=== PATIENT | male | born 1975 | race African-American/Black ===

== ENCOUNTER 2017-03-27 19:05 | Emergency (ER) | payer MEDICAID, OTHER ==
[~2017-03-27] VITALS: Ht 170.2 cm; Wt 88.0 kg
[~2017-03-27 19:05] MED LIST: ASPI1TAB57 PO; ATOR20TA15 PO; CARV6.252 PO; CEFU1TAB20 PO; FURO1TAB60 PO; GABA100C4 PO; LEVEMIR SQ; LISI-519 PO; PLAV75TA29 PO; POTA-163 PO; SPIR25TA PO; TRAZ50TA12 PO
[2017-03-27 19:08] VITALS: BP 123/90; PULSE 86; RESP 20; TEMP 98.1; O2SAT 91
--- NOTE | 2017-03-27 19:37 | PD ---
HPI Chief Complaint: Cold / Flu Symptoms Time Seen by Provider: 19:26 Travel History International Travel<30 days: No Contact w/Intl Traveler<30days: No Traveled to known affect area: No History of Present Illness HPI 42-year-old black male presents from her apartment with complaints of cough, congestion, shortness of breath and wheezing. He has had symptoms posttussive emesis. Patient denies any fever or chills. No ear pain or sore throat. Patient states that he has had no ill nausea. He states that he vomited with coughing. No abdominal pain. No dysuria or frequency. Symptoms are mild to moderate. Worse with coughing. No alleviating factors. PFSH Past Medical History Atrial Fibrillation: Yes Cancer: No Cardiovascular Problems: Yes (PACEMAKER, STENT PLACEMENT) High Cholesterol: Yes Chest Pain: Yes Congestive Heart Failure: Yes Diabetes: Yes Patient Takes Glucophage: Yes Diminished Hearing: No Endocrine: Yes Gastrointestinal Disorders: No Genitourinary: No Hypertension: Yes Implanted Vascular Access Dvce: Yes Musculoskeletal: No Neurologic: No Psychiatric: No Reproductive: No Respiratory: No Immunizations Current: Yes Myocardial Infarction: Yes (X 1 IN 2009) Past Surgical History AICD: Yes ([id number]) Body Medical Devices: PACEMAKER Cardiac Surgery: Yes (AICD/PACER) Coronary Stent: Yes (X 1 ) Other Surgery: Yes (PACEMAKER, stent) Social History Alcohol Use: Yes (SOCIALLY) Tobacco Use: No Substance Use: No Allergies-Medications (Allergen,Severity, Reaction): Coded Allergies: hydromorphone (Verified Allergy, Severe, Hives, 03/27/17) phenobarbital (Unverified Allergy, Unknown, 03/27/17) Reported Meds & Prescriptions Reported Meds & Active Scripts Active Proventil Hfa 6.7 GM Inh (Albuterol Sulfate) 90 Mcg/Act Aer 2 Puff INH Q4-6H PRN Deltasone (Prednisone) 20 Mg Tab 20 Mg PO BID 5 Days Aspirin 81 (Aspirin) 81 Mg Tabdr 81 Mg PO DAILY Levemir Inj (Insulin Detemir) 1,000 unit/ 10 ML Vial 30 Units SQ HS Do not mix with any other Insulin. Lisinopril 5 Mg Tab 5 Mg PO DAILY Spironolactone 25 Mg Tab 25 Mg PO DAILY Plavix (Clopidogrel Bisulfate) 75 Mg Tab 75 Mg PO DAILY Carvedilol 6.25 Mg Tab 6.25 Mg PO BID Potassium Chloride ER (Potassium Chloride) 20 Meq Tab 20 Meq PO DAILY Lasix (Furosemide) 40 Mg Tab 40 Mg PO DAILY Atorvastatin (Atorvastatin Calcium) 20 Mg Tab 20 Mg PO HS Trazodone (Trazodone HCl) 50 Mg Tab 50 Mg PO HS Gabapentin 100 Mg Cap 100 Mg PO TID Review of Systems Except as stated in HPI: all other systems reviewed are Neg Physical Exam Narrative GENERAL: Well-developed, well-nourished in no apparent distress. Nontoxic appearing. HEAD: Normocephalic, atraumatic. EYES: Pupils equal round and reactive. Extraocular motions intact. No scleral icterus. No injection or drainage. ENT: Nose clear. Throat without erythema, tonsillar hypertrophy or exudate. Uvula midline. Airway patent. NECK: Trachea midline. Supple, nontender, moves head freely. No central bony tenderness or spasm. CARDIOVASCULAR: Regular rate and rhythm without murmurs, gallops, or rubs. RESPIRATORY: Scattered rhonchi with fine expiratory wheeze. No Rales. Speaks in full complete sentences. GASTROINTESTINAL: Abdomen soft, non-tender, nondistended. No hepato-splenomegaly , or palpable masses. No guarding. EXTREMITIES: No clubbing, cyanosis, or edema. No joint tenderness. BACK: Nontender without deformity. No flank tenderness. NEUROLOGICAL: Awake, alert and oriented x 3 .Cranial nerves grossly intact. Motor and sensory grossly within normal limits. Normal speech. Data Data Last Documented VS Vital Signs Date Time Temp Pulse Resp B/P (MAP) Pulse Ox O2 Delivery O2 Flow Rate FiO2 03/27/17 19:08 98.1 86 20 123/90 (101) 91 Orders Orders Ondansetron Odt (Zofran Odt) (03/27/17 19:45) Prednisone (Deltasone) (03/27/17 19:45) Albuterol-Ipratropium Neb (Duoneb Neb) (03/27/17 19:45) Electrocardiogram (03/27/17 20:42) Complete Blood Count With Diff (03/27/17 20:42) Basic Metabolic Panel (Bmp) (03/27/17 20:42) Troponin I (03/27/17 20:42) B-Type Natriuretic Peptide (03/27/17 20:42) Chest, Single Ap (03/27/17 20:42) Iv Access Insert/Monitor (03/27/17 20:42) Albuterol-Ipratropium Neb (Duoneb Neb) (03/27/17 20:45) Ed Discharge Order (03/27/17 22:22) Labs Laboratory Tests Test 03/27/17 21:00 White Blood Count 6.9 TH/MM3 Red Blood Count 6.80 MIL/MM3 Hemoglobin 14.1 GM/DL Hematocrit 43.4 % Mean Corpuscular Volume 63.9 FL Mean Corpuscular Hemoglobin 20.7 PG Mean Corpuscular Hemoglobin Concent 32.5 % Red Cell Distribution Width 20.2 % Platelet Count 176 TH/MM3 Mean Platelet Volume 8.7 FL Neutrophils (%) (Auto) 77.6 % Lymphocytes (%) (Auto) 13.0 % Monocytes (%) (Auto) 8.2 % Eosinophils (%) (Auto) 0.5 % Basophils (%) (Auto) 0.7 % Neutrophils # (Auto) 5.4 TH/MM3 Lymphocytes # (Auto) 0.9 TH/MM3 Monocytes # (Auto) 0.6 TH/MM3 Eosinophils # (Auto) 0.0 TH/MM3 Basophils # (Auto) 0.0 TH/MM3 CBC Comment DIFF FINAL Differential Comment Blood Urea Nitrogen 16 MG/DL Creatinine 1.26 MG/DL Random Glucose 166 MG/DL Calcium Level 8.0 MG/DL Sodium Level 131 MEQ/L Potassium Level 3.2 MEQ/L Chloride Level 94 MEQ/L Carbon Dioxide Level 27.4 MEQ/L Anion Gap 10 MEQ/L Estimat Glomerular Filtration Rate 76 ML/MIN Troponin I 0.03 NG/ML B-Type Natriuretic Peptide 555 PG/ML MDM Medical Decision Making Medical Screen Exam Complete: Yes Emergency Medical Condition: Yes Medical Record Reviewed: Yes Interpretation(s) Laboratory Tests Test 03/27/17 21:00 White Blood Count 6.9 TH/MM3 Red Blood Count 6.80 MIL/MM3 Hemoglobin 14.1 GM/DL Hematocrit 43.4 % Mean Corpuscular Volume 63.9 FL Mean Corpuscular Hemoglobin 20.7 PG Mean Corpuscular Hemoglobin Concent 32.5 % Red Cell Distribution Width 20.2 % Platelet Count 176 TH/MM3 Mean Platelet Volume 8.7 FL Neutrophils (%) (Auto) 77.6 % Lymphocytes (%) (Auto) 13.0 % Monocytes (%) (Auto) 8.2 % Eosinophils (%) (Auto) 0.5 % Basophils (%) (Auto) 0.7 % Neutrophils # (Auto) 5.4 TH/MM3 Lymphocytes # (Auto) 0.9 TH/MM3 Monocytes # (Auto) 0.6 TH/MM3 Eosinophils # (Auto) 0.0 TH/MM3 Basophils # (Auto) 0.0 TH/MM3 CBC Comment DIFF FINAL Differential Comment Blood Urea Nitrogen 16 MG/DL Creatinine 1.26 MG/DL Random Glucose 166 MG/DL Calcium Level 8.0 MG/DL Sodium Level 131 MEQ/L Potassium Level 3.2 MEQ/L Chloride Level 94 MEQ/L Carbon Dioxide Level 27.4 MEQ/L Anion Gap 10 MEQ/L Estimat Glomerular Filtration Rate 76 ML/MIN Troponin I 0.03 NG/ML B-Type Natriuretic Peptide 555 PG/ML Last 24 hours Impressions Chest X-Ray 03/27/172041 Signed Impressions: Service Date/Time: Monday, March 27, 2017 21:02 - CONCLUSION: Slight cardiomegaly. Tae Kumar MD Differential Diagnosis MDM: High Differential diagnoses: Pneumonia, bronchitis, URI, asthma, RAD, legionnaire's disease, SARS, ARDS, influenza, bronchiolitis, RSV,PE,CHF Narrative Course Patient is given Zofran 4 mg by mouth, prednisone 40 mg by mouth, and 2 DUO nebs Review the patient's medical record indicates that he has not refilled his medications and nearly a month. He was treated back in January for acute renal failure and congestive heart failure. Due to these new findings we will perform basic laboratory tests including cardiac markers, EKG and chest x-ray. Patient has had a total of 4 respiratory treatments. He's had prednisone. Patient is feeling significantly improved. His had much improved airway movement. Patient's initial wheezing had worsen but now has improved after treatments. I agreed to refill his medications which are numerous. Patient reports having appointment with a physician this week. Patient has not followed up with anyone since his discharge in January. Patient has been strongly advised to fill his prescriptions and continue with his appointment on the third. Patient verbally states understanding. This is dyspnea, reactive airway disease, chronic renal failure, chronic congestive heart failure Diagnosis Primary Impression: Dyspnea Qualified Codes: R06.02 - Shortness of breath Additional Impressions: Reactive airway disease Qualified Codes: J45.40 - Moderate persistent asthma, uncomplicated Chronic renal failure Qualified Codes: N18.9 - Chronic kidney disease, unspecified Chronic congestive heart failure Qualified Codes: I50.32 - Chronic diastolic (congestive) heart failure Patient Instructions: General Instructions Additional Instructions: Rest. Stop smoking. Fill your medications and take as directed. Follow-up with your doctor on the third as scheduled. Return to the ER if any problems. Med/Other Pt SpecificInfo: Prescription(s) given Scripts Albuterol 6.7 GM Inh (Proventil Hfa 6.7 GM Inh) 90 Mcg/Act Aer 2 PUFF INH Q4-6H Y for SHORTNESS OF BREATH, #1 INHALER 0 Refills Prov: Nicci Garland DO 03/27/17 Prednisone (Deltasone) 20 Mg Tab 20 MG PO BID for 5 Days, #10 TAB 0 Refills Prov: Nicci Garland DO 03/27/[address] (Aspirin 81) 81 Mg Tabdr 81 MG PO DAILY for Blood Clot Prevention, #30 TAB 0 Refills Prov: Nicci Garland DO 03/27/17 Insulin Detemir Inj (Levemir Inj) 1,000 unit/ 10 ML Vial 30 UNITS SQ HS for Blood Sugar Management, #30 VIAL 0 Refills Do not mix with any other Insulin. Prov: Nicci Garland DO 03/27/17 Lisinopril (Lisinopril) 5 Mg Tab 5 MG PO DAILY for Blood Pressure Management, #30 TAB 0 Refills Prov: Nicci Garland DO 03/27/17 Spironolactone (Spironolactone) 25 Mg Tab 25 MG PO DAILY for Blood Pressure Management, #30 TAB 0 Refills Prov: Nicci Garland DO 03/27/17 Clopidogrel (Plavix) 75 Mg Tab 75 MG PO DAILY for Blood Clot Prevention, #30 TAB 0 Refills Prov: Nicci Garland DO 03/27/17 Carvedilol (Carvedilol) 6.25 Mg Tab 6.25 MG PO BID, #60 TAB 0 Refills Prov: Nicci Garland DO 03/27/17 Potassium Chloride ER (Potassium Chloride ER) 20 Meq Tab 20 MEQ PO DAILY for Electrolyte Replacement, #30 TAB 0 Refills Prov: Nicci Garland DO 03/27/17 Furosemide (Lasix) 40 Mg Tab 40 MG PO DAILY for HEART FAILURE, #30 TAB 0 Refills Prov: Nicci Garland DO 03/27/17 Atorvastatin (Atorvastatin) 20 Mg Tab 20 MG PO HS for Cholesterol Management, #30 TAB 0 Refills Prov: Nicci Garland DO 03/27/17 Disposition: 01 DISCHARGE HOME Condition: Stable Tony Flowers Mar 27, 2017 19:37
[2017-03-27] MEDS ORDERED: ONDANSETRON ODT 4 MG TAB PO ONE (19:45)
[2017-03-27] MEDS ORDERED: predniSONE 20 MG TAB PO ONE (19:45)
[2017-03-27] MEDS: RESP: ALBUTEROL 2.5 MG/IPRATROPIUM 0.5 MG NEB (SCH) INH ×2 (20:12→21:06)
[2017-03-27 21:17] LABS: AUTOMATED NEUTROPHIL # 5.4 TH/MM3 (1.8-7.7); BASOPHIL % 0.7 % (0.0-2.0); EOSINOPHIL % 0.5 % (0.0-4.0); HEMATOCRIT 43.4 % (39.0-51.0); HEMOGLOBIN 14.1 GM/DL (13.0-17.0); LYMPHOCYTE # 0.9 TH/MM3 (1.0-4.8); MEAN CELL VOLUME 63.9 FL (80.0-100.0); MEAN CORPUSCULAR HEMOGLOBIN 20.7 PG (27.0-34.0); MEAN CORPUSCULAR HGB CONC 32.5 % (32.0-36.0); MEAN PLATELET VOLUME 8.7 FL (7.0-11.0); MONO % 8.2 % (0.0-8.0); MONOCYTE # 0.6 TH/MM3 (0-0.9); NEUT % 77.6 % (16.0-70.0); PLATELET COUNT 176 TH/MM3 (150-450); RED CELL DISTRIBUTION WIDTH 20.2 % (11.6-17.2); WHITE BLOOD COUNT 6.9 TH/MM3 (4.0-11.0)
--- NOTE | 2017-03-27 21:31 | RADRPT ---
EXAM DATE/TIME: 03/27/2017 21:02 [facility] COMPARISON: CHEST PA & LAT, February 06, 2017, 2:47. INDICATIONS : Cough and congestion for four days. MEDICAL HISTORY : Diabetes mellitus type II. Smoker. SURGICAL HISTORY : Pacemaker. Pacemaker. Cardiac stent. ENCOUNTER: Initial ACUITY: 4 - 6 days PAIN SCORE: 0/10 LOCATION: Bilateral chest FINDINGS: The lungs are clear without infiltrate, nodule, or mass. There is no appreciable pleural effusion fo r technique. Slight cardiomegaly seen. Left subclavian transvenous pacer wires are present with tips in the right atrium and right ventricle. CONCLUSION: Slight cardiomegaly. Tae Kumar MD on March 27, 2017 at 21:28 Board Certified Radiologist. This report was verified electronically.
[2017-03-27 22:08] LABS: BICARBONATE 27.4 MEQ/L (21.0-32.0); CREATININE 1.26 MG/DL (0.60-1.30)
[2017-03-27 22:11] LABS: TROPONIN I 0.03 NG/ML (0.02-0.05)
[2017-03-27] MEDS ORDERED: PLAV75TA29 PO (22:18)
[2017-03-27] MEDS ORDERED: ASPI1TAB57 PO (22:18)
[2017-03-27] MEDS ORDERED: POTA-163 PO (22:18)
[2017-03-27] MEDS ORDERED: FURO1TAB60 PO (22:18)
[2017-03-27] MEDS ORDERED: CARV6.252 PO (22:18)
[2017-03-27] MEDS ORDERED: LEVEMIR SQ (22:18)
[2017-03-27] MEDS ORDERED: LISI-519 PO (22:18)
[2017-03-27] MEDS ORDERED: ATOR20TA15 PO (22:18)
[2017-03-27] MEDS ORDERED: SPIR25TA PO (22:18)
[2017-03-27] MEDS ORDERED: PRED-503 PO (22:19)
[2017-03-27] MEDS ORDERED: ALBU6.7H INH (22:19)
--- NOTE | 2017-03-28 17:56 | EKG ---
Date Performed: 03/27/2017 Time Performed: 20:49:08 PTAGE: 42 years EKG: ELECTRONIC VENTRICULAR PACEMAKER ABNORMAL RHYTHM ECG PREVIOUS TRACING : 02/06/2017 02.03 Compared to prior tracing no significant change DOCTOR: Tapan Browning Interpretating Date/Time 03/28/2017 17:56:12
== END 2017-03-27 23:06 | disposition home or self-care (01) ==
LOC: NEPD 19:05
DX: J45.40 Moderate persistent asthma, uncomplicated (principal); I13.0 Hypertensive heart and chronic kidney disease with heart failure and stage 1 through stage 4 chronic kidney disease, or unspecified chronic kidney disease; N18.9 Chronic kidney disease, unspecified; I50.32 Chronic diastolic (congestive) heart failure; E11.22 Type 2 diabetes mellitus with diabetic chronic kidney disease; I48.91 Unspecified atrial fibrillation; E78.00 Pure hypercholesterolemia, unspecified; I25.2 Old myocardial infarction
CPT/HCPCS: 71045; 80048; 83880; 84484; 85025; 93005; 94640; 94664; 99285; J7512

== ENCOUNTER 2017-04-21 02:04 | Emergency (ER) | payer OTHER ==
[~2017-04-21] VITALS: Ht 180.3 cm; Wt 98.0 kg
[~2017-04-21 02:04] MED LIST changes: +ALBU6.7H INH; -CEFU1TAB20 PO; +PRED-503 PO
[2017-04-21 02:11] VITALS: BP 125/84; PULSE 90; RESP 24; O2SAT 100
[2017-04-21] MEDS ORDERED: methylPREDNISolone SOD SUCC 125 MG/2 ML VIAL IV PUSH ONE (02:45)
[2017-04-21] MEDS ORDERED: NITROGLYCERIN 2% OINT 1 GM PACKET TOP ONE (02:45)
[2017-04-21] MEDS ORDERED: ASPIRIN 325 MG TAB PO ONE (02:45)
[2017-04-21] MEDS ORDERED: SODIUM CHLORIDE 0.9% FLUSH 10 ML FLUSH IVF PRN (02:45)
[2017-04-21 03:03] LABS: AUTOMATED NEUTROPHIL # 4.9 TH/MM3 (1.8-7.7); BASOPHIL # 0.1 TH/MM3 (0-0.2); BASOPHIL % 1.1 % (0.0-2.0); EOSINOPHIL % 0.7 % (0.0-4.0); HEMATOCRIT 43.2 % (39.0-51.0); HEMOGLOBIN 14.2 GM/DL (13.0-17.0); LYMPH % 23.6 % (9.0-44.0); LYMPHOCYTE # 1.7 TH/MM3 (1.0-4.8); MEAN CELL VOLUME 64.6 FL (80.0-100.0); MEAN CORPUSCULAR HEMOGLOBIN 21.2 PG (27.0-34.0); MEAN CORPUSCULAR HGB CONC 32.9 % (32.0-36.0); MEAN PLATELET VOLUME 8.9 FL (7.0-11.0); MONO % 5.6 % (0.0-8.0); MONOCYTE # 0.4 TH/MM3 (0-0.9); PLATELET COUNT 216 TH/MM3 (150-450); RED BLOOD COUNT 6.69 MIL/MM3 (4.50-5.90); RED CELL DISTRIBUTION WIDTH 20.6 % (11.6-17.2); WHITE BLOOD COUNT 7.1 TH/MM3 (4.0-11.0)
--- NOTE | 2017-04-21 03:14 | RADRPT ---
EXAM DATE/TIME: 04/21/2017 02:45 [facility] COMPARISON: CHEST SINGLE AP, March 27, 2017, 21:02. INDICATIONS : Left side Chest pain and shortness of breath MEDICAL HISTORY : Hypercholesterolemia. Hypertension Diabetes mellitus type II. A-Fib, RI SURGICAL HISTORY : Pacemaker. Coronary Stent ENCOUNTER: Initial ACUITY: 1 day PAIN SCORE: 7/10 LOCATION: Bilateral chest FINDINGS: A single view of the chest demonstrates the lungs to be symmetrically aerated without evidence of mas s, infiltrate or effusion. The cardiomediastinal contours are unremarkable. Bilate pacemaker in [place] ce. Osseous structures are intact. CONCLUSION: No acute disease. Home Nelson MD on April 21, 2017 at 3:11 Board Certified Radiologist. This report was verified electronically.
[2017-04-21 03:21] VITALS: BP 128/95; PULSE 128; RESP 18; O2SAT 100
[2017-04-21 03:26] LABS: INTERNATIONAL NORMALIZED RATIO 1.2 RATIO
[2017-04-21 03:30] LABS: ALBUMIN 2.9 GM/DL (3.4-5.0); ALT (GPT) 26 U/L (12-78); AST (GOT) 24 U/L (15-37); BICARBONATE 25.2 MEQ/L (21.0-32.0); BLOOD UREA NITROGEN 14 MG/DL (7-18); CALCIUM 8.2 MG/DL (8.5-10.1); CHLORIDE 103 MEQ/L (98-107); CREATININE 1.33 MG/DL (0.60-1.30); GLOMERULAR FILTRATION RATE 71 ML/MIN (>89); GLUCOSE,RANDOM 227 MG/DL (74-106); LIPASE 121 U/L (73-393); MAGNESIUM 1.7 MG/DL (1.5-2.5); SODIUM (NA) 137 MEQ/L (136-145)
[2017-04-21 03:34] LABS: ALKALINE PHOSPHATASE 178 U/L (45-117); TOTAL BILIRUBIN ADULT 1.7 MG/DL (0.2-1.0); TOTAL PROTEIN 6.5 GM/DL (6.4-8.2); TROPONIN I 0.02 NG/ML (0.02-0.05)
[2017-04-21 04:22] LABS: D-DIMER 0.28 MG/L FEU (0.00-0.50)
[2017-04-21] MEDS ORDERED: FUROSEMIDE 20 MG/2 ML VIAL IV PUSH ONE (04:45)
[2017-04-21] MEDS ORDERED: traMADol HCL 50 MG TAB PO ONE (05:00)
--- NOTE | 2017-04-21 05:08 | PD ---
HPI . Chest pain Chief Complaint: Chest Pain Time Seen by Provider: 02:20 Travel History International Travel<30 days: No Contact w/Intl Traveler<30days: No Traveled to known affect area: No History of Present Illness HPI 42-year-old male extremity poor historian with vague complaints of chest pain that he cannot characterize regarding quality, severity, radiation, association symptoms, or temporal onset or duration. Patient notes being upset regarding social situations at home. No suicidal or homicidal ideations. Nurse Wanda YANEZ discussed the patient's situation with sister over the phone, who is reportedly similarly vague [facility] Past Medical History Narrative Medical Past medical history reviewed. Atrial Fibrillation: Yes Cancer: No Cardiovascular Problems: Yes (PACEMAKER, STENT PLACEMENT) High Cholesterol: Yes Chest Pain: Yes Congestive Heart Failure: Yes Diabetes: Yes Patient Takes Glucophage: No Diminished Hearing: No Endocrine: Yes Gastrointestinal Disorders: No Genitourinary: No Hypertension: Yes Implanted Vascular Access Dvce: Yes Musculoskeletal: No Neurologic: No Psychiatric: No Reproductive: No Respiratory: No Immunizations Current: Yes Myocardial Infarction: Yes (X 1 IN 2009) Past Surgical History AICD: Yes ([id number]) Body Medical Devices: PACEMAKER Cardiac Surgery: Yes (AICD/PACER) Coronary Stent: Yes (X 1 ) Other Surgery: Yes (PACEMAKER, stent) Social History Alcohol Use: Yes (SOCIALLY) Tobacco Use: No Substance Use: No Allergies-Medications (Allergen,Severity, Reaction): Coded Allergies: hydromorphone (Verified Allergy, Severe, Hives, 03/27/17) phenobarbital (Unverified Allergy, Unknown, 03/27/17) Reported Meds & Prescriptions Reported Meds & Active Scripts Active Deltasone (Prednisone) 20 Mg Tab 20 Mg PO BID 5 Days Aspirin 81 (Aspirin) 81 Mg Tabdr 81 Mg PO DAILY Levemir Inj (Insulin Detemir) 1,000 unit/ 10 ML Vial 30 Units SQ HS Do not mix with any other Insulin. Lisinopril 5 Mg Tab 5 Mg PO DAILY Spironolactone 25 Mg Tab 25 Mg PO DAILY Plavix (Clopidogrel Bisulfate) 75 Mg Tab 75 Mg PO DAILY Carvedilol 6.25 Mg Tab 6.25 Mg PO BID Potassium Chloride ER (Potassium Chloride) 20 Meq Tab 20 Meq PO DAILY Lasix (Furosemide) 40 Mg Tab 40 Mg PO DAILY Atorvastatin (Atorvastatin Calcium) 20 Mg Tab 20 Mg PO HS Trazodone (Trazodone HCl) 50 Mg Tab 50 Mg PO HS Gabapentin 100 Mg Cap 100 Mg PO TID Narrative Medication Allergies and medications reviewed Review of Systems ROS Limitations: Poor Historian Except as stated in HPI: all other systems reviewed are Neg Eyes: No: Visual changes Cardiovascular: Positive: Chest Pain or Discomfort Musculoskeletal: Positive: Pain Physical Exam Narrative GENERAL: Awake and alert, seemingly no acute distress. Vital signs afebrile normal and stable SKIN: Warm and dry. Color is normal no diaphoresis cyanosis or pallor HEAD: Atraumatic. Normocephalic. EYES: Pupils equal and round. No scleral icterus. No injection or drainage. ENT: No nasal bleeding or discharge. Mucous membranes pink and moist. NECK: Trachea midline. No JVD. Supple nontender full range of motion CARDIOVASCULAR: Regular rate and rhythm. S1 and S2 no murmurs or gallops RESPIRATORY: No accessory muscle use. Clear to auscultation. Breath sounds equal bilaterally. GASTROINTESTINAL: Abdomen soft, non-tender, nondistended. Hepatic and splenic margins not palpable. MUSCULOSKELETAL: Extremities without clubbing, cyanosis, or edema. No obvious deformities. NEUROLOGICAL: Awake and alert. No obvious deficits PSYCHIATRIC: Poor historian difficult exam Data Data Last Documented VS Vital Signs Date Time Temp Pulse Resp B/P (MAP) Pulse Ox O2 Delivery O2 Flow Rate FiO2 04/21/17 03:21 128 18 128/95 (106) 100 Nasal Cannula 2.00 Orders Orders Electrocardiogram (04/21/17 02:32) B-Type Natriuretic Peptide (04/21/17 02:32) Ckmb (Isoenzyme) Profile (04/21/17 02:32) Complete Blood Count With Diff (04/21/17 02:32) Comprehensive Metabolic Panel (04/21/17 02:32) D-Dimer (04/21/17 02:32) Magnesium (Mg) (04/21/17 02:32) Prothrombin Time / Inr (Pt) (04/21/17 02:32) Act Partial Throm Time (Ptt) (04/21/17 02:32) Troponin I (04/21/17 02:32) Lipase (04/21/17 02:32) Chest, Single Ap (04/21/17 02:32) Ecg Monitoring (04/21/17 02:32) Bilateral Bp Monitoring (04/21/17 02:32) Iv Access Insert/Monitor (04/21/17 02:32) Oximetry (04/21/17 02:32) Oxygen Administration (04/21/17 02:32) Aspirin (Aspirin) (04/21/17 02:45) Nitroglycerin 2% Oint (Nitroglycerin 2% (04/21/17 02:45) Sodium Chloride 0.9% Flush (Ns Flush) (04/21/17 02:45) Methylprednisolone So Succ Inj (Solumedr (04/21/17 02:45) Westergren Sedimentation Rate (04/21/17 02:32) Furosemide Inj (Lasix Inj) (04/21/17 04:45) Troponin I (04/21/17 04:45) Tramadol (Ultram) (04/21/17 05:00) Labs Laboratory Tests Test 04/21/17 02:35 04/21/17 05:19 White Blood Count 7.1 TH/MM3 Red Blood Count 6.69 MIL/MM3 Hemoglobin 14.2 GM/DL Hematocrit 43.2 % Mean Corpuscular Volume 64.6 FL Mean Corpuscular Hemoglobin 21.2 PG Mean Corpuscular Hemoglobin Concent 32.9 % Red Cell Distribution Width 20.6 % Platelet Count 216 TH/MM3 Mean Platelet Volume 8.9 FL Neutrophils (%) (Auto) 69.0 % Lymphocytes (%) (Auto) 23.6 % Monocytes (%) (Auto) 5.6 % Eosinophils (%) (Auto) 0.7 % Basophils (%) (Auto) 1.1 % Neutrophils # (Auto) 4.9 TH/MM3 Lymphocytes # (Auto) 1.7 TH/MM3 Monocytes # (Auto) 0.4 TH/MM3 Eosinophils # (Auto) 0.0 TH/MM3 Basophils # (Auto) 0.1 TH/MM3 CBC Comment DIFF FINAL Differential Comment Erythrocyte Sedimentation Rate 1 mm/hr Prothrombin Time 12.0 SEC Prothromb Time International Ratio 1.2 RATIO Activated Partial Thromboplast Time 21.3 SEC D-Dimer Quantitative (PE/DVT) 0.28 MG/L FEU Blood Urea Nitrogen 14 MG/DL Creatinine 1.33 MG/DL Random Glucose 227 MG/DL Total Protein 6.5 GM/DL Albumin 2.9 GM/DL Calcium Level 8.2 MG/DL Magnesium Level 1.7 MG/DL Alkaline Phosphatase 178 U/L Aspartate Amino Transf (AST/SGOT) 24 U/L Alanine Aminotransferase (ALT/SGPT) 26 U/L Total Bilirubin 1.7 MG/DL Sodium Level 137 MEQ/L Potassium Level 3.9 MEQ/L Chloride Level 103 MEQ/L Carbon Dioxide Level 25.2 MEQ/L Anion Gap 9 MEQ/L Estimat Glomerular Filtration Rate 71 ML/MIN Total Creatine Kinase 45 U/L Troponin I 0.02 NG/ML 0.02 NG/ML B-Type Natriuretic Peptide 493 PG/ML Lipase 121 U/L MDM Medical Decision Making Medical Screen Exam Complete: Yes Emergency Medical Condition: Yes Medical Record Reviewed: Yes Differential Diagnosis Chest pain, fictitious disorder, Narrative Course 42-year-old male who initially had chest pain upon presentation, expressed being quite upset about some social situation at home that he would not elaborate upon however patient did deny suicidal or homicidal ideations. Patient has extensive past medical history drinks distal heart failure, pacemaker as well as a lung condition. Patient notes pain all over, but cannot or will not elaborate. As discussed with the patient's sister via phone, noted the patient started having these complaints 1 the landlord turn the heat off. No timeframe given for that occurrence. Patient cannot or will not reliably answer questions. Objective pruritic criteria obtained, EKG paced rhythm at 90 bpm, chest x-ray mild cardiomegaly, no infiltrates noted. Laboratory examinations reviewed, patient is mildly elevated BNP consistent with history of CHF and cardiomegaly noted on chest x-ray. Troponin normal. Repeat troponin pending. Diagnosis Primary Impression: Chest pain Qualified Codes: R07.9 - Chest pain, unspecified Patient Instructions: Chest Pain (ED), General Instructions Additional Instructions: Follow-up with your doctor. Return for worsening Disposition: 01 DISCHARGE HOME Condition: Stable Julius Yeager MD Apr 21, 2017 05:08
--- NOTE | 2017-04-21 08:33 | EKG ---
Date Performed: 04/21/2017 Time Performed: 02:11:51 PTAGE: 42 years EKG: ELECTRONIC VENTRICULAR PACEMAKER ABNORMAL RHYTHM ECG NO PREVIOUS TRACING DOCTOR: Mariusz Polanco Interpretating Date/Time 04/21/2017 08:32:52
== END 2017-04-21 06:56 | disposition home or self-care (01) ==
LOC: NEPE 02:04
DX: R07.9 Chest pain, unspecified (principal); I51.7 Cardiomegaly; I48.91 Unspecified atrial fibrillation; E78.00 Pure hypercholesterolemia, unspecified; I11.0 Hypertensive heart disease with heart failure; I50.9 Heart failure, unspecified; E11.9 Type 2 diabetes mellitus without complications; I25.2 Old myocardial infarction; R94.31 Abnormal electrocardiogram [ECG] [EKG]
CPT/HCPCS: 71045; 80053; 82550; 83690; 83735; 83880; 84484; 85025; 85379; 85610; 85652; 85730; 93005; 96374; 96375; 99285; J1940; J2930

== ENCOUNTER 2017-04-24 15:25 | Inpatient (IN) | payer OTHER, MEDICARE ==
[~2017-04-24] VITALS: Ht 180.3 cm; Wt 875.0 kg
[2017-04-24] VITALS (7 sets, daily range): BP systolic 135–147; BP diastolic 93–100; PULSE 88–104; RESP 18; TEMP 97.7; O2SAT 94–98
[~2017-04-24 15:25] MED LIST changes: -ALBU6.7H INH
[2017-04-24] MEDS ORDERED: SODIUM CHLOR 0.9% 1000 ML INJ 1,000 ML IV ONE (15:34)
--- NOTE | 2017-04-24 15:41 | PD ---
HPI Chief Complaint: stroke alert Time Seen by Provider: 15:33 Travel History International Travel<30 days: No Contact w/Intl Traveler<30days: No History of Present Illness HPI Patient 42-year-old male who is history is extremely limited by the fact that he is altered mental status presents emergency Department with left-sided weakness apparently onset approximately 30 minutes prior to arrival crying the EMS. EMS stated the family noticed that he had left-sided facial droop and was unable to move his left upper trauma left lower extremity and that he was nearly obtunded, no evidence of substance use on scene, patient apparently has a history of diabetes and his prehospital sugar was in excess of 300, patient is able to open his eyes to command, is very difficult to get him to follow commands secondary to his level of alertness. He is nearly incomprehensible words. This significantly limits history. Patient's sister arrive sometimes after and states he does have a history of congestive heart failure indeed has been here many times for chest pain and headache in the recent past. He takes Plavix but is not on any blood thinners according to her. PFSH Past Medical History Atrial Fibrillation: Yes Cancer: No Cardiovascular Problems: Yes (PACEMAKER, STENT PLACEMENT) High Cholesterol: Yes Chest Pain: Yes Congestive Heart Failure: Yes Diabetes: Yes Diminished Hearing: No Endocrine: Yes Gastrointestinal Disorders: No Genitourinary: No Hypertension: Yes Implanted Vascular Access Dvce: Yes Musculoskeletal: No Neurologic: No Psychiatric: No Reproductive: No Respiratory: No Immunizations Current: Yes Myocardial Infarction: Yes (X 1 IN 2009) Past Surgical History AICD: Yes ([id number]) Body Medical Devices: PACEMAKER Cardiac Surgery: Yes (AICD/PACER) Coronary Stent: Yes (X 1 ) Other Surgery: Yes (PACEMAKER, stent) Social History Alcohol Use: Yes (SOCIALLY) Tobacco Use: No Substance Use: No Allergies-Medications (Allergen,Severity, Reaction): Coded Allergies: hydromorphone (Verified Allergy, Severe, Hives, 03/27/17) phenobarbital (Unverified Allergy, Unknown, 03/27/17) MRI PRECAUTION (Verified Adverse Reaction, Severe, 04/24/17) [facility] PACEMAKER/DEFIB 04/24/17 COLLIN Reported Meds & Prescriptions Reported Meds & Active Scripts Active Deltasone (Prednisone) 20 Mg Tab 20 Mg PO BID 5 Days Aspirin 81 (Aspirin) 81 Mg Tabdr 81 Mg PO DAILY Levemir Inj (Insulin Detemir) 1,000 unit/ 10 ML Vial 30 Units SQ HS Do not mix with any other Insulin. Lisinopril 5 Mg Tab 5 Mg PO DAILY Spironolactone 25 Mg Tab 25 Mg PO DAILY Plavix (Clopidogrel Bisulfate) 75 Mg Tab 75 Mg PO DAILY Carvedilol 6.25 Mg Tab 6.25 Mg PO BID Potassium Chloride ER (Potassium Chloride) 20 Meq Tab 20 Meq PO DAILY Lasix (Furosemide) 40 Mg Tab 40 Mg PO DAILY Atorvastatin (Atorvastatin Calcium) 20 Mg Tab 20 Mg PO HS Trazodone (Trazodone HCl) 50 Mg Tab 50 Mg PO HS Gabapentin 100 Mg Cap 100 Mg PO TID Review of Systems ROS Limitations: Altered Mental Status Physical Exam Exam Limitations: Altered Mental Status Narrative GENERAL: Well-developed obese male, obvious left-sided facial droop. SKIN: Focused skin assessment warm/dry. HEAD: Atraumatic. Normocephalic. EYES: Pupils equal and round. No scleral icterus. No injection or drainage. Preference for left-sided gaze ENT: No nasal bleeding or discharge. Mucous membranes pink and moist. NECK: Trachea midline. No JVD. CARDIOVASCULAR: Regular rate and rhythm. No murmur appreciated. RESPIRATORY: No accessory muscle use. Clear to auscultation. Breath sounds equal bilaterally. GASTROINTESTINAL: Abdomen soft, non-tender, nondistended. Hepatic and splenic margins not palpable. MUSCULOSKELETAL: No obvious deformities. No clubbing. No cyanosis. No edema. NEUROLOGICAL: Awake and somnolent bordering on lethargic, GCS:[id number]=04. Patient is an obvious left-sided facial droop with some drooling, he is coughing indicating protection of his airway. Patient has some twitching of his left hand and left foot which is singular, downgoing Babinski on the right, no response on the left, pupils are sluggish but 4 mm and equal. He has a preference for left-sided gaze. Data Data Last Documented VS Vital Signs Date Time Temp Pulse Resp B/P (MAP) Pulse Ox O2 Delivery O2 Flow Rate FiO2 04/24/17 16:44 100 18 141/95 (110) 98 Nasal Cannula 2.00 Orders Orders Diet Npo (04/24/17 Dinner) Activity Bed Rest (04/24/17 ) Electrocardiogram (04/24/17 ) I-Stat Profile (04/24/17 15:34) Prothrombin Time / Inr (Pt) (04/24/17 15:34) Act Partial Throm Time (Ptt) (04/24/17 15:34) Complete Blood Count With Diff (04/24/17 15:34) Fibrinogen (04/24/17 15:34) Creatine Kinase (Cpk) (04/24/17 15:34) Troponin I (04/24/17 15:34) Ua Includes Microscopic (04/24/17 15:34) Drug Screen, Random Urine (04/24/17 15:34) Type And Screen (04/24/17 15:34) Ct Brain W/O Iv Contrast(Rout) (04/24/17 ) Cta Brain W Iv Contrast W 3d (04/24/17 15:34) Cta Neck W Iv Contrast W 3d (04/24/17 15:34) Consult Neurology (04/24/17 ) Ecg Monitoring (04/24/17 15:34) Neuro Checks Q2HX12,Q4H (04/24/17 15:34) Nursing Bedside Swallow Assess .ONCE (04/24/17 15:34) Iv Access Insert/Monitor (04/24/17 15:34) NPO (04/24/17 15:34) Oximetry (04/24/17 15:34) Resp Oxygen Nc Stroke (04/24/17 ) Sodium Chlor 0.9% 1000 Ml Inj (Ns 1000 M (04/24/17 15:34) Cath For Specimen (04/24/17 15:34) Blood Gas Venous (Vbg) (04/24/17 15:40) (Hub Use Only)Inp Phy Cons/Ref (04/24/17 ) Resp Blood Gas Venous (04/24/17 ) Westergren Sedimentation Rate (04/24/17 15:54) Giselle Screen (04/24/17 15:54) Thyroid Stimulating Hormone (04/24/17 15:54) Free Thyroxine (T4) (04/24/17 15:54) Vitamin B12 (04/24/17 15:54) ^ Seizure Precautions (04/24/17 15:54) Sodium Chlor 0.9% 1000 Ml Inj (Ns 1000 M (04/24/17 15:54) Lipid Profile (04/24/17 15:54) Scd&Teds Bilateral/Knee High ELIER.QSHIFT (04/24/17 15:54) ^ Call Pharmacy (04/24/17 15:57) Nih Stroke Scale - Nihss .ONCE (04/24/17 15:57) Urinary Catheter Insert/Apply (04/24/17 15:57) Anticoagulant Alert (04/24/17 15:57) ^ Post Infusion Restrictions (04/24/17 15:57) ^ Medication Alert (04/24/17 15:57) Vital Signs (Adult) .As directed (04/24/17 15:57) Notify Dr: Blood Pressure (04/24/17 15:57) ^ Medication Alert (04/24/17 15:57) Alteplase Bolus (Activase Bolus) (04/24/17 16:00) Alteplase Drip (Activase Drip) (04/24/17 16:00) Sodium Chloride 0.9% Inj (Ns Inj) (04/24/17 16:00) Misc Nursing Information (04/24/17 16:00) Resp Oxygen Nc Stroke (04/24/17 ) Ct Brain W/O Iv Contrast(Rout) (04/25/17 ) Comprehensive Metabolic Panel (04/24/17 16:07) Arterial Blood Gas (Abg) (04/24/17 ) Ct Cerebral Perf W Iv Cont W3d (04/24/17 16:35) Admit Order (Ed Use Only) (04/24/17 ) Labs Laboratory Tests Test 04/24/17 15:30 04/24/17 16:12 04/24/17 16:33 White Blood Count 9.1 TH/MM3 Red Blood Count 7.07 MIL/MM3 Hemoglobin 15.2 GM/DL Bedside Hemoglobin 16.3 G/DL Hematocrit 46.0 % Bedside Hematocrit 48.0 % Mean Corpuscular Volume 65.0 FL Mean Corpuscular Hemoglobin 21.5 PG Mean Corpuscular Hemoglobin Concent 33.1 % Red Cell Distribution Width 20.4 % Platelet Count 206 TH/MM3 Mean Platelet Volume 8.9 FL Neutrophils (%) (Auto) 83.3 % Lymphocytes (%) (Auto) 10.7 % Monocytes (%) (Auto) 5.0 % Eosinophils (%) (Auto) 0.5 % Basophils (%) (Auto) 0.5 % Neutrophils # (Auto) 7.6 TH/MM3 Lymphocytes # (Auto) 1.0 TH/MM3 Monocytes # (Auto) 0.5 TH/MM3 Eosinophils # (Auto) 0.0 TH/MM3 Basophils # (Auto) 0.0 TH/MM3 CBC Comment DIFF FINAL Differential Comment Erythrocyte Sedimentation Rate 1 mm/hr Prothrombin Time 11.5 SEC Prothromb Time International Ratio 1.1 RATIO Activated Partial Thromboplast Time 23.9 SEC Fibrinogen 286 mg/dL Bedside Sodium 135 MMOL/L Bedside Potassium 5.6 MMOL/L Bedside Chloride 98 MMOL/L Bedside Blood Urea Nitrogen 15 MG/DL Bedside Creatinine 1.2 MG/DL Bedside Glucose 320 MG/DL Total Creatine Kinase 146 U/L Troponin I 0.02 NG/ML Triglycerides Level 77 MG/DL Cholesterol Level 142 MG/DL LDL Cholesterol 94 MG/DL HDL Cholesterol 33.0 MG/DL Cholesterol/HDL Ratio 4.30 RATIO Vitamin B12 Level 738 PG/ML Free Thyroxine 1.10 NG/DL Thyroid Stimulating Hormone 3rd Gen 0.781 uIU/ML Blood Gas Puncture Site RT RADIAL Blood Gas Patient Temperature 98.6 Blood Gas HCO3 26 mmol/L Blood Gas Base Excess 2.1 mmol/L Blood Gas Oxygen Saturation 91 % Arterial Blood pH 7.47 Arterial Blood Partial Pressure CO2 36 mmHg Arterial Blood Partial Pressure O2 64 mmHG Arterial Blood Oxygen Content 18.5 Vol % Arterial Blood Carboxyhemoglobin 1.8 % Arterial Blood Methemoglobin 0.5 % Blood Gas Hemoglobin 14.5 G/DL Blood Gas Inspired Oxygen 21 % Urine Color YELLOW Urine Turbidity CLEAR Urine pH 6.5 Urine Specific [place] GREATER THAN 1.050 Urine Protein 300 mg/dL Urine Glucose (UA) 1000 mg/dL Urine Ketones 10 mg/dL Urine Occult Blood NEG Urine Nitrite NEG Urine Bilirubin NEG Urine Urobilinogen 4.0 MG/DL Urine Leukocyte Esterase NEG Urine RBC 7 /hpf Urine WBC 1 /hpf Urine Squamous Epithelial Cells <1 /hpf Urine Mucus FEW /lpf Urine Opiates Screen NEG Urine Barbiturates Screen NEG Urine Amphetamines Screen NEG Urine Benzodiazepines Screen NEG Urine Cocaine Screen NEG Urine Cannabinoids Screen POS MDM Medical Screen Exam Complete: Yes Emergency Medical Condition: Yes Differential Diagnosis Acute stroke, acute hemorrhagic stroke, acute ischemic stroke, drug induced delirium, metabolic disturbance. DKA. Narrative Course Patient 42-year-old male presents to the emergency department with left-sided weakness. The patient had dense left-sided deficits including a facial droop left-sided upper extremity and lower extremity weakness but certainly was very difficult to get to follow commands. Foaming respirations but is coughing to suggest protection of his airway.. Dr. Weathers is at bedside prior to patient going to CAT scan and is assessed the patient and agrees that he is a good candidate for TPA. he was given TPA after negative noncontrast CT, when returning to the emergency department, Avalos catheter was placed. Patient had screaming while having his Avalos catheter inserted. CTA still pending at this time, VBG shows no evidence of metabolic acidosis. Discussed with Dr. Lu who will admit. Critical Care Narrative Aggregate critical care time was 35 minutes. Time to perform other separately billable procedures was not included in the critical care time. My time did not include minutes spent treating any other patients simultaneously or on activities that did not directly contribute to the patient's treatment. The services I provided to this patient were to treat and/or prevent clinically significant deterioration that could result in: , disability, organ failure I provided critical care services requiring my management, as noted below: Chart data review, documentation time, medication orders and management, vital sign assessments/reviewing monitor data, ordering and reviewing lab tests, ordering and interpreting/reviewing x-rays and diagnostic studies, care of the patient and discussion of the patient with the admitting physicians. Stroke Alert NIHSS NIH Stroke Scale Result: 22 NIHSS Time Completed: 15:40 Diagnosis Diagnosis: Primary Impression: CVA (cerebral vascular accident) Admitting Physician Requests: Admit Condition: Serious Cal Hess MD Apr 24, 2017 15:41
[2017-04-24 15:54] LABS: AUTOMATED NEUTROPHIL # 7.6 TH/MM3 (1.8-7.7); BASOPHIL % 0.5 % (0.0-2.0); EOSINOPHIL % 0.5 % (0.0-4.0); HEMOGLOBIN 15.2 GM/DL (13.0-17.0); LYMPH % 10.7 % (9.0-44.0); MEAN CORPUSCULAR HEMOGLOBIN 21.5 PG (27.0-34.0); MEAN CORPUSCULAR HGB CONC 33.1 % (32.0-36.0); MEAN PLATELET VOLUME 8.9 FL (7.0-11.0); MONOCYTE # 0.5 TH/MM3 (0-0.9); NEUT % 83.3 % (16.0-70.0); PLATELET COUNT 206 TH/MM3 (150-450); RED BLOOD COUNT 7.07 MIL/MM3 (4.50-5.90); RED CELL DISTRIBUTION WIDTH 20.4 % (11.6-17.2); WHITE BLOOD COUNT 9.1 TH/MM3 (4.0-11.0)
[2017-04-24] MEDS: SODIUM CHLOR 0.9% 1000 ML INJ 1,000 ML IV SCH (15:54)
--- NOTE | 2017-04-24 15:57 | RADRPT ---
EXAM DATE/TIME: 04/24/2017 15:42 CORRECTION Corrected on: April 24, 2017; [facility] COMPARISON: No previous studies available for comparison. INDICATIONS : Stroke Alert, Left facial droop, left sided weakness RADIATION DOSE: 56.35 CTDIvol (mGy) This report was called by Dr. Lane to Dr. Hess at 1640 hrs. MEDICAL HISTORY : Non-responsive. SURGICAL HISTORY : Non-responsive. ENCOUNTER: Initial ACUITY: 1 day PAIN SCALE: Non-responsive LOCATION: cranial TECHNIQUE: Multiple contiguous axial images were obtained of the head. Using automated exposure control and adj ustment of the mA and/or kV according to patient size, radiation dose was kept as low as reasonably a chievable to obtain optimal diagnostic quality images. DICOM format image data is available electro nically for review and comparison. FINDINGS: CEREBRUM: The ventricles are normal for age. No evidence of midline shift, mass lesion, hemorrhage or acute in farction. No extra-axial fluid collections are seen. POSTERIOR FOSSA: The cerebellum and brainstem are intact. The 4th ventricle is midline. The cerebellopontine angle i s unremarkable. EXTRACRANIAL: The visualized portion of the orbits is intact. SKULL: The calvaria is intact. No evidence of skull fracture. CONCLUSION: Negative noncontrast CT. Ricki Lane MD on April 24, 2017 at 15:52 Board Certified Radiologist. This report was verified electronically. Ricki Lane MD on April 24, 2017 at 16:48 Board Certified Radiologist. This report was verified electronically.
[2017-04-24] MEDS ORDERED: SODIUM CHLORIDE 0.9% 50 ML BAG IVF ONE (16:00)
[2017-04-24] MEDS ORDERED: ALTEPLASE BOLUS 9 MG/9 ML SYR IV ONE (16:00)
[2017-04-24] MEDS ORDERED: ALTEPLASE DRIP IV ONE (16:00)
[2017-04-24] MEDS ORDERED: MISCELLANEOUS NURSING INFORMATION XX PRN (16:00)
[2017-04-24 16:23] LABS: INTERNATIONAL NORMALIZED RATIO 1.1 RATIO; PROTHROMBIN TIME - PATIENT 11.5 SEC (9.8-11.6)
[2017-04-24 16:28] LABS: TROPONIN I 0.02 NG/ML (0.02-0.05)
--- NOTE | 2017-04-24 16:43 | RADRPT ---
EXAM DATE/TIME: 04/24/2017 15:42 [facility] COMPARISON: No previous studies available for comparison. INDICATIONS : Unresponsive IV CONTRAST: 60 cc Omnipaque 350 (iohexol) IV RADIATION DOSE: 10.23 CTDIvol (mGy) MEDICAL HISTORY : Non-responsive. SURGICAL HISTORY : Non-responsive. ENCOUNTER: Initial ACUITY: 1 day PAIN SCALE: Non-responsive LOCATION: CTA head TECHNIQUE: Volumetric scanning was performed using a multi-row detector CT scanner. The data was post processed with a variety of visualization algorithms including full volume maximum intensity projection, multi -planar sliding thin slab reformation, curved planar reformation, and surface rendering techniques. Using automated exposure control and adjustment of the mA and/or kV according to patient size, radiat ion dose was kept as low as reasonably achievable to obtain optimal diagnostic quality images. DICO M format image data is available electronically for review and comparison. FINDINGS: There is excellent visualization of the major intracranial arteries out to the second-order branch ve ssels. There is no evidence for aneurysm, vessel truncation or stenosis, and no evidence for vascula r malformation. Multiple scattered intraluminal irregularity likely atherosclerotic changes. Hypoplastic P1 segment o n the left. Left-sided posterior communicating artery. No large vessel stenosis range are seen. CONCLUSION: Scattered atherosclerotic changes. No large vessel stenosis or aneurysm. Toro Khoury MD on April 24, 2017 at 16:36 Board Certified Radiologist. This report was verified electronically.
--- NOTE | 2017-04-24 16:54 | RADRPT ---
EXAM DATE/TIME: 04/24/2017 15:42 1 [facility] COMPARISON: No previous studies available for comparison. INDICATIONS : Unresponsive stroke alert patient with left-sided facial droop and left-sided weakness. IV CONTRAST: 40 cc Omnipaque 350 (iohexol) IV RADIATION DOSE: 141.17 CTDIvol (mGy) MEDICAL HISTORY : Non-responsive. SURGICAL HISTORY : Non-responsive. ENCOUNTER: Initial ACUITY: 1 day PAIN SCALE: Non-responsive LOCATION: Perfusion TECHNIQUE: CT perfusion of the brain was performed with calculation of input and output functions and generation of color coded blood flow, blood volume and mean transit time maps. Using automated exposure control and adjustment of the mA and/or kV according to patient size, radiation dose was kept as low as reas onably achievable to obtain optimal diagnostic quality images. DICOM format image data is available electronically for review and comparison. FINDINGS: There is symmetric perfusion to both cerebral hemispheres, cerebellar hemispheres and normal flow is identified to the brainstem. There are no findings of infarction or ischemic penumbra. CONCLUSION: Symmetric perfusion. Ricki Lane MD on April 24, 2017 at 16:48 Board Certified Radiologist. This report was verified electronically.
[2017-04-24 17:09] LABS: BILIRUBIN, URINE NEG (NEG); BLOOD, URINE NEG (NEG); GLUCOSE,URINE 1000 mg/dL (NEG); KETONE, URINE 10 mg/dL (NEG); MUCUS URINE FEW /lpf (OCC); NITRITE,URINE NEG (NEG); PH, URINE 6.5 (5.0-8.5); SQUAMOUS EPITHELIAL CELL URINE <1 /hpf (0-5); URINE COLOR YELLOW (YELLW/STRAW); URINE LEUKOCYTE ESTERASE NEG (NEG)
--- NOTE | 2017-04-24 17:59 | RADRPT ---
EXAM DATE/TIME: 04/24/2017 15:42 [facility] COMPARISON: No previous studies available for comparison. INDICATIONS : Stroke alert, unresponsive and left sided weakness. IV CONTRAST: 60 cc Omnipaque 350 (iohexol) IV ; Cumulative dose for multiple exams. RADIATION DOSE: 10.23 CTDIvol (mGy) ; Combined studies MEDICAL HISTORY : Non-responsive. SURGICAL HISTORY : Non-responsive. ENCOUNTER: Initial ACUITY: 1 day PAIN SCALE: Non-responsive LOCATION: cranial Elevated flow velocities and ICA/CCA ratios have been found to correlate with increased degrees of vessel stenosis, calculated as percentage of diameter relative to a normal segment of distal ICA/CCA. TECHNIQUE: Volumetric scanning was performed using a multirow detector CT scanner. The data was post processed with a variety of visualization algorithms including full-volume maximum intensity projection, multip lanar sliding thin-slab reformation, curved-planar reformation, and surface-rendering techniques. Us ing automated exposure control and adjustment of the mA and/or kV according to patient size, radiatio n dose was kept as low as reasonably achievable to obtain optimal diagnostic quality images. DICOM f ormat image data is available electronically for review and comparison. FINDINGS: AORTIC ARCH: There is a three-vessel origin of the great vessels from the aorta. No evidence of ostial narrowing. RIGHT CAROTID: The common carotid artery is intact. The carotid bulb has a normal configuration without ulceration o r narrowing. The internal carotid artery lumen is smooth without stenosis. The external carotid saida ry is intact. LEFT CAROTID: The common carotid artery is intact. The carotid bulb has a normal configuration without ulceration or narrowing. There is minimal calcific plaque. The internal carotid artery lumen is smooth without stenosis. The external carotid artery is intact. VERTEBRALS: The vertebral arteries have a symmetric diameter. No stenotic lesions are seen. CONCLUSION: Minimal calcific plaque in the left carotid bulb and internal carotid artery with no evidence of sten osis. Ricki Lane MD on April 24, 2017 at 17:54 Board Certified Radiologist. This report was verified electronically.
[2017-04-24] MEDS ORDERED: ACETAMINOPHEN 325 MG TAB PO PRN (18:15)
[2017-04-24] MEDS ORDERED: CHLORHEXIDINE GLUCONATE 2 % 1 PACK (2 CLOTHS) TOP PRN (18:15)
[2017-04-24] MEDS ORDERED: MISCELLANEOUS NURSING INFORMATION XX SCH (18:15)
[2017-04-24] MEDS ORDERED: DEXTROSE 50% IN WATER 50 ML VIAL(D50) IV PUSH PRN (18:15)
[2017-04-24] MEDS ORDERED: ONDANSETRON HCL 4 MG/2 ML VIAL IV PUSH PRN (18:15)
[2017-04-24] MEDS ORDERED: RESP: ALBUTEROL 2.5 MG/IPRATROPIUM 0.5 MG NEB (PRN) INH (18:15)
[2017-04-24] MEDS ORDERED: GLUCAGON 1 MG/ML VIAL OTHER PRN (18:15)
--- NOTE | 2017-04-24 18:30 | HHI.HP ---
HPI Service Critical Care Medicine Primary Care Physician No Primary Care Physician Admission Diagnosis STROKE. Diagnosis: (1) CVA (cerebral vascular accident) Diagnosis: Principal (2) Chronic congestive heart failure Diagnosis: Secondary (3) Chronic renal failure Diagnosis: Secondary (4) Adjustment disorder with depressed mood Diagnosis: Secondary (5) DM type 2 (diabetes mellitus, type 2) Diagnosis: Secondary (6) CAD S/P percutaneous coronary angioplasty Diagnosis: Secondary Chief Complaint: Slurred speech. Travel History International Travel<30 Days: No Contact w/Intl Traveler <30 Da: No Traveled to Known Affected Are: No History of Present Illness 42 y/o man developed aphasia and right arm and leg flaccidity. Head CT, CTA head and neck, brain flow study without obstruction (after tPA). Speech improved to almost normal after tPA. Some strength starting to return to right arm and leg (2/5). History complicated by DM, 2, with prior NH X 2, stents, chronic systolic heart failure, and AICD placement. He is now in DDR mode with a -sensing and v-pacing. Review of Systems ROS Mild SOB, chronic. No chest pain. Past Family Social History Allergies: Coded Allergies: hydromorphone (Verified Allergy, Severe, Hives, 03/27/17) phenobarbital (Unverified Allergy, Unknown, 03/27/17) MRI PRECAUTION (Verified Adverse Reaction, Severe, 04/24/17) [facility] PACEMAKER/DEFIB 04/24/17 COLL[place] Past Medical History Past Medical History Narrative Medical Past medical history reviewed. Atrial Fibrillation: Yes Cancer: No Cardiovascular Problems: Yes (PACEMAKER, STENT PLACEMENT) High Cholesterol: Yes Chest Pain: Yes Congestive Heart Failure: Yes Diabetes: Yes Patient Takes Glucophage: No Diminished Hearing: No Endocrine: Yes Gastrointestinal Disorders: No Genitourinary: No Hypertension: Yes Implanted Vascular Access Dvce: Yes Musculoskeletal: No Neurologic: No Psychiatric: No Reproductive: No Respiratory: No Immunizations Current: Yes Myocardial Infarction: Yes (X 1 IN 2009) Past Surgical History AICD: Yes ([id number]) Body Medical Devices: PACEMAKER Cardiac Surgery: Yes (AICD/PACER) Coronary Stent: Yes (X 1 ) Other Surgery: Yes (PACEMAKER, stent) Social History Alcohol Use: Yes (SOCIALLY) Tobacco Use: No Substance Use: No Allergies-Medications Allergies-Medications (Allergen,Severity, Reaction): Coded Allergies: hydromorphone (Verified Allergy, Severe, Hives, 03/27/17) phenobarbital (Unverified Allergy, Unknown, 03/27/17) Reported Meds & Prescriptions Reported Meds & Active Scripts Active Deltasone (Prednisone) 20 Mg Tab 20 Mg PO BID 5 Days Aspirin 81 (Aspirin) 81 Mg Tabdr 81 Mg PO DAILY Levemir Inj (Insulin Detemir) 1,000 unit/ 10 ML Vial 30 Units SQ HS Do not mix with any other Insulin. Lisinopril 5 Mg Tab 5 Mg PO DAILY Spironolactone 25 Mg Tab 25 Mg PO DAILY Plavix (Clopidogrel Bisulfate) 75 Mg Tab 75 Mg PO DAILY Carvedilol 6.25 Mg Tab 6.25 Mg PO BID Potassium Chloride ER (Potassium Chloride) 20 Meq Tab 20 Meq PO DAILY Lasix (Furosemide) 40 Mg Tab 40 Mg PO DAILY Atorvastatin (Atorvastatin Calcium) 20 Mg Tab 20 Mg PO HS Trazodone (Trazodone HCl) 50 Mg Tab 50 Mg PO HS Gabapentin 100 Mg Cap 100 Mg PO TID Physical Exam Vital Signs Vital Signs Date Time Temp Pulse Resp B/P (MAP) Pulse Ox O2 Delivery O2 Flow Rate FiO2 04/24/17 16:56 18 94 Nasal Cannula 2.00 04/24/17 16:44 100 18 141/95 (110) 98 Nasal Cannula 2.00 04/24/17 16:21 103 18 143/100 (114) 98 Room Air 04/24/17 15:55 104 18 147/97 (114) 98 Room Air 04/24/17 15:30 93 18 137/93 (108) 97 Room Air Physical Exam Gen: Alert. Head: Atraumatic. Neck: Supple, airway patent. Lungs: Clear, no wheezes or crackles. Mild tachypnea. Heart: RRR, 2/6 sys mur LSB -> apex. Abdomen: Benign, soft. No guarding. Extremities:Warm, well perfused. Generalized lower edema both legs/ankles. Neuro: 5/5 left leg and arm. 2/5 right arm, 3/5 right leg. Speech almost clear now. O X 3, conversant. Affect child-like. Laboratory Laboratory Tests Test 04/24/17 15:30 04/24/17 16:12 04/24/17 16:33 White Blood Count 9.1 Red Blood Count 7.07 Hemoglobin 15.2 Bedside Hemoglobin 16.3 Hematocrit 46.0 Bedside Hematocrit 48.0 Mean Corpuscular Volume 65.0 Mean Corpuscular Hemoglobin 21.5 Mean Corpuscular Hemoglobin Concent 33.1 Red Cell Distribution Width 20.4 Platelet Count 206 Mean Platelet Volume 8.9 Neutrophils (%) (Auto) 83.3 Lymphocytes (%) (Auto) 10.7 Monocytes (%) (Auto) 5.0 Eosinophils (%) (Auto) 0.5 Basophils (%) (Auto) 0.5 Neutrophils # (Auto) 7.6 Lymphocytes # (Auto) 1.0 Monocytes # (Auto) 0.5 Eosinophils # (Auto) 0.0 Basophils # (Auto) 0.0 CBC Comment DIFF FINAL Differential Comment Erythrocyte Sedimentation Rate 1 Prothrombin Time 11.5 Prothromb Time International Ratio 1.1 Activated Partial Thromboplast Time 23.9 Fibrinogen 286 Bedside Sodium 135 Bedside Potassium 5.6 Bedside Chloride 98 Bedside Blood Urea Nitrogen 15 Bedside Creatinine 1.2 Bedside Glucose 320 Total Creatine Kinase 146 Troponin I 0.02 Blood Gas Puncture Site RT RADIAL Blood Gas Patient Temperature 98.6 Blood Gas HCO3 26 Blood Gas Base Excess 2.1 Blood Gas Oxygen Saturation 91 Arterial Blood pH 7.47 Arterial Blood Partial Pressure CO2 36 Arterial Blood Partial Pressure O2 64 Arterial Blood Oxygen Content 18.5 Arterial Blood Carboxyhemoglobin 1.8 Arterial Blood Methemoglobin 0.5 Blood Gas Hemoglobin 14.5 Blood Gas Inspired Oxygen 21 Urine Color YELLOW Urine Turbidity CLEAR Urine pH 6.5 Urine Specific [place] GREATER THAN 1.050 Urine Protein 300 Urine Glucose (UA) 1000 Urine Ketones 10 Urine Occult Blood NEG Urine Nitrite NEG Urine Bilirubin NEG Urine Urobilinogen 4.0 Urine Leukocyte Esterase NEG Urine RBC 7 Urine WBC 1 Urine Squamous Epithelial Cells <1 Urine Mucus FEW Urine Opiates Screen NEG Urine Barbiturates Screen NEG Urine Amphetamines Screen NEG Urine Benzodiazepines Screen NEG Urine Cocaine Screen NEG Urine Cannabinoids Screen POS Result Diagram: 04/24/17 1530 Caprini VTE Risk Assessment Caprini VTE Risk Assessment: Mod/High Risk (score >= 2) Caprini Risk Assessment Model Point Value = 1 Point Value = 2 Point Value = 3 Point Value = 5 Age 41-60 Minor surgery BMI > 25 kg/m2 Swollen legs Varicose veins or History of unexplained or recurrent spontaneous Oral contraceptives or hormone replacement Sepsis (< 1 month) Serious lung disease, including pneumonia (< 1 month) Abnormal pulmonary function Acute myocardial infarction Congestive heart failure (< 1 month) History of inflammatory bowel disease Medical patient at bed rest Age 61-74 Arthroscopic surgery Major open surgery (> 45 min) Laparoscopic surgery (> 45 min) Malignancy Confined to bed (> 72 hours) Immobilizing plaster cast Central venous access Age >= 75 History of VTE Family history of VTE Factor V Leiden Prothrombin [id number] Lupus anticoagulant Anticardiolipin antibodies Elevated serum homocysteine Heparin-induced thrombocytopenia Other congenital or acquired thrombophilia Stroke (< 1 month) Elective arthroplasty Hip, pelvis, or leg fracture Acute spinal cord injury (< 1 month) Prophylaxis Regimen Total Risk Factor Score Risk Level Prophylaxis Regimen 0-1 Low Early ambulation 2 Moderate Order ONE of the following: *Sequential Compression Device (SCD) *Heparin 5000 units SQ BID 3-4 Higher Order ONE of the following medications: *Heparin 5000 units SQ TID *Enoxaparin/Lovenox 40 mg SQ daily (WT < 150 kg, CrCl > 30 mL/min) *Enoxaparin/Lovenox 30 mg SQ daily (WT < 150 kg, CrCl > 10-29 mL/min) *Enoxaparin/Lovenox 30 mg SQ BID (WT < 150 kg, CrCl > 30 mL/min) AND/OR *Sequential Compression Device (SCD) 5 or more Highest Order ONE of the following medications: *Heparin 5000 units SQ TID (Preferred with Epidurals) *Enoxaparin/Lovenox 40 mg SQ daily (WT < 150 kg, CrCl > 30 mL/min) *Enoxaparin/Lovenox 30 mg SQ daily (WT < 150 kg, CrCl > 10-29 mL/min) *Enoxaparin/Lovenox 30 mg SQ BID (WT < 150 kg, CrCl > 30 mL/min) AND *Sequential Compression Device (SCD) Assessment and Plan Problem List: (1) CVA (cerebral vascular accident) ICD Code: I63.9 - Cerebral infarction, unspecified (2) DM type 2 (diabetes mellitus, type 2) ICD Code: E11.9 - Type 2 diabetes mellitus without complications (3) Chronic congestive heart failure ICD Code: I50.9 - Heart failure, unspecified Status: Acute (4) Adjustment disorder with depressed mood ICD Code: F43.21 - Adjustment disorder with depressed mood (5) Chronic renal failure ICD Code: N18.9 - Chronic kidney disease, unspecified Status: Acute Assessment and Plan Plan: 1. tPA protocol initiated. 2. BP control per protocol, < 180/100 3. Continue levemir, add SSI novolog. 4. Liquid diet. ADA. 5. Hydralazine prn HTN. 6. May not tolerate beta angeline. 7. ECHO, cardiac. 8. Repeat head CT after 24 hours, earlier for deterioration. Overall impression: Stable respiratory and hemodynamic status after tPA for acute stroke. Guille Jovel MD Apr 24, 2017 18:30
--- NOTE | 2017-04-24 18:30 | MB ---
cc: KEVIN MARIE M.D. DATE OF CONSULTATION 04/24/2017 REASON FOR CONSULTATION Stroke alert. HISTORY OF THE PRESENT ILLNESS This is a 42-year-old right-handed man with the history of hypertension., insulin dependent diabetes, NV, pacemaker, defibrillator with a known ejection fraction of less than 20% who at approximately 01:00 p.m. today his sister came in, he was talked on the phone seemed to be doing fine. Then his speech got a little slurred. She thought that he was weak on the left arm. He subsequently came in for a stroke alert although that was about 2-1/2 hours after that started. SOCIAL HISTORY He is not a smoker. He used to smoke, occasionally he has a cigarette but not regularly. Not a drinker. No drugs. Lives with his sister. FAMILY HISTORY Negative for cancer, seizure, stroke. According to his sister, review of symptoms she denies any hypercholesterolemia. She is not sure if he has ever had atrial fibrillation or not. No renal, hepatic or pulmonary disease, thyroid disease lupus, ulcer, cancer, seizure or prior stroke. MEDICATIONS By an ER chart 3 days ago he was on: 1. Aspirin. 2. Plavix. 3. Prednisone 20 mg twice. 4. 81 of aspirin. 5. Insulin. 6. Lisinopril. 7. Spironolactone. 8. Carvedilol. 9. Potassium. 10. Lasix. 11. Atorvastatin. 12. Trazodone. 13. Gabapentin. PHYSICAL EXAMINATION GENERAL: On exam appears to be sinus rhythm with some possible bundle branch block. VITAL SIGNS: 130/80 currently to 140/103. 96. NECK: There were no carotid bruits. HEART: Regular rhythm. I do not detect a murmur. NEUROLOGIC: The pupils are equal. He is nonverbal. Eyes are closed. He does not react to threat well. Appears to be moving the right arm a bit better than the left at this time. Neither of his legs move well. The toes are downgoing bilaterally. DTRs absent. He will not follow any verbal commands. LABORATORY DATA CBC is normal. Sed rate 1.0 in the recent past. His coags were normal two to three days ago. Basic metabolic profile was normal as were LFTs and troponin. BNP was 493. Albumin 2.9. IMAGING Chest x-ray done several days ago was noted as normal. CT scan of the brain here without contrast negative. His i-STAT today, his potassium 5.6 otherwise normal. Glucose was 320. Hematocrit, hemoglobin all normal. Creatinine 1.2. IMPRESSION Sounds like by history a stroke. We will go ahead and give him t-PA. We are doing a CTA and a CT perfusion also. We will be following him with you in the hospital. I would say at this time although it was reported it had left arm weakness, it appears his right arm is a little bit weaker at this time. I did talk to his sister. She said there was no seizure at onset. MD KELY Palomares/DARRELL /3:47 PM /6:08 PM
[2017-04-24 18:49] LABS: CHOLESTEROL/ HDL RATIO 4.3 RATIO; FREE T4 1.1 NG/DL (0.76-1.46)
[2017-04-24] MEDS ORDERED: IOHEXOL 350 MG/ML 10 ML VIAL (for RAD DIAG) IVCONTRAST ONE (19:56)
[2017-04-24] MEDS: CHLORHEXIDINE GLUCONATE 2 % 1 PACK (2 CLOTHS) TOP SCH (20:36)
[2017-04-24] MEDS: INSULIN DETEMIR 100 UNITS/ML VIAL SQ SCH (21:00)
[2017-04-24] MEDS: CARVEDILOL 6.25 MG TAB PO SCH ×2 (21:00→22:12)
[2017-04-24] MEDS: ATORVASTATIN 20 MG TAB PO SCH ×2 (21:00→22:12)
[2017-04-24] MEDS: INSULIN ASPART SUPPLEMENTAL SCALE SQ SCH (21:00)
[2017-04-24] MEDS: FAMOTIDINE 20 MG/2 ML VIAL IV PUSH SCH (22:12)
[2017-04-24 22:25] LABS: ALKALINE PHOSPHATASE 199 U/L (45-117); ALT (GPT) 37 U/L (12-78); AST (GOT) 74 U/L (15-37); BICARBONATE 21.7 MEQ/L (21.0-32.0); BLOOD UREA NITROGEN 12 MG/DL (7-18); CALCIUM 8.5 MG/DL (8.5-10.1); CHLORIDE 101 MEQ/L (98-107); CREATININE 1.41 MG/DL (0.60-1.30); GLOMERULAR FILTRATION RATE 67 ML/MIN (>89); GLUCOSE,RANDOM 313 MG/DL (74-106); SODIUM (NA) 135 MEQ/L (136-145); TOTAL BILIRUBIN ADULT 1.4 MG/DL (0.2-1.0); TOTAL PROTEIN 6.8 GM/DL (6.4-8.2)
[2017-04-25] VITALS (12 sets, daily range): BP systolic 101–133; BP diastolic 65–97; PULSE 81–100; RESP 16–26; TEMP 97.7–98.9; O2SAT 97–100
[2017-04-25] MEDS: SODIUM CHLOR 0.9% 1000 ML INJ 1,000 ML IV SCH ×2 (05:14→18:27)
--- NOTE | 2017-04-25 07:35 | HHI.PR ---
Subjective Remarks paced bp ok Objective Vital Signs Date Time Temp Pulse Resp B/P (MAP) Pulse Ox O2 Delivery O2 Flow Rate FiO2 04/25/17 06:00 84 04/25/17 04:00 98 04/25/17 04:00 98.9 98 20 101/65 (77) 97 04/25/17 02:00 94 04/25/17 00:00 97.9 100 26 129/97 (108) 99 04/25/17 00:00 100 04/24/17 22:00 88 04/24/17 20:50 04/24/17 20:00 88 04/24/17 20:00 98 Nasal Cannula 2.00 04/24/17 20:00 97.7 88 18 135/96 (109) 98 04/24/17 16:56 18 94 Nasal Cannula 2.00 04/24/17 16:44 100 18 141/95 (110) 98 Nasal Cannula 2.00 04/24/17 16:21 103 18 143/100 (114) 98 Room Air 04/24/17 15:55 104 18 147/97 (114) 98 Room Air 04/24/17 15:30 93 18 137/93 (108) 97 Room Air I/O 04/24/17 04/24/17 04/24/17 04/25/17 04/25/17 04/25/17 07:00 15:00 23:00 07:00 15:00 23:00 Intake Total 936 ml Output Total 425 ml Balance 511 ml Intake Oral 5 ml IV Total 931 ml Output Urine Total 425 ml # Bowel Movements 1 Result Diagram: 04/24/17 1530 04/24/17 1530 Objective Remarks awake alert oriented vff face sum 5/5 t/o Assessment and Plan Assessment and Plan imp cannot have mri due to pacer all better from what appeared to be tia ctax2 and ct perfusion nl ct neg sp tpa hx low ef less than 20% ldl nl trop neg considering above i would recommend anticoagulation and asa for cad can we dc plavix? maybe cards needs to get involved? will defer to med team with recent tpa i would prefer sq heparin full dose and coumadin over eliquis and could change to eliquis in one month if cards thinks that would be ok check eeg Иван Weathers MD Apr 25, 2017 07:34
[2017-04-25] MEDS: INSULIN ASPART SUPPLEMENTAL SCALE SQ SCH ×4 (08:00→21:00)
[2017-04-25] MEDS: LISINOPRIL 5 MG TAB PO SCH (09:00)
[2017-04-25] MEDS: CARVEDILOL 6.25 MG TAB PO SCH ×2 (09:00→21:00)
[2017-04-25] MEDS: SPIRONOLACTONE 25 MG TAB PO SCH (09:00)
[2017-04-25] MEDS: POTASSIUM CHLORIDE 20 MEQ CONTROLLED RELEASE TAB PO SCH (09:00)
[2017-04-25] MEDS: FAMOTIDINE 20 MG/2 ML VIAL IV PUSH SCH ×2 (10:39→22:13)
[2017-04-25] MEDS: GABAPENTIN 100 MG CAP PO SCH ×3 (10:39→18:26)
[2017-04-25] MEDS: FUROSEMIDE 40 MG TAB PO SCH (10:39)
--- NOTE | 2017-04-25 10:42 | HHI.CCPN ---
Subjective Remarks/Hospital Course 42 y/o man developed aphasia and right arm and leg flaccidity. Head CT, CTA head and neck, brain flow study without obstruction (after tPA). Speech improved to almost normal after tPA. Some strength starting to return to right arm and leg (2/5). History complicated by DM, 2, with prior [place] X 2, stents, chronic systolic heart failure, and AICD placement. He is now in DDR mode with a -sensing and v-pacing. 04/25 patient remains on bed. Normal speech. Bilateral upper extremity about 4 out of 5 power Objective Vital Signs Date Time Temp Pulse Resp B/P (MAP) Pulse Ox O2 Delivery O2 Flow Rate FiO2 04/25/17 07:52 99 Nasal Cannula 2.00 04/25/17 06:00 84 04/25/17 04:00 98.9 20 101/65 (77) Intake and Output 04/25/17 04/25/17 04/26/17 08:00 16:00 00:00 Intake Total 936 ml Output Total 425 ml Balance 511 ml Result Diagram: 04/24/17 1530 04/24/17 1530 Other Results Laboratory Tests Test 04/24/17 16:12 Blood Gas Puncture Site RT RADIAL Blood Gas Patient Temperature 98.6 Blood Gas HCO3 26 mmol/L (22-26) Blood Gas Base Excess 2.1 mmol/L (-2-2) Blood Gas Oxygen Saturation 91 % (90-100) Arterial Blood pH 7.47 (7.380-7.420) Arterial Blood Partial Pressure CO2 36 mmHg (38-42) Arterial Blood Partial Pressure O2 64 mmHG (61-120) Arterial Blood Oxygen Content 18.5 Vol % (12.0-20.0) Arterial Blood Carboxyhemoglobin 1.8 % (0-4) Arterial Blood Methemoglobin 0.5 % (0-2) Blood Gas Hemoglobin 14.5 G/DL (12.0-16.0) Blood Gas Inspired Oxygen 21 % Objective Remarks Gen: Alert. Head: Atraumatic. Neck: Supple, airway patent. Lungs: Clear, no wheezes or crackles. Mild tachypnea. Heart: RRR, 2/6 sys mur LSB -> apex. Abdomen: Benign, soft. No guarding. Extremities:Warm, well perfused. Generalized lower edema both legs/ankles. Neuro:4/5 power bilateral LE, 3/5 right leg. Speech normal. O X 3, conversant. A/P Problem List: (1) CVA (cerebral vascular accident) ICD Code: I63.9 - Cerebral infarction, unspecified (2) DM type 2 (diabetes mellitus, type 2) ICD Code: E11.9 - Type 2 diabetes mellitus without complications (3) Chronic congestive heart failure ICD Code: I50.9 - Heart failure, unspecified Status: Acute (4) Adjustment disorder with depressed mood ICD Code: F43.21 - Adjustment disorder with depressed mood (5) Chronic renal failure ICD Code: N18.9 - Chronic kidney disease, unspecified Status: Acute Assessment and Plan Plan: 1. s/p tPA per protocol 2. BP control per protocol, < 180/100 3. Continue levemir, add SSI novolog. 4. Liquid diet. ADA after bedside swallow 5. Hydralazine prn HTN. 6. May not tolerate beta angeline at this time 7. ECHO, cardiac. 8. Repeat head CT after 24 hours, earlier for deterioration. 9. Aspirin and Plavix on hold status post TPA 10. Dr. Weathers recommending anticoagulation with Coumadin, and then NOAC and possibly discontinuing Plavix 11. Will get cardiology input regarding anticoagulation Overall impression: Stable respiratory and hemodynamic status after tPA for acute stroke. Transfer to [facility] after repeat Ct head. Consult [facility] to assume care in am Artur Bhat MD Apr 25, 2017 10:42
--- NOTE | 2017-04-25 15:08 | MG ---
cc: FITZ MILLIGAN MD Sex: M DATE OF STUDY: 04/25/2017 [id number] DATE OF : 1975 INTRODUCTION: 42-year-old with history of mental status changes, weakness. DESCRIPTION: 79 Hz posterior rhythm 20-40 microvolts low amplitude beta theta in the frontal channels, good anterior-posterior gradient. Attenuation slowing with bursts of 2-3 Hz delta activity with transition into drowsy state followed by stage I sleep and stage II sleep characterized by K complex and spindles. Reduced driving with photic stimulation. Single lead EKG showing sinus rhythm. INTERPRETATION Normal awake sleep EEG. Clinical correlation. Fitz Milligan MD MG/RADHA /2:36 PM /2:54 PM
--- NOTE | 2017-04-25 17:45 | RADRPT ---
EXAM DATE/TIME: 04/25/2017 17:00 [place] COMPARISON: CT BRAIN W/O CONTRAST, April 24, 2017, 15:42. CT BRAIN CEREBRAL PERF ANALYSIS W/3D, April 24 18, 15:42. INDICATIONS : Stroke, 24hour post TPA, left sided weakness. RADIATION DOSE: 36.73 CTDIvol (mGy) MEDICAL HISTORY : None SURGICAL HISTORY : None. ENCOUNTER: Subsequent ACUITY: 2 days PAIN SCALE: 0/10 LOCATION: cranial TECHNIQUE: Multiple contiguous axial images were obtained of the head. Using automated exposure control and adj ustment of the mA and/or kV according to patient size, radiation dose was kept as low as reasonably a chievable to obtain optimal diagnostic quality images. DICOM format image data is available electro nically for review and comparison. FINDINGS: CEREBRUM: The ventricles are normal for age. No evidence of midline shift, mass lesion, hemorrhage or acute in farction. No extra-axial fluid collections are seen. POSTERIOR FOSSA: The cerebellum and brainstem are intact. The 4th ventricle is midline. The cerebellopontine angle i s unremarkable. EXTRACRANIAL: The visualized portion of the orbits is intact. SKULL: The calvaria is intact. No evidence of skull fracture. CONCLUSION: Normal examination. No significant change has occurred. Dank Humphreys MD on April 25, 2017 at 17:41 Board Certified Radiologist. This report was verified electronically.
[2017-04-25] MEDS: CHLORHEXIDINE GLUCONATE 2 % 1 PACK (2 CLOTHS) TOP SCH (20:13)
[2017-04-25] MEDS: INSULIN DETEMIR 100 UNITS/ML VIAL SQ SCH (21:00)
[2017-04-25] MEDS: ATORVASTATIN 20 MG TAB PO SCH (22:13)
[2017-04-26] VITALS (8 sets, daily range): BP systolic 112–134; BP diastolic 75–97; PULSE 77–100; RESP 14–24; TEMP 97–98.5; O2SAT 95–98
--- NOTE | 2017-04-26 00:26 | EKG ---
Date Performed: 04/25/2017 Time Performed: 07:56:24 PTAGE: 42 years EKG: --- Warning: Data quality may affect interpretation --- Sinus rhythm . Possible left atrial abnormality Left axis deviation RBBB with left anterior fascicular block Infer ior infarct - age undetermined Possible septal infarct - age undetermined Abnormal ECG PREVIOUS TRACING : 04/25/2017 01.05 Since the prior tracing, there has been no significant davey DOCTOR: Ezra Lane Interpretating Date/Time 04/26/2017 00:25:15
--- NOTE | 2017-04-26 00:38 | EKG ---
Date Performed: 04/25/2017 Time Performed: 01:05:56 PTAGE: 42 years EKG: Sinus rhythm . Possible left atrial abnormality Left axis deviation RBBB with left anterior fascicular block Infer ior infarct - age undetermined Possible septal infarct - age undetermined Abnormal ECG PREVIOUS TRACING : 04/24/2017 15.36 Since the prior tracing, there has been no significant davey DOCTOR: Ezra Lane Interpretating Date/Time 04/26/2017 00:37:07
--- NOTE | 2017-04-26 01:02 | EKG ---
Date Performed: 04/24/2017 Time Performed: 15:36:56 PTAGE: 42 years EKG: ELECTRONIC VENTRICULAR PACEMAKER ABNORMAL RHYTHM ECG PREVIOUS TRACING : 04/22/2017 01.20 Since the prior tracing, there has been no significant davey DOCTOR: Ezra Lane Interpretating Date/Time 04/26/2017 01:00:52
[2017-04-26] MEDS ORDERED: SODIUM CHLOR 0.45% 500 ML INJ 500 ML IV ONE (07:00)
--- NOTE | 2017-04-26 07:45 | HHI.PR ---
Subjective Remarks sr/paced bp ok Objective Vital Signs Date Time Temp Pulse Resp B/P (MAP) Pulse Ox O2 Delivery O2 Flow Rate FiO2 04/26/17 04:00 98.2 86 24 128/93 (105) 95 04/26/17 04:00 86 04/26/17 00:00 86 04/26/17 00:00 98.2 86 14 134/96 (109) 96 04/25/17 20:00 97.7 84 22 133/95 (108) 100 04/25/17 20:00 84 04/25/17 19:55 21 04/25/17 18:00 81 04/25/17 16:00 97.8 84 20 123/92 (102) 100 04/25/17 16:00 86 04/25/17 14:00 90 04/25/17 12:00 98.1 83 16 121/90 (100) 99 04/25/17 12:00 83 04/25/17 10:00 82 04/25/17 08:00 98.4 92 17 121/85 (97) 98 04/25/17 08:00 92 04/25/17 07:52 99 Nasal Cannula 2.00 I/O 04/25/17 04/25/17 04/25/17 04/26/17 04/26/17 04/26/17 07:00 15:00 23:00 07:00 15:00 23:00 Intake Total 936 ml 1720 ml 600 ml Output Total 425 ml 1100 ml 650 ml Balance 511 ml 620 ml -50 ml Intake Oral 5 ml 720 ml 600 ml IV Total 931 ml 1000 ml Output Urine Total 425 ml 1100 ml 650 ml # Bowel Movements 1 0 0 Result Diagram: 04/24/17 1530 04/24/17 1530 Objective Remarks awake alert oriented vff face sum 5/5 t/o x lle 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 maybe cards needs to get involved? will defer to med team with recent tpa i would prefer sq heparin full dose and coumadin over eliquis and could change to eliquis in one month if cards thinks that would be ok check eeg 04/26/17 lle weak? vs psych? eeg neg will have PT ambulate and dw them he should be anticoagulated now and i ask med team to do this please see above Иван Weathers MD Apr 26, 2017 07:45
[2017-04-26] MEDS: INSULIN ASPART SUPPLEMENTAL SCALE SQ SCH ×4 (08:00→20:54)
[2017-04-26] MEDS: SODIUM CHLOR 0.9% 1000 ML INJ 1,000 ML IV SCH (08:18)
[2017-04-26] MEDS: POTASSIUM CHLORIDE 20 MEQ CONTROLLED RELEASE TAB PO SCH (09:00)
[2017-04-26] MEDS: SPIRONOLACTONE 25 MG TAB PO SCH (09:16)
[2017-04-26] MEDS: FUROSEMIDE 40 MG TAB PO SCH (09:17)
[2017-04-26] MEDS: GABAPENTIN 100 MG CAP PO SCH ×3 (09:17→18:24)
[2017-04-26] MEDS: FAMOTIDINE 20 MG/2 ML VIAL IV PUSH SCH ×2 (09:18→20:54)
[2017-04-26] MEDS: LISINOPRIL 5 MG TAB PO SCH (09:18)
--- NOTE | 2017-04-26 09:37 | MB ---
cc: SCOTT GLASS M.D. DATE OF CONSULTATION 04/26/2017 REASON FOR CONSULTATION Recommendations regarding anticoagulation therapy and potentially stopping Plavix that patient has been taking chronically. HISTORY OF PRESENT ILLNESS The patient is a fairly difficult historian. He is a 42-year-old -Turkmen male with a history of diabetes, severe dilated cardiomyopathy with ejection fraction of less than 20%, history of AICD implant, hypertension, hyperlipidemia, coronary artery disease, poorly documented history of paroxysmal atrial fibrillation, who presented to the hospital with acute left-sided weakness. He was given thrombolytic therapy but apparently overall there has been no definitive evidence for acute CVA. The patient is nonetheless being considered for anticoagulation therapy with Coumadin. The patient states he was on Coumadin several years ago and it caused hair loss. Since coming into the hospital he has had intermittent episodes of substernal chest pressure "like an elephant sitting on my chest." He is vague as to the duration of the chest discomforts, possibly all day long. In the last 2-3 months he has had somewhat increased dyspnea from baseline. He states he cannot walk leisurely one block without moderate shortness of breath. He denies paroxysmal nocturnal dyspnea, orthopnea, syncope, near-syncope. Occasionally he experiences orthostatic lightheadedness. Since [place] he has had mild constant pedal edema. He reports compliance with medications. His last episode of chest discomfort was this morning, again described as "pressure." PAST MEDICAL HISTORY 1. Diabetes. 2. [employer] AICD implant 2009 on the left side. Apparently this system became infected and a new system placed on the right. From what I can gather the right-sided system malfunctioned causing multiple AICD shocks and the patient declined placement of a new AICD for seven years. He states he had his most recent AICD placed in [place] last year and has not had any shocks from this device. 3. Severe dilated cardiomyopathy with ejection fraction less than 20% by echo 02/07/2017. 4. Hypertension. 5. Hyperlipidemia. 6. Poorly documented history of paroxysmal atrial fibrillation. 7. Coronary artery disease status post percutaneous coronary intervention 2009, possibly in [place], [place]. MEDICATIONS His current cardiac medications: 1. Furosemide 40 mg p.o. q. day. 2. Lisinopril 5 mg p.o. q. day. 3. Potassium chloride 20 mEq p.o. q. day. 4. Spironolactone 25 mg p.o. q. day. 5. Atorvastatin 20 mg p.o. q.h.s. 6. Carvedilol 6.25 mg p.o. b.i.d. ALLERGIES 1. HYDROMORPHONE. 2. PHENOBARBITAL. FAMILY HISTORY There is an extensive family history of coronary artery disease, most recently his bother passing away from myocardial infarction at age 48. SOCIAL HISTORY The patient quit smoking in 2009. He denies alcohol abuse. REVIEW OF SYSTEMS As in the history of present illness, otherwise negative or noncontributory. He currently denies headache, abdominal pain, melena, dyspepsia, bright red blood per rectum, fevers. He has had an improving nonproductive cough recently. PHYSICAL EXAMINATION VITAL SIGNS: Blood pressure 128/93 with a pulse of 86, respirations 24. GENERAL: In general he is a well-developed, well-nourished -Turkmen male in no acute distress. HEENT/NECK: Jugular venous pressure is normal. Carotid pulses are 2+ bilaterally and without bruits. CHEST: Examination of the chest reveals clear lung urban. CARDIAC: On cardiac examination he has a regular rhythm and rate without S3, S4, or murmur. ABDOMEN: On abdominal examination he has a soft, nontender abdomen. Bowel sounds are present. There is no definite hepatosplenomegaly. EXTREMITIES: Examination of extremities reveals no clubbing or cyanosis. There is 1+ pretibial edema bilaterally. EKG EKG from 04/25/2017 at 1:05 a.m. shows sinus rhythm, ventricular pacing, right bundle branch block, left anterior fascicular block. IMAGING Chest x-ray from 04/21/2017 shows no acute disease. LABORATORY Laboratory data includes WBC 9.1, hemoglobin 15.2, platelets 206, potassium 5.6, BUN 12, creatinine 1.41, total cholesterol 142, LDL 94, HDL 33, triglycerides 77. IMPRESSION A 42-year-old -Turkmen male with a history of multiple medical problems including severe dilated cardiomyopathy, ejection fraction less than 20%, history of AICD implant, diabetes, coronary artery disease, poorly documented history of paroxysmal atrial fibrillation, admitted with questionable acute CVA treated with thrombolytic therapy. I have been asked to see the patient regarding potential anticoagulation therapy and stopping the Plavix he has been taking for the last several years. At this point there is no cardiac indication to continue Plavix. If indeed he has a history of paroxysmal atrial fibrillation, I would agree with the need for anticoagulation therapy given his high thromboembolic risk. The patient states he would decline Coumadin as he apparently had problems with hair loss with this drug several years ago. In light of his history of coronary artery disease would also recommend daily baby aspirin. With respect to his history of coronary artery disease, he has had ongoing overall atypical chest discomforts here in the hospital, including today. EKG shows no definite acute ST-segment changes. Cardiac enzymes have been negative for myocardial infarction. His pedal edema may be more due to chronic deep venous insufficiency. There is no other definite evidence for acute congestive heart failure. He would potentially be a candidate for heart transplantation if he were to demonstrate better compliance with follow-up. RECOMMENDATIONS 1. As the patient refuses to take Coumadin, recommend using Eliquis 5 mg p.o. b.i.d. 2. In light of his history of coronary artery disease, recommend daily baby aspirin as well. 3. Optimize his heart failure regimen; increase his carvedilol dosing. 4. As his lipid profile is suboptimal recommend increasing his statin dose. 5. Will have the [employer] sales donor recruitment representative interrogate his AICD. Will check to see if this device is MRI compatible. Will also check to see if he has had any atrial fibrillation. 6. Check a Lexiscan nuclear stress test today to assess his ongoing chest discomforts. MD SHIN Colón/JANUSZ /8:55 AM /9:18 AM ELIAS
--- NOTE | 2017-04-26 12:20 | HHI.PR ---
Subjective Remarks Follow-up CVA 04/26/17-patient seen and examined, complains of left sided weakness as well as chest pain Objective Vitals Vital Signs Date Time Temp Pulse Resp B/P (MAP) Pulse Ox O2 Delivery O2 Flow Rate FiO2 04/26/17 08:58 97 21 04/26/17 04:00 98.2 86 24 128/93 (105) 95 04/26/17 04:00 86 04/26/17 00:00 86 04/26/17 00:00 98.2 86 14 134/96 (109) 96 04/25/17 20:00 97.7 84 22 133/95 (108) 100 04/25/17 20:00 84 04/25/17 19:55 21 04/25/17 18:00 81 04/25/17 16:00 97.8 84 20 123/92 (102) 100 04/25/17 16:00 86 04/25/17 14:00 90 I/O 04/25/17 04/25/17 04/25/17 04/26/17 04/26/17 04/26/17 07:00 15:00 23:00 07:00 15:00 23:00 Intake Total 936 ml 1720 ml 600 ml 200 ml Output Total 425 ml 1100 ml 650 ml Balance 511 ml 620 ml -50 ml 200 ml Intake Oral 5 ml 720 ml 600 ml 200 ml IV Total 931 ml 1000 ml Output Urine Total 425 ml 1100 ml 650 ml # Bowel Movements 1 0 0 Result Diagram: 04/24/17 1530 04/24/17 1530 Imaging Last Impressions Head CT 04/25/17 0000 Signed Impressions: Service Date/Time: Tuesday, April 25, 2017 17:00 - CONCLUSION: Normal examination. No significant change has occurred. Dank Humphreys MD Head/Neck CTA with Brain Perfusion 04/24/17 1635 Signed Impressions: Service Date/Time: Monday, April 24, 2017 15:42 - CONCLUSION: Symmetric perfusion. Ricki Lane MD Neck CTA 04/24/17 1534 Signed Impressions: Service Date/Time: Monday, April 24, 2017 15:42 - CONCLUSION: Minimal calcific plaque in the left carotid bulb and internal carotid artery with no evidence of stenosis. Ricki Lane MD Head CTA 04/24/17 1534 Signed Impressions: Service Date/Time: Monday, April 24, 2017 15:42 - CONCLUSION: Scattered atherosclerotic changes. No large vessel stenosis or aneurysm. Toro Khoury MD Objective Remarks GENERAL: NAD SKIN: Warm and dry. HEAD: Normocephalic. EYES: No scleral icterus. No injection or drainage. NECK: Supple, trachea midline. No JVD or lymphadenopathy. CARDIOVASCULAR: Regular rate and rhythm without murmurs, gallops, or rubs. RESPIRATORY: Breath sounds equal bilaterally. No accessory muscle use. GASTROINTESTINAL: Abdomen soft, non-tender, nondistended. MUSCULOSKELETAL: No cyanosis, or edema. Left sided weakness BACK: Nontender without obvious deformity. No CVA tenderness. A/P Problem List: (1) CVA (cerebral vascular accident) ICD Code: I63.9 - Cerebral infarction, unspecified (2) Chronic congestive heart failure ICD Code: I50.9 - Heart failure, unspecified Status: Acute (3) Chronic renal failure ICD Code: N18.9 - Chronic kidney disease, unspecified Status: Acute (4) Adjustment disorder with depressed mood ICD Code: F43.21 - Adjustment disorder with depressed mood (5) DM type 2 (diabetes mellitus, type 2) ICD Code: E11.9 - Type 2 diabetes mellitus without complications (6) CAD S/P percutaneous coronary angioplasty ICD Code: I25.10 - Atherosclerotic heart disease of [place] coronary artery without angina pectoris; Z98.61 - Coronary angioplasty status Assessment and Plan 42 yrs old man with Acute CVA s/p TPA therapy Plavix discontinued and patient now on Eliquis 5mg BID and ASA 81mg daily Continue with Statin Awaiting for [employer] member services representative to interrogate his AICD to see if this device is MRI compatible PT to treat and eval Appreciate input from Neurology Atypical chest pain Nuclear stress test pending Appreciate input from cardiology Severe dilated Cardiomyopathy Continue lisinopril 5 mg daily, Coreg 12.5 mg twice a day, aspirin, statin History of chronic systolic CHF Currently on Lasix,BRIANNA-I, Aldactone, BB Coronary artery disease Continue with aspirin, beta angeline, statin Diabetes type 2 Currently on Levemir and insulin sliding scale Hyperkalemia Recheck K and treat accordingly DVT prophylaxis Toro Long MD Apr 26, 2017 12:20
[2017-04-26] MEDS: ATORVASTATIN 80 MG TAB PO SCH (20:54)
[2017-04-26] MEDS: INSULIN DETEMIR 100 UNITS/ML VIAL SQ SCH (20:54)
[2017-04-26] MEDS: CARVEDILOL 12.5 MG TAB PO SCH (20:54)
[2017-04-26] MEDS: CHLORHEXIDINE GLUCONATE 2 % 1 PACK (2 CLOTHS) TOP SCH (20:55)
[2017-04-26] MEDS: APIXABAN 5 MG TABLET PO SCH (21:16)
[2017-04-26 21:45] LABS: BICARBONATE 24.1 MEQ/L (21.0-32.0); CALCIUM 8.5 MG/DL (8.5-10.1); CREATININE 1.15 MG/DL (0.60-1.30)
[2017-04-27] VITALS (8 sets, daily range): BP systolic 91–111; BP diastolic 64–83; PULSE 61–84; RESP 16–20; TEMP 97.3–98.5; O2SAT 97–100
--- NOTE | 2017-04-27 07:23 | PD.CARD.PN ---
Subjective Subjective Remarks Denies dyspnea, dizziness, PND, orthopnea. Continued fairly constant substernal chest pressure. Objective Medications Item Value Date Time Aspirin 81 mg 04/27/17 0900 (Ecotrin Ec) DAILY/PO Atorvastatin 80 mg 04/26/172099 Calcium HS/PO 04/26/172053 (Lipitor) Carvedilol 12.5 mg 04/26/17 2100 (Coreg) BID/PO 04/26/172053 Apixaban 5 mg 04/26/172099 (Eliquis) BID/PO 04/26/172115 Furosemide 40 mg 04/25/17 0900 (Lasix) DAILY/PO 04/26/1717 Lisinopril 5 mg 04/25/1700 (Prinivil) DAILY/PO 04/26/17917 Potassium Chloride 20 meq 04/25/17 0900 (KCl) DAILY/PO Spironolactone 25 mg 04/25/17 09 (Aldactone) DAILY/PO 04/26/17 0916 Current Medications Medications (Trade) Dose Ordered Sig/Stacy Route Start Time Stop Time Status Last Admin (Lasix) 40 mg DAILY PO 04/25/17 09:00 04/26/17 09:17 (Neurontin) 100 mg TID PO 04/25/17 09:00 04/26/17 18:24 (Levemir Inj) 30 units HS SQ 04/24/17 21:00 04/26/17 20:54 (Prinivil) 5 mg DAILY PO 04/25/17 09:00 04/26/17 09:18 (KCl) 20 meq DAILY PO 04/25/17 09:00 (Aldactone) 25 mg DAILY PO 04/25/17 09:00 04/26/17 09:16 (D50w (Vial) Inj) 50 ml UNSCH PRN IV PUSH 04/24/17 18:15 (Glucagon Inj) 1 mg UNSCH PRN OTHER 04/24/17 18:15 (NovoLOG SUPPLEMENTAL SCALE) 1 ACHS SLIDING SCALE SQ 04/24/17 21:00 04/26/17 18:24 (Tylenol) 650 mg Q6H PRN PO 04/24/17 18:15 04/26/17 21:17 (Pepcid Inj) 20 mg Q12HR IV PUSH 04/24/17 21:00 04/26/17 20:54 (Zofran Inj) 4 mg Q6H PRN IV PUSH 04/24/17 18:15 04/25/17 00:03 (Duoneb Neb) 1 ampule Q4HR NEB PRN INH 04/24/17 18:15 Miscellaneous Information 1 Q361D XX 04/24/17 18:15 (Chlorhexidine 2% Cloth) 3 pack Taper DAILY@04 TOP 04/25/17 04:00 04/21/18 03:59 (Chlorhexidine 2% Cloth) 3 pack UNSCH PRN TOP 04/24/17 18:15 (Lipitor) 80 mg HS PO 04/26/17 21:00 04/26/17 20:54 (Coreg) 12.5 mg BID PO 04/26/17 21:00 04/26/17 20:54 (Ecotrin Ec) 81 mg DAILY PO 04/27/17 09:00 (Eliquis) 5 mg BID PO 04/26/17 21:00 04/26/17 21:16 Vital Signs / I&O Vital Signs Date Time Temp Pulse Resp B/P (MAP) Pulse Ox O2 Delivery O2 Flow Rate FiO2 04/27/17 04:00 64 16 91/64 (73) 98 04/27/17 04:00 64 04/27/17 00:00 84 04/27/17 00:00 98.2 84 20 98/67 (77) 98 04/26/17 20:00 98.3 82 22 123/90 (101) 97 04/26/17 20:00 82 04/26/17 16:00 98.5 77 17 112/75 (87) 98 04/26/17 12:00 96 04/26/17 12:00 97.7 96 17 127/91 (103) 96 04/26/17 10:00 81 04/26/17 08:58 97 21 04/26/17 08:00 97.0 100 21 132/97 (109) 97 04/26/17 08:00 100 I/O 04/26/17 04/26/17 04/26/17 04/27/17 04/27/17 04/27/17 07:00 15:00 23:00 07:00 15:00 23:00 Intake Total 600 ml 374 ml 120 ml 360 ml Output Total 650 ml 400 ml 1100 ml 150 ml Balance -50 ml -26 ml -980 ml 210 ml Intake Oral 600 ml 200 ml 120 ml 360 ml IV Total 174 ml Output Urine Total 650 ml 400 ml 1100 ml 150 ml # Voids 1 # Bowel Movements 0 1 0 Physical Exam GENERAL: Well developed, well nourished. No acute distress. HEENT: Jugular venous pressure is normal. CHEST: Lungs clear to anteriorly. CARDIAC: Regular rate and rhythm without S3, S4, or murmur. ABDOMEN: Soft, nontender, no hepatosplenomegaly. Bowel sounds present. EXTREMITIES: No clubbing, cyanosis. Trace pretibial edema. Laboratory Laboratory Tests Test 04/26/17 20:53 Blood Urea Nitrogen 12 MG/DL Creatinine 1.15 MG/DL Random Glucose 138 MG/DL Calcium Level 8.5 MG/DL Sodium Level 138 MEQ/L Potassium Level 3.5 MEQ/L Chloride Level 105 MEQ/L Carbon Dioxide Level 24.1 MEQ/L Anion Gap 9 MEQ/L Estimat Glomerular Filtration Rate 85 ML/MIN Assessment and Plan Problem List: (1) Cardiomyopathy ICD Codes: I42.9 - Cardiomyopathy, unspecified Status: Chronic Plan: Stable. Compensated. Suspect his cardiomyopathy is primarily non- ischemic in etiology. Recommend continue his comprehensive medical regimen. Consider heart transplantation referral in the future if can lose weight and demonstrate compliance with medical f/u. If nuclear stress test negative today , OK for discharge from my standpoint. (2) CAD (coronary artery disease) ICD Codes: I25.10 - Atherosclerotic heart disease of [place] coronary artery without angina pectoris Status: Chronic Plan: Continued overall atypical CP's past few days. Await nuclear stress test results. If negative for ischemia, OK for discharge from my standpoint. (3) Paroxysmal atrial fibrillation ICD Codes: I48.0 - Paroxysmal atrial fibrillation Status: Chronic Plan: Not well documented history of atrial fib. No atrial fib demonstrated in past year based on AICD interrogation. Nonetheless recommend continue anticoagulation therapy. He declines Coumadin. Continue apixaban. (4) History of implantable cardioverter-defibrillator (ICD) placement ICD Codes: Z95.810 - Presence of automatic (implantable) cardiac defibrillator Status: Chronic Plan: Interrogation of his ICD shows normal ICD function, no events. It is a biventricular ICD. (5) Hypertension ICD Codes: I10 - Essential (primary) hypertension Status: Chronic Plan: Stable. Normotensive. Code Status full code Discussed Condition With patient Problem Qualifiers (1) Cardiomyopathy: Qualified Codes: I42.9 - Cardiomyopathy, unspecified (2) CAD (coronary artery disease): Qualified Codes: I25.10 - Atherosclerotic heart disease of [place] coronary artery without angina pectoris (3) Hypertension: Qualified Codes: I10 - Essential (primary) hypertension Mariusz Polanco MD Apr 27, 2017 07:23
[2017-04-27] MEDS: INSULIN ASPART SUPPLEMENTAL SCALE SQ SCH ×4 (08:00→21:00)
--- NOTE | 2017-04-27 08:01 | HHI.PR ---
Review/Management Diagnosis/Plan: (1) Acute embolic stroke ICD Codes: I63.9 - Cerebral infarction, unspecified Status: Acute Plan: s/p iv tpa all neuroimaging negative suspect functional weakness recs pt declines coumadin due to previous hx of hair loss started on eliquis left hip xray cardiology planning stress test d/c planning from neuro outpatient f/u with Dr. Robles d/w rn p.t. (2) Cardiomyopathy ICD Codes: I42.9 - Cardiomyopathy, unspecified Status: Chronic (3) Hypertension ICD Codes: I10 - Essential (primary) hypertension Status: Chronic (4) Chronic congestive heart failure ICD Codes: I50.9 - Heart failure, unspecified Status: Chronic Subjective Subjective Comments xcover No acute events reported c/o left hip pain, states it is affecting his weakness No headache No chest pain No dyspnea Active Medications Current Medications Medications (Trade) Dose Ordered Sig/Stacy Route Start Time Stop Time Status Last Admin (Lasix) 40 mg DAILY PO 04/25/17 09:00 04/26/17 09:17 (Neurontin) 100 mg TID PO 04/25/17 09:00 04/26/17 18:24 (Levemir Inj) 30 units HS SQ 04/24/17 21:00 04/26/17 20:54 (Prinivil) 5 mg DAILY PO 04/25/17 09:00 04/26/17 09:18 (KCl) 20 meq DAILY PO 04/25/17 09:00 (Aldactone) 25 mg DAILY PO 04/25/17 09:00 04/26/17 09:16 (D50w (Vial) Inj) 50 ml UNSCH PRN IV PUSH 04/24/17 18:15 (Glucagon Inj) 1 mg UNSCH PRN OTHER 04/24/17 18:15 (NovoLOG SUPPLEMENTAL SCALE) 1 ACHS SLIDING SCALE SQ 04/24/17 21:00 04/26/17 18:24 (Tylenol) 650 mg Q6H PRN PO 04/24/17 18:15 04/26/17 21:17 (Pepcid Inj) 20 mg Q12HR IV PUSH 04/24/17 21:00 04/26/17 20:54 (Zofran Inj) 4 mg Q6H PRN IV PUSH 04/24/17 18:15 04/25/17 00:03 (Duoneb Neb) 1 ampule Q4HR NEB PRN INH 04/24/17 18:15 Miscellaneous Information 1 Q361D XX 04/24/17 18:15 (Chlorhexidine 2% Cloth) 3 pack Taper DAILY@04 TOP 04/25/17 04:00 04/21/18 03:59 (Chlorhexidine 2% Cloth) 3 pack UNSCH PRN TOP 04/24/17 18:15 (Lipitor) 80 mg HS PO 04/26/17 21:00 04/26/17 20:54 (Coreg) 12.5 mg BID PO 04/26/17 21:00 04/26/17 20:54 (Ecotrin Ec) 81 mg DAILY PO 04/27/17 09:00 (Eliquis) 5 mg BID PO 04/26/17 21:00 04/26/17 21:16 Allergies Allergies Coded Allergies hydromorphone (Verified Allergy, Severe, Hives, 03/27/17) phenobarbital (Unverified Allergy, Unknown, 03/27/17) MRI PRECAUTION (Verified Adverse Reaction, Severe, 04/24/17) Review of Systems All other ROS: ROS reviewed as documented in chart Exam I&O / VS Vital Signs Date Time Temp Pulse Resp B/P (MAP) Pulse Ox O2 Delivery O2 Flow Rate FiO2 04/27/17 04:00 64 16 91/64 (73) 98 04/27/17 04:00 64 04/27/17 00:00 84 04/27/17 00:00 98.2 84 20 98/67 (77) 98 04/26/17 20:00 98.3 82 22 123/90 (101) 97 04/26/17 20:00 82 04/26/17 16:00 98.5 77 17 112/75 (87) 98 04/26/17 12:00 96 04/26/17 12:00 97.7 96 17 127/91 (103) 96 04/26/17 10:00 81 04/26/17 08:58 97 21 04/26/17 08:00 97.0 100 21 132/97 (109) 97 04/26/17 08:00 100 General: Alert and Oriented, No acute distress Eye: EOMI Respiratory: Non-labored respirations Neurologic: Alert, Oriented Psychiatric: Cooperative Exam Comments ox 3, slow speech initially then more fluent, articulate, eomi, vff, face sym, left leg weakness proportional to pt effot. initially couldn't raise it but with encouragement was able to keep it lifted for >3 secs, c/o left hip pain with passive rom, planterflexor with good withdrawal yanick le, no clonus Objective Micro and Labs Laboratory Tests Test 04/26/17 20:53 Blood Urea Nitrogen 12 Creatinine 1.15 Random Glucose 138 Calcium Level 8.5 Sodium Level 138 Potassium Level 3.5 Chloride Level 105 Carbon Dioxide Level 24.1 Anion Gap 9 Estimat Glomerular Filtration Rate 85 Problem Qualifiers (1) Cardiomyopathy: Qualified Codes: I42.9 - Cardiomyopathy, unspecified (2) Hypertension: Qualified Codes: I10 - Essential (primary) hypertension Ta Samuel MD Apr 27, 2017 08:01
[2017-04-27] MEDS: APIXABAN 5 MG TABLET PO SCH ×2 (09:00→21:07)
[2017-04-27] MEDS: SPIRONOLACTONE 25 MG TAB PO SCH (09:00)
[2017-04-27] MEDS: LISINOPRIL 5 MG TAB PO SCH ×2 (09:00→10:37)
[2017-04-27] MEDS ORDERED: REGADENOSON INJ 0.4 MG/5 ML SYR ONE (09:18)
[2017-04-27] MEDS: GABAPENTIN 100 MG CAP PO SCH ×3 (10:36→18:03)
[2017-04-27] MEDS: FAMOTIDINE 20 MG/2 ML VIAL IV PUSH SCH ×2 (10:36→21:00)
[2017-04-27] MEDS: POTASSIUM CHLORIDE 20 MEQ CONTROLLED RELEASE TAB PO SCH (10:37)
[2017-04-27] MEDS: CARVEDILOL 12.5 MG TAB PO SCH ×2 (10:37→21:07)
[2017-04-27] MEDS: ASPIRIN EC 81 MG TABEC PO SCH (10:37)
[2017-04-27] MEDS: FUROSEMIDE 40 MG TAB PO SCH (10:38)
--- NOTE | 2017-04-27 10:44 | RADRPT ---
EXAM DATE/TIME: 04/27/2017 10:23 [facility] COMPARISON: No previous studies available for comparison. INDICATIONS : Left hip pain no known injury. MEDICAL HISTORY : Cardiovascular disease.Hypercholesterolemia. Hypertension Diabetes mellitus type II. A-Fib, [place] SURGICAL HISTORY : Pacemaker. Coronary Stent ENCOUNTER: Subsequent ACUITY: 4 - 6 days PAIN SCORE: 7/10 LOCATION: Pelvis and left hip. FINDINGS: Examination of the left hip was performed with AP Pelvis. The primary and secondary trabecular patte rn of the femoral neck is intact. The hip joint is of normal width without significant sclerosis or bony hypertrophy. The acetabulum is grossly intact. CONCLUSION: 1. Unremarkable radiographs of the left hip. Miguel Martinez MD on April 27, 2017 at 10:38 Board Certified Radiologist. This report was verified electronically.
--- NOTE | 2017-04-27 12:24 | HHI.PR ---
Subjective Remarks Follow-up CVA 04/26/17-patient seen and examined, complains of left sided weakness as well as chest pain 04/27/17-patient seen and examined, complains of left lower extremity weakness otherwise denies any chest pain or shortness of breath. Going for second part nuclear stress test Objective Vitals Vital Signs Date Time Temp Pulse Resp B/P (MAP) Pulse Ox O2 Delivery O2 Flow Rate FiO2 04/27/17 12:07 97.3 67 19 105/76 (86) 97 04/27/17 08:16 97.5 61 16 111/83 (92) 100 04/27/17 04:00 64 16 91/64 (73) 98 04/27/17 04:00 64 04/27/17 00:00 84 04/27/17 00:00 98.2 84 20 98/67 (77) 98 04/26/17 20:00 98.3 82 22 123/90 (101) 97 04/26/17 20:00 82 04/26/17 16:00 98.5 77 17 112/75 (87) 98 I/O 04/26/17 04/26/17 04/26/17 04/27/17 04/27/17 04/27/17 07:00 15:00 23:00 07:00 15:00 23:00 Intake Total 600 ml 374 ml 120 ml 360 ml Output Total 650 ml 400 ml 1100 ml 150 ml Balance -50 ml -26 ml -980 ml 210 ml Intake Oral 600 ml 200 ml 120 ml 360 ml IV Total 174 ml Output Urine Total 650 ml 400 ml 1100 ml 150 ml # Voids 1 # Bowel Movements 0 1 0 Result Diagram: 04/24/17 1530 04/26/172052 Imaging Last Impressions Hip and Pelvis X-Ray 04/27/17 0000 Signed Impressions: Service Date/Time: April 10:23 - CONCLUSION: 1. Unremarkable radiographs of the left hip. Miguel Martinez MD Head CT 04/25/17 0000 Signed Impressions: Service Date/Time: Tuesday, April 25, 2017 17:00 - CONCLUSION: Normal examination. No significant change has occurred. Dank Humphreys MD Head/Neck CTA with Brain Perfusion 04/24/17 1635 Signed Impressions: Service Date/Time: Monday, April 24, 2017 15:42 - CONCLUSION: Symmetric perfusion. Ricki Lane MD Neck CTA 04/24/17 1534 Signed Impressions: Service Date/Time: Monday, April 24, 2017 15:42 - CONCLUSION: Minimal calcific plaque in the left carotid bulb and internal carotid artery with no evidence of stenosis. Ricki Lane MD Head CTA 04/24/17 1534 Signed Impressions: Service Date/Time: Monday, April 24, 2017 15:42 - CONCLUSION: Scattered atherosclerotic changes. No large vessel stenosis or aneurysm. Toro Khoury MD Objective Remarks GENERAL: NAD SKIN: Warm and dry. HEAD: Normocephalic. EYES: No scleral icterus. No injection or drainage. NECK: Supple, trachea midline. No JVD or lymphadenopathy. CARDIOVASCULAR: Regular rate and rhythm without murmurs, gallops, or rubs. RESPIRATORY: Breath sounds equal bilaterally. No accessory muscle use. GASTROINTESTINAL: Abdomen soft, non-tender, nondistended. MUSCULOSKELETAL: No cyanosis, or edema. Left leg weakness BACK: Nontender without obvious deformity. No CVA tenderness. Procedures None A/P Problem List: (1) CVA (cerebral vascular accident) ICD Code: I63.9 - Cerebral infarction, unspecified (2) Chronic congestive heart failure ICD Code: I50.9 - Heart failure, unspecified Status: Chronic (3) Chronic renal failure ICD Code: N18.9 - Chronic kidney disease, unspecified Status: Acute (4) Adjustment disorder with depressed mood ICD Code: F43.21 - Adjustment disorder with depressed mood (5) DM type 2 (diabetes mellitus, type 2) ICD Code: E11.9 - Type 2 diabetes mellitus without complications (6) CAD S/P percutaneous coronary angioplasty ICD Code: I25.10 - Atherosclerotic heart disease of [place] coronary artery without angina pectoris; Z98.61 - Coronary angioplasty status Assessment and Plan 42 yrs old man with Acute CVA s/p TPA therapy Plavix discontinued and patient now on Eliquis 5mg BID and ASA 81mg daily. He refused Coumadin Continue with Statin PT to treat and eval Appreciate input from Neurology Patient with functional weakness mostly in LLE Atypical chest pain Nuclear stress test pending and if negative patient can be discharged Appreciate input from cardiology Severe dilated Cardiomyopathy Continue lisinopril 5 mg daily, Coreg 12.5 mg twice a day, aspirin, statin History of chronic systolic CHF Currently on Lasix,BRIANNA-I, Aldactone, BB Coronary artery disease Continue with aspirin, beta angeline, statin Diabetes type 2 Currently on Levemir and insulin sliding scale Hyperkalemia Resolved DVT prophylaxis Toro Long MD Apr 27, 2017 12:24
[2017-04-27] MEDS ORDERED: CARV12.5 PO (12:28)
[2017-04-27] MEDS ORDERED: APIX5TAB PO (12:28)
[2017-04-27] MEDS ORDERED: ATOR80TA45 PO (12:28)
--- NOTE | 2017-04-27 14:10 | RADRPT ---
EXAM DATE/TIME: 04/26/2017 13:33 [facility] COMPARISON: No previous studies available for comparison. INDICATIONS : Chest pain and stroke alert. Angina. DOSE: 31.5 mCi Tc99m Myoview at stress. 31.2 mCi Tc99m Myoview at rest. 0.4 mg Lexiscan STRESS SYMPTOMS: Chest pain. EJECTION FRACTION: 22% MEDICAL HISTORY : Diabetes mellitus type 2. Hypertension. Cardiovascular disease SURGICAL HISTORY : Pacemaker. Angioplasty. ENCOUNTER: Initial ACUITY: 1 day PAIN SCALE: 0/10 LOCATION: Substernal chest TECHNIQUE: The patient underwent pharmacologic stress with infusion of prescribed dose. Continuous ECG tracing was monitored during stress. Gated SPECT imaging was performed after stress and conventional SPECT i maging was performed at rest. The examination was performed on a SPECT/CT scanner, both attenuation and non-corrected datasets were reviewed. FINDINGS: DISTRIBUTION: The maximum perfused segment at stress is in the anterior wall. PERFUSION STUDY: There is a large fixed septal wall defect but no definite reversibility. There is a summed stress sco re of 26. GATED STUDY: The septal wall is akinetic. The dominguez appear to contract with hypokinesis. CONCLUSION: 1. Abnormal ejection fraction 22% with akinesis in the septum and apparent global hypokinesis. 2. Large fixed perfusion defect involving the septal wall characteristic of infarction. There is no d efinite evidence of ischemia. RISK CATEGORY: High (>3% Annual Mortality Rate) Ricki Lane MD on April 27, 2017 at 14:03 Board Certified Radiologist. This report was verified electronically.
[2017-04-27] MEDS: ATORVASTATIN 80 MG TAB PO SCH (21:07)
[2017-04-27] MEDS: INSULIN DETEMIR 100 UNITS/ML VIAL SQ SCH (21:08)
[2017-04-28] VITALS (8 sets, daily range): BP systolic 87–119; BP diastolic 61–80; PULSE 64–78; RESP 17–18; TEMP 97.6–97.8; O2SAT 99–100
[2017-04-28] MEDS: CHLORHEXIDINE GLUCONATE 2 % 1 PACK (2 CLOTHS) TOP SCH (04:00)
[2017-04-28] MEDS: INSULIN ASPART SUPPLEMENTAL SCALE SQ SCH ×2 (08:00→12:00)
[2017-04-28] MEDS: FUROSEMIDE 40 MG TAB PO SCH (09:00)
[2017-04-28] MEDS: SPIRONOLACTONE 25 MG TAB PO SCH (09:00)
[2017-04-28] MEDS: LISINOPRIL 5 MG TAB PO SCH (09:00)
[2017-04-28] MEDS: GABAPENTIN 100 MG CAP PO SCH ×2 (09:26→12:43)
[2017-04-28] MEDS: ASPIRIN EC 81 MG TABEC PO SCH (09:27)
[2017-04-28] MEDS: FAMOTIDINE 20 MG/2 ML VIAL IV PUSH SCH (09:27)
[2017-04-28] MEDS: APIXABAN 5 MG TABLET PO SCH (09:27)
[2017-04-28] MEDS: POTASSIUM CHLORIDE 20 MEQ CONTROLLED RELEASE TAB PO SCH (09:27)
[2017-04-28] MEDS: CARVEDILOL 12.5 MG TAB PO SCH (09:28)
--- NOTE | 2017-04-28 10:32 | HHI.PR ---
Subjective Remarks Follow-up CVA 04/26/17-patient seen and examined, complains of left sided weakness as well as chest pain 04/27/17-patient seen and examined, complains of left lower extremity weakness otherwise denies any chest pain or shortness of breath. Going for second part nuclear stress test 04/28/17-patient seen and examined, still with left lower extremity weakness, Stress test on 04/27/17 negative. Denies any chest pain Objective Vitals Vital Signs Date Time Temp Pulse Resp B/P (MAP) Pulse Ox O2 Delivery O2 Flow Rate FiO2 04/28/17 10:02 115/80 (92) 04/28/17 08:00 66 04/28/17 05:37 66 04/28/17 04:00 97.6 64 18 87/61 (70) 100 04/28/17 00:56 68 04/28/17 00:00 97.8 67 18 119/70 (86) 99 04/27/17 21:00 75 04/27/17 20:00 98.5 78 20 110/74 (86) 100 04/27/17 19:56 73 04/27/17 16:00 97.3 70 16 108/76 (87) 98 04/27/17 12:07 97.3 67 19 105/76 (86) 97 I/O 04/27/17 04/27/17 04/27/17 04/28/17 04/28/17 04/28/17 06:59 14:59 22:59 06:59 14:59 22:59 Intake Total 360 ml Output Total 150 ml 875 ml Balance 210 ml -875 ml Intake Oral 360 ml Output Urine Total 150 ml 875 ml # Voids 1 4 # Bowel Movements 0 3 Result Diagram: 04/24/17 1530 04/26/172052 Imaging Last Impressions Hip and Pelvis X-Ray 04/27/17 0000 Signed Impressions: Service Date/Time: April 10:23 - CONCLUSION: 1. Unremarkable radiographs of the left hip. Miguel Martinez MD Myocardial Perfusion Scan Nuc Med 04/26/17 0000 Signed Impressions: Service Date/Time: Wednesday, April 26, 2017 13:33 - CONCLUSION: 1. Abnormal ejection fraction 22%% with akinesis in the septum and apparent global hypokinesis. 2. Large fixed perfusion defect involving the septal wall characteristic of infarction. There is no definite evidence of ischemia. RISK CATEGORY: High (>3%% Annual Mortality Rate) Ricki Lane MD Head CT 04/25/17 0000 Signed Impressions: Service Date/Time: Tuesday, April 25, 2017 17:00 - CONCLUSION: Normal examination. No significant change has occurred. Dank Humphreys MD Head/Neck CTA with Brain Perfusion 04/24/17 1635 Signed Impressions: Service Date/Time: Monday, April 24, 2017 15:42 - CONCLUSION: Symmetric perfusion. Ricki Lane MD Neck CTA 04/24/17 1534 Signed Impressions: Service Date/Time: Monday, April 24, 2017 15:42 - CONCLUSION: Minimal calcific plaque in the left carotid bulb and internal carotid artery with no evidence of stenosis. Ricki Lane MD Head CTA 04/24/17 1534 Signed Impressions: Service Date/Time: Monday, April 24, 2017 15:42 - CONCLUSION: Scattered atherosclerotic changes. No large vessel stenosis or aneurysm. Toro Khoury MD Objective Remarks GENERAL: NAD SKIN: Warm and dry. HEAD: Normocephalic. EYES: No scleral icterus. No injection or drainage. NECK: Supple, trachea midline. No JVD or lymphadenopathy. CARDIOVASCULAR: Regular rate and rhythm without murmurs, gallops, or rubs. RESPIRATORY: Breath sounds equal bilaterally. No accessory muscle use. GASTROINTESTINAL: Abdomen soft, non-tender, nondistended. MUSCULOSKELETAL: No cyanosis, or edema. Left leg weakness BACK: Nontender without obvious deformity. No CVA tenderness. Procedures None A/P Problem List: (1) CVA (cerebral vascular accident) ICD Code: I63.9 - Cerebral infarction, unspecified (2) Chronic congestive heart failure ICD Code: I50.9 - Heart failure, unspecified Status: Chronic (3) Chronic renal failure ICD Code: N18.9 - Chronic kidney disease, unspecified Status: Acute (4) Adjustment disorder with depressed mood ICD Code: F43.21 - Adjustment disorder with depressed mood (5) DM type 2 (diabetes mellitus, type 2) ICD Code: E11.9 - Type 2 diabetes mellitus without complications (6) CAD S/P percutaneous coronary angioplasty ICD Code: I25.10 - Atherosclerotic heart disease of [place] coronary artery without angina pectoris; Z98.61 - Coronary angioplasty status Assessment and Plan 42 yrs old man with Acute CVA s/p TPA therapy Plavix discontinued and patient now on Eliquis 5mg BID and ASA 81mg daily. He refused Coumadin Continue with Statin PT to treat and eval Appreciate input from Neurology Patient with functional weakness mostly in LLE Atypical chest pain Nuclear stress test 04/27/17 negative and patient has been cleared for discharge by Cardiology Appreciate input from cardiology Severe dilated Cardiomyopathy Continue lisinopril 5 mg daily, Coreg 12.5 mg twice a day, aspirin, statin History of chronic systolic CHF Currently on Lasix,BRIANNA-I, Aldactone, BB Coronary artery disease Continue with aspirin, beta angeline, statin Diabetes type 2 Currently on Levemir and insulin sliding scale Hyperkalemia Resolved DVT prophylaxis Toro Long MD Apr 28, 2017 10:32
--- NOTE | 2017-04-28 10:36 | HHI.DS ---
Discharge Summary Admission Date Apr 24, 2017 at 16:52 Discharge Date: Apr 28, 2017 Admitting Diagnosis STROKE. (1) CVA (cerebral vascular accident) ICD Code: I63.9 - Cerebral infarction, unspecified Diagnosis: Principal (2) Chronic congestive heart failure ICD Code: I50.9 - Heart failure, unspecified Diagnosis: Secondary Status: Chronic (3) Chronic renal failure ICD Code: N18.9 - Chronic kidney disease, unspecified Diagnosis: Secondary Status: Acute (4) Adjustment disorder with depressed mood ICD Code: F43.21 - Adjustment disorder with depressed mood Diagnosis: Secondary (5) DM type 2 (diabetes mellitus, type 2) ICD Code: E11.9 - Type 2 diabetes mellitus without complications Diagnosis: Secondary (6) CAD S/P percutaneous coronary angioplasty ICD Code: I25.10 - Atherosclerotic heart disease of [place] coronary artery without angina pectoris; Z98.61 - Coronary angioplasty status Diagnosis: Secondary Procedures None Brief History - From Admission 42 y/o man developed aphasia and right arm and leg flaccidity. Head CT, CTA head and neck, brain flow study without obstruction (after tPA). Speech improved to almost normal after tPA. Some strength starting to return to right arm and leg (2/5). History complicated by DM, 2, with prior ID X 2, stents, chronic systolic heart failure, and AICD placement. He is now in DDR mode with a -sensing and v-pacing. CBC/BMP: 04/24/17 1530 04/26/172052 Significant Findings Laboratory Tests Test 04/25/17 23:24 04/26/17 20:53 Random Glucose 138 MG/DL (74-106) Estimat Glomerular Filtration Rate 85 ML/MIN (>89) Imaging Last Impressions Hip and Pelvis X-Ray 04/27/17 0000 Signed Impressions: Service Date/Time: April 10:23 - CONCLUSION: 1. Unremarkable radiographs of the left hip. Miguel Martinez MD Myocardial Perfusion Scan Nuc Med 04/26/17 0000 Signed Impressions: Service Date/Time: Wednesday, April 26, 2017 13:33 - CONCLUSION: 1. Abnormal ejection fraction 22%% with akinesis in the septum and apparent global hypokinesis. 2. Large fixed perfusion defect involving the septal wall characteristic of infarction. There is no definite evidence of ischemia. RISK CATEGORY: High (>3%% Annual Mortality Rate) Ricki Lane MD Head CT 04/25/17 0000 Signed Impressions: Service Date/Time: Tuesday, April 25, 2017 17:00 - CONCLUSION: Normal examination. No significant change has occurred. Dank Humphreys MD Head/Neck CTA with Brain Perfusion 04/24/17 1635 Signed Impressions: Service Date/Time: Monday, April 24, 2017 15:42 - CONCLUSION: Symmetric perfusion. Ricki Lane MD Neck CTA 04/24/17 1534 Signed Impressions: Service Date/Time: Monday, April 24, 2017 15:42 - CONCLUSION: Minimal calcific plaque in the left carotid bulb and internal carotid artery with no evidence of stenosis. Ricki Lane MD Head CTA 04/24/17 1534 Signed Impressions: Service Date/Time: Monday, April 24, 2017 15:42 - CONCLUSION: Scattered atherosclerotic changes. No large vessel stenosis or aneurysm. Toro Khoury MD PE at Discharge GENERAL: NAD SKIN: Warm and dry. HEAD: Normocephalic. EYES: No scleral icterus. No injection or drainage. NECK: Supple, trachea midline. No JVD or lymphadenopathy. CARDIOVASCULAR: Regular rate and rhythm without murmurs, gallops, or rubs. RESPIRATORY: Breath sounds equal bilaterally. No accessory muscle use. GASTROINTESTINAL: Abdomen soft, non-tender, nondistended. MUSCULOSKELETAL: No cyanosis, or edema. Left leg weakness BACK: Nontender without obvious deformity. No CVA tenderness. Hospital Course While in hospital, patient was treated for: Acute CVA s/p TPA therapy Plavix discontinued and patient was started on Eliquis 5mg BID and ASA 81mg daily. He refused Coumadin Treated with Statin PT to treat and eval Appreciate input from Neurology Patient with functional weakness mostly in LLE Atypical chest pain Nuclear stress test 04/27/17 negative and patient has been cleared for discharge by Cardiology Appreciate input from cardiology Severe dilated Cardiomyopathy Treated with lisinopril 5 mg daily, Coreg 12.5 mg twice a day, aspirin, statin History of chronic systolic CHF Treated with Lasix,BRIANNA-I, Aldactone, BB Coronary artery disease Continue with aspirin, beta angeline, statin Diabetes type 2 Treated with Levemir and insulin sliding scale Hyperkalemia Resolved DVT prophylaxis Eliquis Pt Condition on Discharge: Stable Discharge Disposition: Discharge Home Discharge Time: > 30 minutes Discharge Instructions DIET: Follow Instructions for: Diabetic Diet Activities you can perform: Regular-No Restrictions Follow up Referrals: Cardiology Neurology PCP Follow-up - 1 Week New Medications: Apixaban (Eliquis) 5 Mg Tab 5 MG PO BID for Prevent Blood Clot, #60 TAB 3 Refills Atorvastatin (Atorvastatin) 80 Mg Tab 80 MG PO HS for Cholesterol Management, #30 TAB 3 Refills Carvedilol (Coreg) 12.5 Mg Tab 12.5 MG PO BID for Blood Pressure Management, #60 TAB 3 Refills Continued Medications: Aspirin DR (Aspirin 81) 81 Mg Tabdr 81 MG PO DAILY for Blood Clot Prevention, #30 TAB 0 Refills Furosemide (Lasix) 40 Mg Tab 40 MG PO DAILY for HEART FAILURE, #30 TAB 0 Refills Gabapentin (Gabapentin) 100 Mg Cap 100 MG PO TID for diabetic neuropathy , #90 CAP Insulin Detemir Inj (Levemir Inj) 1,000 unit/ 10 ML Vial 30 UNITS SQ HS for Blood Sugar Management, #30 VIAL 0 Refills Do not mix with any other Insulin. Lisinopril (Lisinopril) 5 Mg Tab 5 MG PO DAILY for Blood Pressure Management, #30 TAB 0 Refills Spironolactone (Spironolactone) 25 Mg Tab 25 MG PO DAILY for Blood Pressure Management, #30 TAB 0 Refills Trazodone (Trazodone) 50 Mg Tab 50 MG PO HS for Control Depression, #30 TAB 0 Refills Discontinued Medications: Atorvastatin (Atorvastatin) 20 Mg Tab 20 MG PO HS for Cholesterol Management, #30 TAB 0 Refills Carvedilol (Carvedilol) 6.25 Mg Tab 6.25 MG PO BID, #60 TAB 0 Refills Clopidogrel (Plavix) 75 Mg Tab 75 MG PO DAILY for Blood Clot Prevention, #30 TAB 0 Refills Potassium Chloride ER (Potassium Chloride ER) 20 Meq Tab 20 MEQ PO DAILY for Electrolyte Replacement, #30 TAB 0 Refills Prednisone (Deltasone) 20 Mg Tab 20 MG PO BID for 5 Days, #10 TAB 0 Refills Toro Burnett MD Apr 28, 2017 10:36
--- NOTE | 2017-04-28 10:36 | HHI.FF ---
Face to Face Verification Diagnosis: (1) Paroxysmal atrial fibrillation (2) Cardiomyopathy (3) CVA (cerebral vascular accident) (4) Acute embolic stroke Physical Therapy Order: Evaluate and Treat Home Health Nursing Order: Signs/symptoms of disease process I have seen patient Ady Abad on 04/28/17. My clinical findings support the need for the requested home health care services because: Deconditioned w/ increased weakness I certify that my clinical findings support that this patient is homebound because: Poor cardiac reserve Toro Burnett MD Apr 28, 2017 10:35
[2017-04-28] MEDS ORDERED: GETGO ROLLING W1 MI1 (11:45)
[2017-04-28] MEDS ORDERED: WALKER WHEELS/F1 MIS (13:04)
== END 2017-04-28 14:24 | disposition home or self-care (01) | DRG 62 ==
LOC: NEPE 15:25 → NEDA 16:52 → N03B 19:59 → N05A 04-27 15:22
PROVIDERS: ADMIT Hospitalist; ATTEND Hospitalist
PROC: 3E03317 Introduction of Other Thrombolytic into Peripheral Vein, Percutaneous Approach (ICD-10-PCS; principal; 2017-04-24)
PROC: 0T9B80Z Drainage of Bladder with Drainage Device, Via Natural or Artificial Opening Endoscopic (ICD-10-PCS; 2017-04-24)
DX: I63.9 Cerebral infarction, unspecified (principal); I13.0 Hypertensive heart and chronic kidney disease with heart failure and stage 1 through stage 4 chronic kidney disease, or unspecified chronic kidney disease; E11.22 Type 2 diabetes mellitus with diabetic chronic kidney disease; I50.22 Chronic systolic (congestive) heart failure; I42.0 Dilated cardiomyopathy; R47.01 Aphasia; I48.0 Paroxysmal atrial fibrillation; G81.04 Flaccid hemiplegia affecting left nondominant side; I45.2 Bifascicular block; E87.5 Hyperkalemia; I25.10 Atherosclerotic heart disease of native coronary artery without angina pectoris; R29.810 Facial weakness; N18.9 Chronic kidney disease, unspecified; I25.2 Old myocardial infarction; E78.00 Pure hypercholesterolemia, unspecified; E78.5 Hyperlipidemia, unspecified; I87.2 Venous insufficiency (chronic) (peripheral); F43.21 Adjustment disorder with depressed mood; Z79.4 Long term (current) use of insulin; Z82.49 Family history of ischemic heart disease and other diseases of the circulatory system; Z88.5 Allergy status to narcotic agent; Z95.5 Presence of coronary angioplasty implant and graft; Z95.810 Presence of automatic (implantable) cardiac defibrillator
CPT/HCPCS: 0042T; 36600; 51702; 70450; 70496; 70498; 73502; 78452; 80048; 80053; 80061; 80307; 81001; 82550; 82607; 82805; 82948; 84439; 84443; 84484; 85025; 85384; 85610; 85652; 85730; 86038; 86850; 86900; 86901; 87641; 93005; 93017; 95819; 96361; 96374; 96375; A9502; J1815; J2405; J2785; J2997; J7030; Q9967

== ENCOUNTER 2017-05-03 03:09 | Emergency (ER) | payer MEDICARE, OTHER ==
[~2017-05-03 03:09] MED LIST changes: +APIX5TAB PO; -ATOR20TA15 PO; +ATOR80TA45 PO; +CARV12.5 PO; -CARV6.252 PO; -PLAV75TA29 PO; -POTA-163 PO; -PRED-503 PO; +WALKER WHEELS/F1 MIS
[2017-05-03 03:13] VITALS: BP 135/95; PULSE 82; RESP 18; TEMP 97.5; O2SAT 100
[2017-05-03] MEDS ORDERED: SODIUM CHLORIDE 0.9% FLUSH 10 ML FLUSH IVF PRN (03:45)
--- NOTE | 2017-05-03 03:56 | PD ---
HPI Chief Complaint: Chest Pain Time Seen by Provider: 03:19 Travel History International Travel<30 days: No Contact w/Intl Traveler<30days: No Traveled to known affect area: No History of Present Illness HPI The patient is a 42 year old male who presents to the [facility] emergency department with a history of increasing lower extremity edema that has been worsening since discharge from the hospital on 04/28/2017. He reports that he is on Lasix but he is unsure of the dose or how often he takes the medication. He reports that he has not been taking his medication since discharge from the hospital with a stroke. He is not sure why he has not taken the medication. He noticed the increased swelling and his sister gave him a Lasix prior to arrival. The patient is very vague regarding his history. He repeatedly states that he does not know or does not remember. He cannot recall when he last saw his primary care physician at [facility]. He reports that he is living with his sister, however she will not be coming to the emergency department to assist with his history. On review of systems otherwise, the patient denies having any recent fevers, cough, congestion, neck pain, abdominal pain, vomiting, diarrhea, urinary symptoms, or new neurologic symptoms. From reviewing the electronic medical record the patient was admitted to the hospital from April 24 through April 28, 2017 after being diagnosed with an ischemic stroke status post TPA administration. FOR[facility]LY [facility], LATER [facility] Past Medical History Narrative Medical The patient's past medical history is significant for a cerebrovascular accident , hyperlipidemia, diabetes, congestive heart failure, hyperlipidemia, prior history of myocardial infarction in 2009, history of cardiomyopathy with an ejection fraction in the 20s, history of according to the electronic medical record atrial fibrillation, history of pacemaker placement. Atrial Fibrillation: Yes Cancer: No Cardiovascular Problems: Yes (PACEMAKER, STENT PLACEMENT) High Cholesterol: Yes Chest Pain: Yes Congestive Heart Failure: Yes Diabetes: Yes Patient Takes Glucophage: No Diminished Hearing: No Endocrine: Yes Gastrointestinal Disorders: No Genitourinary: No Hypertension: Yes Implanted Vascular Access Dvce: Yes Musculoskeletal: No Neurologic: No Psychiatric: No Reproductive: No Respiratory: No Immunizations Current: Yes Myocardial Infarction: Yes (X 1 IN 2009) Tetanus Vaccination: > 5 Years Influenza Vaccination: No Past Surgical History Narrative Surgical The patient's past surgical history is significant for an AICD and pacemaker placement, cardiac catheterization with stent placement. AICD: Yes ([id number]) Body Medical Devices: PACEMAKER Cardiac Surgery: Yes (AICD/PACER) Coronary Stent: Yes (X 1 ) Other Surgery: Yes (PACEMAKER, stent) Social History Alcohol Use: Yes (SOCIALLY) Tobacco Use: No Substance Use: No Allergies-Medications (Allergen,Severity, Reaction): Coded Allergies: hydromorphone (Verified Allergy, Severe, Hives, 05/03/17) phenobarbital (Unverified Allergy, Unknown, 05/03/17) MRI PRECAUTION (Verified Adverse Reaction, Severe, 05/03/17) [facility] PACEMAKER/DEFIB 04/24/17 [facility] Reported Meds & Prescriptions Reported Meds & Active Scripts Active Coreg (Carvedilol) 12.5 Mg Tab 12.5 Mg PO BID Atorvastatin (Atorvastatin Calcium) 80 Mg Tab 80 Mg PO HS Eliquis (Apixaban) 5 Mg Tab 5 Mg PO BID Walker with Front Wheels (Device) 1 Mis Mis Ea .XX DIRECTED Aspirin 81 (Aspirin) 81 Mg Tabdr 81 Mg PO DAILY Levemir Inj (Insulin Detemir) 1,000 unit/ 10 ML Vial 30 Units SQ HS Do not mix with any other Insulin. Lisinopril 5 Mg Tab 5 Mg PO DAILY Spironolactone 25 Mg Tab 25 Mg PO DAILY Lasix (Furosemide) 40 Mg Tab 40 Mg PO DAILY Trazodone (Trazodone HCl) 50 Mg Tab 50 Mg PO HS Gabapentin 100 Mg Cap 100 Mg PO TID Review of Systems Except as stated in HPI: all other systems reviewed are Neg General / Constitutional: No: Fever Eyes: No: Visual changes HENT: No: Headaches Cardiovascular: Positive: Edema, No: Chest Pain or Discomfort Respiratory: No: Shortness of Breath Gastrointestinal: No: Abdominal Pain Genitourinary: No: Dysuria Musculoskeletal: No: Pain Skin: No Rash Neurologic: Positive: Focal Abnormalities, No: Weakness, Change in Mentation, Slurred Speech, Sensory Disturbance Psychiatric: No: Depression Endocrine: No: Polydipsia Hematologic/Lymphatic: No: Easy Bruising Physical Exam Narrative General: The patient is a well-developed well-nourished male in no acute distress. Head and Neck exam: Head is normocephalic atraumatic. Eyes: EOMI, pupils are equal round and reactive to light. Nose: Midline septum with pink mucous membranes Mouth: Dentition unremarkable. Moist mucus membranes. Posterior oropharynx is not erythematous. No tonsillar hypertrophy. Uvula midline. Airway patent. Neck: No palpable lymphadenopathy. No nuchal rigidity. No thyromegaly. Cardiovascular: Regular rate and rhythm with a 2/6 systolic murmur. No gallops or rubs. No pulse deficit to the extremities on simultaneous auscultation and palpation of his radial artery. Lungs: Clear to auscultation bilaterally. No wheezes, rhonchi, or rales. Abdomen: Soft, without tenderness to palpation in all 4 quadrants of the abdomen. No guarding, rebound, or rigidity. Normal bowel sounds are audible. No tenderness on palpation of McBurney's point. Extremities: No clubbing or cyanosis. The patient has 2+ pitting edema bilateral lower extremities. 2+ pulses in all 4 extremities. No calf tenderness on palpation. Less than 3 second capillary refill. Back: No spinous process tenderness to palpation. No costovertebral angle tenderness to palpation. Neurologic Exam: The patient has memory problems and is slow to answer questions on examination. He reports that this is related to his recent stroke. The patient has right upper and lower extremity weakness on examination that is residual from his prior stroke. No evidence of facial asymmetry. Strength is 5 over 5 in the left upper and left lower extremity. According to the record this appears to be at baseline compared to his discharge examination. Skin Exam: No rash noted. Intact skin that is warm and dry. Data Data Last Documented VS Vital Signs Date Time Temp Pulse Resp B/P (MAP) Pulse Ox O2 Delivery O2 Flow Rate FiO2 05/03/17 06:57 05/03/17 06:54 90 16 96 Room Air 05/03/17 03:13 97.5 Orders Orders Complete Blood Count With Diff (05/03/17 03:40) Comprehensive Metabolic Panel (05/03/17 03:40) B-Type Natriuretic Peptide (05/03/17 03:40) D-Dimer (05/03/17 03:40) Act Partial Throm Time (Ptt) (05/03/17 03:40) Prothrombin Time / Inr (Pt) (05/03/17 03:40) Magnesium (Mg) (05/03/17 03:40) Ckmb (Isoenzyme) Profile (05/03/17 03:40) Troponin I (05/03/17 03:40) Urinalysis - C+S If Indicated (05/03/17 03:40) Iv Access Insert/Monitor (05/03/17 03:40) Electrocardiogram (05/03/17 03:40) Ecg Monitoring (05/03/17 03:40) Oximetry (05/03/17 03:40) Oxygen Administration (05/03/17 03:40) Chest, Single Ap (05/03/17 03:40) Sodium Chloride 0.9% Flush (Ns Flush) (05/03/17 03:45) Furosemide Inj (Lasix Inj) (05/03/17 05:00) Us Leg Venous Doppler Bilat (05/03/17 04:52) Labs Laboratory Tests Test 05/03/17 03:45 05/03/17 06:10 White Blood Count 10.3 TH/MM3 Red Blood Count 6.99 MIL/MM3 Hemoglobin 15.1 GM/DL Hematocrit 45.8 % Mean Corpuscular Volume 65.5 FL Mean Corpuscular Hemoglobin 21.6 PG Mean Corpuscular Hemoglobin Concent 33.0 % Red Cell Distribution Width 21.1 % Platelet Count 182 TH/MM3 Mean Platelet Volume 9.1 FL Neutrophils (%) (Auto) 80.0 % Lymphocytes (%) (Auto) 15.3 % Monocytes (%) (Auto) 3.6 % Eosinophils (%) (Auto) 0.4 % Basophils (%) (Auto) 0.7 % Neutrophils # (Auto) 8.3 TH/MM3 Lymphocytes # (Auto) 1.6 TH/MM3 Monocytes # (Auto) 0.4 TH/MM3 Eosinophils # (Auto) 0.0 TH/MM3 Basophils # (Auto) 0.1 TH/MM3 CBC Comment DIFF FINAL Differential Comment Prothrombin Time 12.2 SEC Prothromb Time International Ratio 1.2 RATIO Activated Partial Thromboplast Time 25.9 SEC D-Dimer Quantitative (PE/DVT) 0.24 MG/L FEU Blood Urea Nitrogen 17 MG/DL Creatinine 1.24 MG/DL Random Glucose 273 MG/DL Total Protein 6.8 GM/DL Albumin 3.1 GM/DL Calcium Level 8.5 MG/DL Magnesium Level 1.8 MG/DL Alkaline Phosphatase 237 U/L Aspartate Amino Transf (AST/SGOT) 25 U/L Alanine Aminotransferase (ALT/SGPT) 35 U/L Total Bilirubin 1.4 MG/DL Sodium Level 137 MEQ/L Potassium Level 4.2 MEQ/L Chloride Level 102 MEQ/L Carbon Dioxide Level 28.2 MEQ/L Anion Gap 7 MEQ/L Estimat Glomerular Filtration Rate 77 ML/MIN Total Creatine Kinase 40 U/L Troponin I 0.02 NG/ML B-Type Natriuretic Peptide 995 PG/ML Urine Color LIGHT-YELLOW Urine Turbidity CLEAR Urine pH 6.0 Urine Specific [place] 1.008 Urine Protein 30 mg/dL Urine Glucose (UA) 150 mg/dL Urine Ketones NEG mg/dL Urine Occult Blood NEG Urine Nitrite NEG Urine Bilirubin NEG Urine Urobilinogen LESS THAN 2.0 MG/DL Urine Leukocyte Esterase NEG Urine RBC 1 /hpf Urine WBC LESS THAN 1 /hpf Microscopic Urinalysis Comment CULT NOT INDICATED MDM Medical Decision Making Medical Screen Exam Complete: Yes Emergency Medical Condition: Yes Medical Record Reviewed: Yes Interpretation(s) Last Impressions Lower Extremity Ultrasound 05/03/17 0454 Signed Impressions: Service Date/Time: Wednesday, May 03, 2017 06:10 - CONCLUSION: No DVT is identified within either lower extremity. There is subcutaneous edema. Home Lopes MD Chest X-Ray 05/03/17 0340 Signed Impressions: Service Date/Time: Wednesday, May 03, 2017 03:58 - CONCLUSION: Stable chest x-ray. No acute cardiopulmonary abnormality is identified. Home Lopes MD Differential Diagnosis Congestive heart failure exacerbation due to medication noncompliance, versus DVT, versus Narrative Course During the course of the patients emergency department visit, the patients history, examination, and differential diagnosis were reviewed with the patient. The patient was placed on a furniture upholsterer with oximetry and frequent blood pressure monitoring. The patient had IV access obtained and blood work sent for analysis. The patient had an EKG done on arrival that shows an electronic ventricular paced rhythm at 73, no acute ST segment changes. An ultrasound of bilateral lower extremities was ordered to further evaluate for possible underlying DVT as this has not been done recently during his hospitalization. The patient was initially provided Lasix 40 mg IV. The patients laboratory studies were reviewed and remarkable for White count is 10.3, hemoglobin 15.1, platelets are 182 with 80 neutrophils, CMP is remarkable for GFR of 77, glucose 273, total bilirubin 1.4, alk phos 237, cardiac enzymes within normal limits, BNP is elevated at 990, albumin 3.1-which could also be contributing to his extremity edema, PT 12.2, PTT 25.9, d-dimer 0.24. Radiology studies were reviewed and remarkable for Chest x-ray showed no acute pulmonary abnormality. Stable chest x-ray compared to previous. Ultrasound of bilateral lower extremities revealed no evidence of DVT. The patient is resting comfortably and feels better, is alert and in no distress. The patients results and examination findings were discussed with the patient. The repeat examination is unremarkable and benign. The history, exam, diagnostic testing, and current condition do not suggest any significant pathology to warrant further testing, continued ED treatment, admission, or surgical evaluation at this point. The vital signs have been stable. The patient does not have uncontrollable pain, intractable vomiting, or other significant symptoms. The patient's condition is stable and appropriate for discharge. The patient will pursue further outpatient evaluation with a primary care physician or other designated or consulting physician as indicated in the discharge instructions. The patient expressed understanding and was agreeable with this plan. Diagnosis Primary Impression: Peripheral edema Additional Impressions: Congestive heart failure Qualified Codes: I50.33 - Acute on chronic diastolic (congestive) heart failure Noncompliance with medication regimen Referrals: Primary Care Physician 2 days Patient Instructions: General Instructions, Heart Failure (ED), Leg Edema (ED) Additional Instructions: The patient is instructed to take his prescription medications as previously prescribed. The patient denies being on some of the medications that were previously listed in his record. The patient is given prescriptions as recommended by the admitting team again at this time. Med/Other Pt SpecificInfo: Prescription(s) given Scripts Carvedilol (Coreg) 12.5 Mg Tab 12.5 MG PO BID for Blood Pressure Management, #60 TAB 3 Refills Prov: Nicole Miramontes MD 05/03/17 Atorvastatin (Atorvastatin) 80 Mg Tab 80 MG PO HS for Cholesterol Management, #30 TAB 3 Refills Prov: Nicole Miramontes MD 05/03/17 Apixaban (Eliquis) 5 Mg Tab 5 MG PO BID for Prevent Blood Clot, #60 TAB 3 Refills Prov: Nicole Miramontes MD 05/03/17 Disposition: 01 DISCHARGE HOME Condition: Stable Nicole Miramontes MD May 03, 2017 03:56
[2017-05-03 03:57] LABS: AUTOMATED NEUTROPHIL # 8.3 TH/MM3 (1.8-7.7); BASOPHIL # 0.1 TH/MM3 (0-0.2); BASOPHIL % 0.7 % (0.0-2.0); EOSINOPHIL % 0.4 % (0.0-4.0); HEMATOCRIT 45.8 % (39.0-51.0); HEMOGLOBIN 15.1 GM/DL (13.0-17.0); LYMPH % 15.3 % (9.0-44.0); LYMPHOCYTE # 1.6 TH/MM3 (1.0-4.8); MEAN CELL VOLUME 65.5 FL (80.0-100.0); MEAN CORPUSCULAR HEMOGLOBIN 21.6 PG (27.0-34.0); MEAN PLATELET VOLUME 9.1 FL (7.0-11.0); MONO % 3.6 % (0.0-8.0); MONOCYTE # 0.4 TH/MM3 (0-0.9); PLATELET COUNT 182 TH/MM3 (150-450); RED BLOOD COUNT 6.99 MIL/MM3 (4.50-5.90); RED CELL DISTRIBUTION WIDTH 21.1 % (11.6-17.2); WHITE BLOOD COUNT 10.3 TH/MM3 (4.0-11.0)
--- NOTE | 2017-05-03 04:08 | RADRPT ---
EXAM DATE/TIME: 05/03/2017 03:58 [facility] COMPARISON: CHEST SINGLE AP, April 21, 2017, 2:45. INDICATIONS : Shortness of breath. MEDICAL HISTORY : Diabetes mellitus type 2. Hypertension. Cardiovascular disease SURGICAL HISTORY : Pacemaker. Angioplasty ENCOUNTER: Initial ACUITY: 1 day PAIN SCORE: 0/10 LOCATION: Bilateral chest FINDINGS: Portable AP view of the chest demonstrates cardiac silhouette size at the upper limits for normal. Le ft chest wall cardiac pacing device/AICD remains present. No effusion, consolidation, or pneumothorax is identified. The bones and soft tissues demonstrate no acute finding. CONCLUSION: Stable chest x-ray. No acute cardiopulmonary abnormality is identified. Home Lopes MD on May 03, 2017 at 4:06 Board Certified Radiologist. This report was verified electronically.
[2017-05-03 04:16] LABS: ALBUMIN 3.1 GM/DL (3.4-5.0); ALT (GPT) 35 U/L (12-78); AST (GOT) 25 U/L (15-37); BICARBONATE 28.2 MEQ/L (21.0-32.0); BLOOD UREA NITROGEN 17 MG/DL (7-18); CALCIUM 8.5 MG/DL (8.5-10.1); CHLORIDE 102 MEQ/L (98-107); CREATININE 1.24 MG/DL (0.60-1.30); GLOMERULAR FILTRATION RATE 77 ML/MIN (>89); GLUCOSE,RANDOM 273 MG/DL (74-106); MAGNESIUM 1.8 MG/DL (1.5-2.5); SODIUM (NA) 137 MEQ/L (136-145)
[2017-05-03 04:20] LABS: ALKALINE PHOSPHATASE 237 U/L (45-117); TOTAL BILIRUBIN ADULT 1.4 MG/DL (0.2-1.0); TOTAL PROTEIN 6.8 GM/DL (6.4-8.2); TROPONIN I 0.02 NG/ML (0.02-0.05)
[2017-05-03 04:27] LABS: D-DIMER 0.24 MG/L FEU (0.00-0.50); INTERNATIONAL NORMALIZED RATIO 1.2 RATIO; PROTHROMBIN TIME - PATIENT 12.2 SEC (9.8-11.6)
[2017-05-03] MEDS ORDERED: FUROSEMIDE 40 MG/4 ML VIAL IV PUSH ONE (05:00)
[2017-05-03] MEDS ORDERED: APIX5TAB PO ×2 (06:32→06:53)
[2017-05-03] MEDS ORDERED: CARV12.5 PO ×2 (06:32→06:53)
[2017-05-03] MEDS ORDERED: ATOR80TA45 PO ×2 (06:32→06:53)
--- NOTE | 2017-05-03 06:40 | RADRPT ---
EXAM DATE/TIME: 05/03/2017 06:10 [facility] COMPARISON: No previous studies available for comparison. INDICATIONS : Bilateral leg swelling. MEDICAL HISTORY : Hypercholesterolemia. Myocardial infarction. Congestive heart failure. Hypertension. Afib. Diabetes. SURGICAL HISTORY : Pacemaker. ENCOUNTER: Initial ACUITY: 1 day PAIN SCORE: 4/10 LOCATION: Bilateral legs. TECHNIQUE: Venous ultrasound of the left and right leg was performed from the inguinal ligament to the proximal calf. Real-time, color Doppler and spectral tracing, compression and augmentation techniques were us ed. FINDINGS: RIGHT LEG: There is normal compressibility of the deep venous system from the inguinal region to the proximal ca lf. No echogenic clot is seen in the lumen of the common femoral, femoral, popliteal, and posterior tibial veins. There is a normal response of the venous system to proximal and distal augmentation an d respiration. LEFT LEG: There is normal compressibility of the deep venous system from the inguinal region to the proximal ca lf. No echogenic clot is seen in the lumen of the common femoral, femoral, popliteal, and posterior tibial veins. There is a normal response of the venous system to proximal and distal augmentation an d respiration. CONCLUSION: No DVT is identified within either lower extremity. There is subcutaneous edema. Home Lopes MD on May 03, 2017 at 6:38 Board Certified Radiologist. This report was verified electronically.
[2017-05-03 06:54] VITALS: BP 144/100; PULSE 90; RESP 16; O2SAT 96
[2017-05-03 07:11] LABS: BILIRUBIN, URINE NEG (NEG); BLOOD, URINE NEG (NEG); GLUCOSE,URINE 150 mg/dL (NEG); KETONE, URINE NEG (NEG); NITRITE,URINE NEG (NEG); URINE COLOR LIGHT-YELLOW (YELLW/STRAW); URINE LEUKOCYTE ESTERASE NEG (NEG)
--- NOTE | 2017-05-03 11:01 | EKG ---
Date Performed: 05/03/2017 Time Performed: 03:22:42 PTAGE: 42 years EKG: ELECTRONIC VENTRICULAR PACEMAKER LEFT ATRIAL ENLARGEMENT ABNORMAL RHYTHM ECG PREVIOUS TRACING : 04/25/2017 07.56 DOCTOR: Jose Miguel Boateng Interpretating Date/Time 05/03/2017 10:57:25
== END 2017-05-03 07:02 | disposition home or self-care (01) ==
LOC: NEPE 03:09
DX: R60.9 Edema, unspecified (principal); I50.33 Acute on chronic diastolic (congestive) heart failure; I11.0 Hypertensive heart disease with heart failure; I25.10 Atherosclerotic heart disease of native coronary artery without angina pectoris; E78.00 Pure hypercholesterolemia, unspecified; E78.5 Hyperlipidemia, unspecified; E11.9 Type 2 diabetes mellitus without complications; I25.2 Old myocardial infarction; I42.9 Cardiomyopathy, unspecified; I48.91 Unspecified atrial fibrillation; R94.31 Abnormal electrocardiogram [ECG] [EKG]; Z91.14 Patient's other noncompliance with medication regimen; Z86.73 Personal history of transient ischemic attack (TIA), and cerebral infarction without residual deficits; Z95.810 Presence of automatic (implantable) cardiac defibrillator; Z95.5 Presence of coronary angioplasty implant and graft; Z95.0 Presence of cardiac pacemaker; Z88.5 Allergy status to narcotic agent; Z79.01 Long term (current) use of anticoagulants; Z79.899 Other long term (current) drug therapy
CPT/HCPCS: 71045; 80053; 81001; 82550; 83735; 83880; 84484; 85025; 85379; 85610; 85730; 93005; 93970; 96374; 99285; J1940

== ENCOUNTER 2017-05-04 14:31 | Observation (INO) | payer MEDICARE, OTHER ==
[~2017-05-04] VITALS: Ht 177.8 cm; Wt 80.0 kg
[2017-05-04 14:31] VITALS: BP 120/83; PULSE 83; RESP 18; TEMP 97.8; O2SAT 99
[2017-05-04] MEDS ORDERED: HALOPERIDOL LACTATE 5 MG/ML AMP ONE (14:35)
[2017-05-04] MEDS ORDERED: LORazepam 2 MG/ML VIAL ONE (14:35)
[2017-05-04] MEDS ORDERED: SODIUM CHLORIDE 0.9% FLUSH 10 ML FLUSH IVF PRN (14:45)
[2017-05-04 14:48] VITALS: O2SAT 97
--- NOTE | 2017-05-04 15:28 | RADRPT ---
EXAM DATE/TIME: 05/04/2017 14:55 [facility] COMPARISON: CT BRAIN W/O CONTRAST, April 25, 2017, 17:00. INDICATIONS : Stroke, slurred speech RADIATION DOSE: 37.93 CTDIvol (mGy) MEDICAL HISTORY : Cardiovascular disease. Congestive heart failure. Hypertension.Diabetes SURGICAL HISTORY : Coronary artery stent. Pacemaker. ENCOUNTER: Initial ACUITY: 1 day PAIN SCALE: Non-responsive LOCATION: cranial TECHNIQUE: Multiple contiguous axial images were obtained of the head. Using automated exposure control and adj ustment of the mA and/or kV according to patient size, radiation dose was kept as low as reasonably a chievable to obtain optimal diagnostic quality images. DICOM format image data is available electro nically for review and comparison. FINDINGS: CEREBRUM: The ventricles are normal for age. No evidence of midline shift, mass lesion, hemorrhage or acute in farction. No extra-axial fluid collections are seen. POSTERIOR FOSSA: The cerebellum and brainstem are intact. The 4th ventricle is midline. The cerebellopontine angle i s unremarkable. EXTRACRANIAL: The visualized portion of the orbits is intact. SKULL: The calvaria is intact. No evidence of skull fracture. CONCLUSION: Negative exam. Results were called to Dr. Pompa at the time of this dictation. Danny Carlson MD on May 04, 2017 at 15:23 Board Certified Radiologist. This report was verified electronically.
[2017-05-04 15:33] LABS: BASOPHIL % 0.4 % (0.0-2.0); EOSINOPHIL % 0.3 % (0.0-4.0); HEMATOCRIT 45.8 % (39.0-51.0); HEMOGLOBIN 15.1 GM/DL (13.0-17.0); LYMPH % 10.7 % (9.0-44.0); MEAN CELL VOLUME 65.4 FL (80.0-100.0); MEAN CORPUSCULAR HEMOGLOBIN 21.6 PG (27.0-34.0); MEAN PLATELET VOLUME 9.4 FL (7.0-11.0); MONOCYTE # 0.4 TH/MM3 (0-0.9); NEUT % 84.6 % (16.0-70.0); PLATELET COUNT 182 TH/MM3 (150-450); RED CELL DISTRIBUTION WIDTH 20.8 % (11.6-17.2); WHITE BLOOD COUNT 9.4 TH/MM3 (4.0-11.0)
[2017-05-04 15:39] LABS: ALBUMIN 2.8 GM/DL (3.4-5.0); ALT (GPT) 27 U/L (12-78); AST (GOT) 29 U/L (15-37); BICARBONATE 26.9 MEQ/L (21.0-32.0); BLOOD UREA NITROGEN 15 MG/DL (7-18); CHLORIDE 101 MEQ/L (98-107); CREATININE 1.18 MG/DL (0.60-1.30); GLOMERULAR FILTRATION RATE 82 ML/MIN (>89); GLUCOSE,RANDOM 295 MG/DL (74-106); SODIUM (NA) 136 MEQ/L (136-145)
[2017-05-04 15:43] LABS: INTERNATIONAL NORMALIZED RATIO 1.2 RATIO; PROTHROMBIN TIME - PATIENT 12.1 SEC (9.8-11.6)
[2017-05-04 15:44] LABS: ALKALINE PHOSPHATASE 210 U/L (45-117); TOTAL BILIRUBIN ADULT 1.5 MG/DL (0.2-1.0); TOTAL PROTEIN 6.3 GM/DL (6.4-8.2); TROPONIN I 0.02 NG/ML (0.02-0.05)
[2017-05-04] MEDS ORDERED: MIDAZOLAM HCL 2 MG/2 ML VIAL IV PUSH ONE (16:15)
[2017-05-04] MEDS ORDERED: LORazepam 2 MG/ML VIAL IV PUSH ONE (16:15)
[2017-05-04] MEDS ORDERED: HALOPERIDOL LACTATE 5 MG/ML AMP IV PUSH ONE (16:15)
--- NOTE | 2017-05-04 16:21 | RADRPT ---
EXAM DATE/TIME: 05/04/2017 15:18 [facility] COMPARISON: CHEST SINGLE AP, May 03, 2017, 3:58. INDICATIONS : Short of breath. MEDICAL HISTORY : Cardiovascular disease.Hypercholesterolemia. Hypertension Diabetesmellitus type II. A-Fib, [place] SURGICAL HISTORY : Pacemaker. Coronary Stent ENCOUNTER: Initial ACUITY: 1 day PAIN SCORE: 0/10 LOCATION: Bilateral chest FINDINGS: Pacemaker device is noted with control pack over the left chest. Cardiac silhouette is mildly enlarge d. No definite focal infiltrate or effusion is identified. Mediastinal contours are grossly stable. CONCLUSION: Grossly stable chest appearance. Home Rodriguez MD on May 04, 2017 at 16:18 Board Certified Radiologist. This report was verified electronically.
[2017-05-04] MEDS ORDERED: GLUCAGON 1 MG/ML VIAL OTHER PRN ×2 (17:45→20:45)
[2017-05-04] MEDS ORDERED: DEXTROSE 50% IN WATER 50 ML VIAL(D50) IV PUSH PRN ×2 (17:45→20:45)
[2017-05-04] MEDS ORDERED: SODIUM CHLORIDE 0.9% FLUSH 10 ML FLUSH IV FLUSH PRN ×2 (17:45→20:00)
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
[2017-05-04 18:38] VITALS: BP 102/74; PULSE 68; RESP 15; O2SAT 100
[2017-05-04 19:08] VITALS: BP 111/84; PULSE 69; RESP 20; O2SAT 94
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
[2017-05-04 19:51] LABS: BILIRUBIN, URINE NEG (NEG); BLOOD, URINE NEG (NEG); GLUCOSE,URINE 300 mg/dL (NEG); KETONE, URINE NEG (NEG); NITRITE,URINE NEG (NEG); PH, URINE 6.5 (5.0-8.5); URINE COLOR LIGHT-YELLOW (YELLW/STRAW); URINE LEUKOCYTE ESTERASE NEG (NEG)
[2017-05-04] MEDS ORDERED: BISACODYL 10 MG SUPP RECTAL PRN (20:00)
[2017-05-04] MEDS: ASPIRIN 81 MG CHEW TAB PO SCH (20:00)
[2017-05-04] MEDS ORDERED: SENNOSIDES 8.6 MG TAB PO PRN (20:00)
[2017-05-04] MEDS ORDERED: LACTULOSE SYRUP 20 GM/30 ML CUP PO PRN (20:00)
[2017-05-04] MEDS ORDERED: NALOXONE HCL 0.4 MG/ML AMP IV PUSH PRN (20:00)
[2017-05-04] MEDS ORDERED: MAGNESIUM HYDROXIDE SUSP 30 ML CUP PO PRN (20:00)
[2017-05-04] MEDS ORDERED: ATORVASTATIN 80 MG TAB PO SCH (21:00)
[2017-05-04] MEDS ORDERED: SODIUM CHLORIDE 0.9% FLUSH 10 ML FLUSH IV FLUSH SCH (21:00)
[2017-05-04] MEDS ORDERED: INSULIN ASPART SUPPLEMENTAL SCALE SQ SCH (21:00)
[2017-05-04] MEDS: SODIUM CHLORIDE 0.9% FLUSH 10 ML FLUSH IV FLUSH SCH (21:00)
[2017-05-04] MEDS ORDERED: APIXABAN 5 MG TABLET PO SCH (21:00)
--- NOTE | 2017-05-04 21:06 | RADRPT ---
EXAM DATE/TIME: 05/04/2017 20:52 [facility] COMPARISON: CHEST SINGLE AP, May 04, 2017, 15:18. INDICATIONS : Short of breath. MEDICAL HISTORY : Hypercholesterolemia. Myocardial infarction. Congestive heart failure. Hypertension. Afib. Diabetes. SURGICAL HISTORY : Pacemaker. ENCOUNTER: Initial ACUITY: 1 day PAIN SCORE: 0/10 LOCATION: Bilateral chest FINDINGS: Slight vascular crowding at the bases. No overt edema. No effusion seen. No pneumothorax. Heart size stable, mildly enlarged. Cardiac pacer again noted. CONCLUSION: No acute abnormality. Home Zelaya MD on May 04, 2017 at 21:03 Board Certified Radiologist. This report was verified electronically.
[2017-05-04 21:21] VITALS: BP 124/94; PULSE 85; RESP 16; TEMP 98.2; O2SAT 100
[2017-05-04 22:26] LABS: HEMOGLOBIN A1C 11.6 % (4.3-6.0)
[2017-05-04 22:53] VITALS: BP 116/82; PULSE 75; RESP 17; TEMP 98.5; O2SAT 97
[2017-05-04] MEDS: DOCUSATE SODIUM 50 MG/SENNA 8.6 MG TAB PO SCH (23:06)
[2017-05-04] MEDS: APIXABAN 5 MG TABLET PO SCH (23:08)
[2017-05-04] MEDS: INSULIN ASPART SUPPLEMENTAL SCALE SQ SCH (23:40)
[2017-05-04] MEDS: SODIUM CHLOR 0.9% 1000 ML INJ 1,000 ML IV SCH (23:41)
--- NOTE | 2017-05-05 | RADRPT ---
EXAM DATE/TIME: 05/04/2017 23:05 [facility] COMPARISON: No previous studies available for comparison. INDICATIONS : Syncope. MEDICAL HISTORY : Hypercholesterolemia. Myocardial infarction. Congestive heart failure. Hypertension. Afib. Diabetes. SURGICAL HISTORY : Pacemaker. ENCOUNTER: Initial ACUITY: 1 day PAIN SCORE: 2/10 LOCATION: Bilateral neck PEAK SYSTOLIC VELOCITIES (cm/sec): ICA/CCA RATIO: Right: 0.7 Left: 1.0 ICA: Right: 41.7 Left: 51.0 CCA: Right: 56.4 Left: 49.4 ECA: Right: 23.4 Left: 26.1 VERTEBRAL: Right: 28.2 antegrade Left: 35.3 antegrade Elevated flow velocities and ICA/CCA ratios have been found to correlate with increased degrees of vessel stenosis, calculated as percentage of diameter relative to a normal segment of distal ICA/CCA FINDINGS: RIGHT CAROTID: No significant stenosis is visualized. The waveforms are within normal limits. LEFT CAROTID: No significant stenosis is visualized. The waveforms are within normal limits. VERTEBRAL ARTERIES: Antegrade flow is seen in both vertebral arteries. MISCELLANEOUS: None. CONCLUSION: 1. Minimal visible plaque in the carotid arteries bilaterally without stenosis. Vertebral artery flow antegrade. Tony Soto MD on May 04, 2017 at 23:58 Board Certified Radiologist. This report was verified electronically.
[2017-05-05] MEDS ORDERED: diphenhydrAMINE HCL 50 MG CAP PO ONE (03:00)
[2017-05-05 03:02] VITALS: BP 110/82; PULSE 86; RESP 16; TEMP 97.8; O2SAT 99
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
[2017-05-05] MEDS: INSULIN ASPART SUPPLEMENTAL SCALE SQ SCH ×2 (08:00→13:41)
[2017-05-05] MEDS: SODIUM CHLOR 0.9% 1000 ML INJ 1,000 ML IV SCH (08:02)
[2017-05-05 08:13] LABS: CHOLESTEROL/ HDL RATIO 3.75 RATIO; HDL CHOLESTEROL 26.6 MG/DL (40.0-60.0)
--- NOTE | 2017-05-05 08:36 | MB ---
cc: BAUTISTA DAVE Corrected: 05/05/2017 DATE OF CONSULTATION 05/04/2017 REASON FOR CONSULTATION Possible stroke. HISTORY OF PRESENT ILLNESS Mr. Abad is a 42-year-old man who apparently has a history of previous stroke. He has a history of pacemaker, cardiomyopathy with an ejection fraction of 20%. Apparently he was supposed to be on Eliquis because of cardiomyopathy. He states he has not been on Eliquis for some reason; it is unclear why. He was brought to the hospital when he was noted to have slurred speech. 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 The patient has been very combative and also confused. PAST MEDICAL HISTORY 1. History of previous stroke treated with t-PA on April 24 with left arm weakness and slurred speech. At that time he was evaluated with head CT scan which was negative. CTA of neck showing minimal calcific plaque in the left side but no significant stenosis. HEAD CTA - No large vessel occlusion, minimal atherosclerotic change. He had a CT perfusion brain which was normal. We could not get an MRI because of the pacemaker. At that time he apparently had improvement in his symptoms. 2. He was found to have an EF of 20% in the past with a dilated cardiomyopathy. He was seen by Dr. Polanco in the hospital that admission who recommended Eliquis 5 mg b.i.d. and also daily baby aspirin because his coronary artery disease. NEUROLOGIC EXAMINATION VITAL SIGNS: Blood pressure 120/83, pulse 83, respirations 18, temperature 97.8 degrees. Higher cortical function - He is lethargic. He is not very cooperative with exam, so it is somewhat difficult to perform. Pupils are equal and reactive. He can follow simple commands. Cranial nerves otherwise intact. On motor exam I do not see any gross deficits at the present time with normal strength in both arms and legs. CT of the head today is normal. LABORATORY DATA White count 9400, hemoglobin 15.1, hematocrit 45.8%, platelet count is 182,080. PT 12.1, INR 1.2, APTT 25. Sodium was 136, potassium 3.8, chloride 101, CO2 is 26.9. The BUN is 15, creatinine 1.18, GFR is 82, glucose 295, calcium is 8, AST 29, ALT is 27. IMPRESSION Suspect this may have been a TIA which now has resolved, cardioembolic is the most likely etiology. RECOMMENDATIONS 1. Would recommend resuming his Eliquis 5 mg b.i.d. and continue to monitor neuro checks overnight. 2. He was recently had carotid studies; these to not need to be repeated. ADDENDUM: Because of the complete resolution of his symptoms, he is not a TPA candidate. MD YASMINE Smith/EFRAIN /5:38 PM /8:17 AM MTDD
[2017-05-05 08:51] LABS: ALBUMIN 2.6 GM/DL (3.4-5.0); ALT (GPT) 27 U/L (12-78); AST (GOT) 22 U/L (15-37); BICARBONATE 28.2 MEQ/L (21.0-32.0); BLOOD UREA NITROGEN 15 MG/DL (7-18); CALCIUM 8.5 MG/DL (8.5-10.1); CHLORIDE 102 MEQ/L (98-107); CREATININE 1.09 MG/DL (0.60-1.30); GLOMERULAR FILTRATION RATE 90 ML/MIN (>89); GLUCOSE,RANDOM 162 MG/DL (74-106); SODIUM (NA) 140 MEQ/L (136-145)
[2017-05-05] MEDS: SODIUM CHLORIDE 0.9% FLUSH 10 ML FLUSH IV FLUSH SCH (09:00)
[2017-05-05] MEDS ORDERED: SPIRONOLACTONE 25 MG TAB PO SCH (09:00)
[2017-05-05] MEDS ORDERED: FUROSEMIDE 40 MG TAB PO SCH (09:00)
[2017-05-05 09:12] LABS: ALKALINE PHOSPHATASE 186 U/L (45-117); TOTAL BILIRUBIN ADULT 1.3 MG/DL (0.2-1.0); TOTAL PROTEIN 5.6 GM/DL (6.4-8.2)
[2017-05-05 09:15] VITALS: BP 122/90; PULSE 86; RESP 18; TEMP 97.8; O2SAT 100
[2017-05-05] MEDS: DOCUSATE SODIUM 50 MG/SENNA 8.6 MG TAB PO SCH (09:21)
[2017-05-05] MEDS: GABAPENTIN 100 MG CAP PO SCH ×2 (09:21→13:41)
[2017-05-05] MEDS: ASPIRIN 81 MG CHEW TAB PO SCH (09:21)
[2017-05-05] MEDS: APIXABAN 5 MG TABLET PO SCH (09:21)
[2017-05-05] MEDS ORDERED: IOHEXOL 350 MG/ML 10 ML VIAL (for RAD DIAG) IVCONTRAST ONE (11:19)
--- NOTE | 2017-05-05 11:40 | RADRPT ---
EXAM DATE/TIME: 05/05/2017 10:39 [facility] COMPARISON: CT BRAIN CEREBRAL PERF ANALYSIS W/3D, April 24, 2017, 15:42. CTA BRAIN W 3D RECON, April 24 8, 15:42. INDICATIONS : Evaluate for embolism, abnormal speech IV CONTRAST: 65 cc Omnipaque 350 (iohexol) IV ; Cumulative dose for multiple exams. RADIATION DOSE: 9.85 CTDIvol (mGy) ; Combined studies MEDICAL HISTORY : Cardiovascular disease. Diabetes SURGICAL HISTORY : Pacemaker. ENCOUNTER: Initial ACUITY: 1 day PAIN SCALE: 3/10 LOCATION: cranial TECHNIQUE: Volumetric scanning was performed using a multi-row detector CT scanner. The data was post processed with a variety of visualization algorithms including full volume maximum intensity projection, multi -planar sliding thin slab reformation, curved planar reformation, and surface rendering techniques. Using automated exposure control and adjustment of the mA and/or kV according to patient size, radiat ion dose was kept as low as reasonably achievable to obtain optimal diagnostic quality images. DICO M format image data is available electronically for review and comparison. FINDINGS: Moderate intracranial atherosclerotic changes are evident. No large vessel occlusion. No aneurysm o r vascular displacement. CONCLUSION: No major branch vessel occlusion. Caleb Vazquez MD FACR on May 05, 2017 at 11:36 Board Certified Radiologist. This report was verified electronically.
--- NOTE | 2017-05-05 12:06 | RADRPT ---
EXAM DATE/TIME: 05/05/2017 10:39 [facility] COMPARISON: No previous studies available for comparison. INDICATIONS : Evaluate for embolism, abnormal speech IV CONTRAST: 65 cc Omnipaque 350 (iohexol) IV ; Cumulative dose for multiple exams. RADIATION DOSE: 9.85 CTDIvol (mGy) ; Combined studies MEDICAL HISTORY : Cardiovascular disease. Diabetes SURGICAL HISTORY : Pacemaker. ENCOUNTER: Initial ACUITY: 1 day PAIN SCALE: 3/10 LOCATION: Bilateral neck Elevated flow velocities and ICA/CCA ratios have been found to correlate with increased degrees of vessel stenosis, calculated as percentage of diameter relative to a normal segment of distal ICA/CCA. TECHNIQUE: Volumetric scanning was performed using a multirow detector CT scanner. The data was post processed with a variety of visualization algorithms including full-volume maximum intensity projection, multip lanar sliding thin-slab reformation, curved-planar reformation, and surface-rendering techniques. Us ing automated exposure control and adjustment of the mA and/or kV according to patient size, radiatio n dose was kept as low as reasonably achievable to obtain optimal diagnostic quality images. DICOM f ormat image data is available electronically for review and comparison. FINDINGS: AORTIC ARCH: There is a three-vessel origin of the great vessels from the aorta. No evidence of ostial narrowing. RIGHT CAROTID: The common carotid artery is intact. The carotid bulb has a normal configuration without ulceration o r narrowing. The internal carotid artery lumen is smooth without stenosis. The external carotid saida ry is intact. LEFT CAROTID: The common carotid artery is intact. The carotid bulb has a normal configuration without ulceration or narrowing. The internal carotid artery lumen is smooth without stenosis. The external carotid ar gerhard is intact. VERTEBRALS: The vertebral arteries have a symmetric diameter. No stenotic lesions are seen. Small pleural effusions. CONCLUSION: Normal carotid arteries. Toro Khoury MD on May 05, 2017 at 12:02 Board Certified Radiologist. This report was verified electronically.
[2017-05-05 12:18] VITALS: BP 113/80; PULSE 73; RESP 18; TEMP 97.7; O2SAT 98
--- NOTE | 2017-05-05 13:14 | PD.PSY.CON ---
Provisional Diagnosis Admission Date May 04, 2017 at 18:19 Terrell I. Major depressive disorder, single episode, severe, with psychosis, cannabis use disorder Terrell II. Deferred Terrell III. Diabetes, hypertension, CHF Terrell IV. Family conflicts Terrell V. 45 History of Present Illness Service Psychiatry Consult Requested By ER team Reason for Consult Depression Primary Care Physician Unknown HPI The patient is a 42 year old man, unemployed, supported by [facility] , , domiciled with her sister in [facility], he has no previous psychiatric history, no previous psychiatric admissions, no previous suicidal attempts, cannabis use disorder, I saw the patient once in a psychiatric consult due to adjustment disorder with depression in January 2017, he has medical history of CHF, diabetes and hypertension, who brought into ER after a Bartholomew act for running in the street. His sister reported slurred speech and he was brought to the hospital for both Bartholomew act and evaluation of slurred speech. Patient was consulted to psychiatry to address suicidal attempt. Chart was reviewed. Case discussed with nurse in charge and medical student Dr. Lugo. On psychiatric evaluation today the patient is calm, cooperative, he says that he has been very depressed in the last days. Patient says that he has nothing to live for. Yesterday he had an argument with his sister and he felt he could not take it anymore and he walked into traffic with the desired of didn't hit by a car. The patient reports that he feels that he has Mo re bags in my back of what I can carry". Patient also reports "feeling that everybody is is against me, looking at me and talking about me". He feels very guilty because his son is in halfway. He denies visual and auditory hallucinations. He is oriented 3, no attention deficit. No fluctuation of consciousness. There is no evidence of paranoia, loosening of associations, agitation or aggressive behavior. He reports daily use of marijuana, denies the use of other illegal drugs and alcohol. Review of Systems Constitutional: COMPLAINS OF: Fatigue Endocrine: DENIES: Heat/cold intolerance, Polydipsia, Polyuria, Polyphagia Eyes: DENIES: Blurred vision, Diplopia, Eye inflammation, Eye pain, Vision loss , Photosensitivity, Double Vision Ears, nose, mouth, throat: DENIES: Tinnitus, Hearing loss, Vertigo, Nasal discharge, Oral lesions, Throat pain, Hoarseness, Ear Pain, Running Nose, Epistaxis, Sinus Pain, Toothache, Odynophagia Respiratory: COMPLAINS OF: Cough, Shortness of breath Cardiovascular: DENIES: Chest pain, Palpitations, Syncope, Dyspnea on Exertion , PND, Lower Extremity Edema, Orthopnea, Claudication Gastrointestinal: DENIES: Abdominal pain, Black stools, Bloody stools, Constipation, Diarrhea, Nausea, Vomiting, Difficulty Swallowing, Anorexia Genitourinary: DENIES: Sexual dysfunction, Urinary frequency, Urinary incontinence, Urgency, Hematuria, Dysuria, Nocturia, Penile Discharge, Testicular Pain, Testicular Swelling Musculoskeletal: DENIES: Joint pain, Muscle aches, Stiffness, Joint Swelling, Back pain, Neck pain Integumentary: DENIES: Abnormal pigmentation, Nail changes, Pruritus, Rash Hematologic/lymphatic: DENIES: Bruising, Lymphadenopathy Immunologic/allergic: DENIES: Eczema, Urticaria Neurologic: DENIES: Abnormal gait, Headache, Localized weakness, Paresthesias, Seizures, Speech Problems, Tremor, Poor Balance Psychiatric: COMPLAINS OF: Depression, Suicidal Ideation, DENIES: Anxiety, Confusion, Mood changes, Hallucinations, Agitation, Homicidal Ideation, Delusions Past Family Social History Coded Allergies: hydromorphone (Verified Allergy, Severe, Hives, 05/03/17) phenobarbital (Unverified Allergy, Unknown, 05/03/17) Active Scripts Carvedilol (Coreg) 12.5 Mg Tab, 12.5 MG PO BID for Blood Pressure Management, # 60 TAB 3 Refills Prov:Nicole Miramontes MD 05/03/17 Atorvastatin (Atorvastatin) 80 Mg Tab, 80 MG PO HS for Cholesterol Management, # 30 TAB 3 Refills Prov:Nicole Miramontes MD 05/03/17 Apixaban (Eliquis) 5 Mg Tab, 5 MG PO BID for Prevent Blood Clot, #60 TAB 3 Refills Prov:Nicole Miramontes MD 05/03/17 Walker with Front Wheels (Walker with Front Wheels) 1 Mis Mis, EA .XX DIRECTED, #1 0 Refills Prov:Toro Burnett MD 04/28/[address] (Aspirin 81) 81 Mg Tabdr, 81 MG PO DAILY for Blood Clot Prevention, # 30 TAB 0 Refills Prov:Nicci Garland DO 03/27/17 Insulin Detemir Inj (Levemir Inj) 1,000 unit/ 10 ML Vial, 30 UNITS SQ HS for Blood Sugar Management, #30 VIAL 0 Refills Do not mix with any other Insulin. Prov:GarlandNicci DO 03/27/17 Lisinopril (Lisinopril) 5 Mg Tab, 5 MG PO DAILY for Blood Pressure Management, # 30 TAB 0 Refills Prov:DadaNicci Cande DO 03/27/17 Spironolactone (Spironolactone) 25 Mg Tab, 25 MG PO DAILY for Blood Pressure Management, #30 TAB 0 Refills Prov:GarlandNicci DO 03/27/17 Furosemide (Lasix) 40 Mg Tab, 40 MG PO DAILY for HEART FAILURE, #30 TAB 0 Refills Prov:DadaNicci Cande DO 03/27/17 Trazodone (Trazodone) 50 Mg Tab, 50 MG PO HS for Control Depression, #30 TAB 0 Refills Prov:Sol Martini 02/08/17 Gabapentin (Gabapentin) 100 Mg Cap, 100 MG PO TID for diabetic neuropathy , #90 CAP Prov:Saima Pearson MD 01/13/17 Discontinued Scripts Carvedilol (Coreg) 12.5 Mg Tab, 12.5 MG PO BID for Blood Pressure Management, # 60 TAB 3 Refills Prov:Toro Burnett MD 04/27/17 Atorvastatin (Atorvastatin) 80 Mg Tab, 80 MG PO HS for Cholesterol Management, # 30 TAB 3 Refills Prov:Toro Burnett MD 04/27/17 Apixaban (Eliquis) 5 Mg Tab, 5 MG PO BID for Prevent Blood Clot, #60 TAB 3 Refills Prov:Toro Burnett MD 04/27/17 Current Medications Medications (Trade) Dose Ordered Sig/Stacy Route Start Time Stop Time Status Last Admin Sodium Chloride 1,000 ml @ 70 mls/hr [id number] IV 05/04/17 17:44 05/04/17 23:41 (Aspirin Chew) 81 mg DAILY PO 05/04/17 20:00 05/05/17 09:21 (Eliquis) 5 mg BID PO 05/04/17 21:00 05/05/17 09:21 (NS Flush) 2 ml UNSCH PRN IV FLUSH 05/04/17 20:00 (NS Flush) 2 ml BID IV FLUSH 05/04/17 21:00 (Narcan Inj) 0.4 mg UNSCH PRN IV PUSH 05/04/17 20:00 (Magalie-Colace) 1 tab BID PO 05/04/17 21:00 05/05/17 09:21 (Milk Of Magnesia Liq) 30 ml Q12H PRN PO 05/04/17 20:00 (Senokot) 17.2 mg Q12H PRN PO 05/04/17 20:00 (Dulcolax Supp) 10 mg DAILY PRN RECTAL 05/04/17 20:00 (Lactulose Liq) 30 ml DAILY PRN PO 05/04/17 20:00 (D50w (Vial) Inj) 50 ml UNSCH PRN IV PUSH 05/04/17 20:45 (Glucagon Inj) 1 mg UNSCH PRN OTHER 05/04/17 20:45 (NovoLOG SUPPLEMENTAL SCALE) 1 ACHS SLIDING SCALE SQ 05/04/17 21:00 05/04/17 23:40 (Lipitor) 80 mg HS PO 05/04/17 21:00 05/04/17 23:06 (Lasix) 40 mg DAILY PO 05/05/17 09:00 05/05/17 09:21 (Neurontin) 100 mg TID PO 05/05/17 09:00 05/05/17 09:21 (Aldactone) 25 mg DAILY PO 05/05/17 09:00 05/05/17 09:21 Family Psych History Patient sisters is bipolar Social History Patient was born and raised in [place], he lives in [place] with his sister, his , he has a son who is incarcerated, drug, supported by [facility], his highest level of education is high school Physical Exam Patient has marked psychomotor retardation, with lower extremity edema, but no tremors, no EPS, Vital Signs Vital Signs Date Time Temp Pulse Resp B/P (MAP) Pulse Ox O2 Delivery O2 Flow Rate FiO2 05/05/17 12:18 97.7 73 18 113/80 (91) 98 05/05/17 00:42 21 05/04/17 19:08 Room Air I/O 05/05/17 05/05/17 05/06/17 08:00 16:00 00:00 Intake Total 240 ml Output Total 350 ml Balance -110 ml Lab Results Test 05/04/17 14:50 05/04/17 19:19 05/04/17 21:44 05/05/17 00:49 White Blood Count 9.4 TH/MM3 Red Blood Count 7.00 MIL/MM3 Hemoglobin 15.1 GM/DL Hematocrit 45.8 % Mean Corpuscular Volume 65.4 FL Mean Corpuscular Hemoglobin 21.6 PG Mean Corpuscular Hemoglobin Concent 33.0 % Red Cell Distribution Width 20.8 % Platelet Count 182 TH/MM3 Mean Platelet Volume 9.4 FL Neutrophils (%) (Auto) 84.6 % Lymphocytes (%) (Auto) 10.7 % Monocytes (%) (Auto) 4.0 % Eosinophils (%) (Auto) 0.3 % Basophils (%) (Auto) 0.4 % Neutrophils # (Auto) 8.0 TH/MM3 Lymphocytes # (Auto) 1.0 TH/MM3 Monocytes # (Auto) 0.4 TH/MM3 Eosinophils # (Auto) 0.0 TH/MM3 Basophils # (Auto) 0.0 TH/MM3 CBC Comment DIFF FINAL Differential Comment Prothrombin Time 12.1 SEC Prothromb Time International Ratio 1.2 RATIO Activated Partial Thromboplast Time 25.0 SEC Blood Urea Nitrogen 15 MG/DL Creatinine 1.18 MG/DL Random Glucose 295 MG/DL 330 MG/DL Total Protein 6.3 GM/DL Albumin 2.8 GM/DL Calcium Level 8.0 MG/DL Alkaline Phosphatase 210 U/L Aspartate Amino Transf (AST/SGOT) 29 U/L Alanine Aminotransferase (ALT/SGPT) 27 U/L Total Bilirubin 1.5 MG/DL Sodium Level 136 MEQ/L Potassium Level 3.8 MEQ/L Chloride Level 101 MEQ/L Carbon Dioxide Level 26.9 MEQ/L Anion Gap 8 MEQ/L Estimat Glomerular Filtration Rate 82 ML/MIN Hemoglobin A1c 11.6 % Troponin I 0.02 NG/ML 0.02 NG/ML Urine Color LIGHT-YELLOW Urine Turbidity CLEAR Urine pH 6.5 Urine Specific Magdalena 1.004 Urine Protein NEG mg/dL Urine Glucose (UA) 300 mg/dL Urine Ketones NEG mg/dL Urine Occult Blood NEG Urine Nitrite NEG Urine Bilirubin NEG Urine Urobilinogen LESS THAN 2.0 MG/DL Urine Leukocyte Esterase NEG Urine WBC LESS THAN 1 /hpf Microscopic Urinalysis Comment CATH-CULT NOT IND Urine Opiates Screen NEG Urine Barbiturates Screen NEG Urine Amphetamines Screen NEG Urine Benzodiazepines Screen NEG Urine Cocaine Screen NEG Urine Cannabinoids Screen POS B-Type Natriuretic Peptide 729 PG/ML Test 05/05/17 07:15 Blood Urea Nitrogen 15 MG/DL Creatinine 1.09 MG/DL Random Glucose 162 MG/DL Total Protein 5.6 GM/DL Albumin 2.6 GM/DL Calcium Level 8.5 MG/DL Alkaline Phosphatase 186 U/L Aspartate Amino Transf (AST/SGOT) 22 U/L Alanine Aminotransferase (ALT/SGPT) 27 U/L Total Bilirubin 1.3 MG/DL Sodium Level 140 MEQ/L Potassium Level 3.5 MEQ/L Chloride Level 102 MEQ/L Carbon Dioxide Level 28.2 MEQ/L Anion Gap 10 MEQ/L Estimat Glomerular Filtration Rate 90 ML/MIN Triglycerides Level 81 MG/DL Cholesterol Level 100 MG/DL LDL Cholesterol 57 MG/DL HDL Cholesterol 26.6 MG/DL Cholesterol/HDL Ratio 3.75 RATIO Mental Status Examination Appearance: Appropriate Consciousness: Alert Orientation: x4 Motor Activity: Normal gait Speech: Unremarkable Language: Adequate Fund of Knowledge: Adequate Attention and Concentration: Adequate Memory: Unremarkable Mood: Sad Affect: Flat Thought Process & Associations: Intact Thought Content: Appropriate Hallucination Type: None Delusion Type: Paranoid Suicidal Ideation: Yes Suicidal Plan: No Suicidal Intention: No Homicidal Ideation: No Homicidal Plan: No Homicidal Intention: No Insight: Poor Judgment: Poor Assessment & Plan Problem List: (1) Major depressive disorder, single episode ICD Codes: F32.9 - Major depressive disorder, single episode, unspecified Assessment & Plan: On psychiatric evaluation today the patient presents objectively depressed, with marked psychomotor retardation, increased fatigue, sense of worthlessness, helplessness, hopelessness, guiltiness and suicidal thoughts with a plan of walking into traffic. The patient has already tried to attend to commit suicide by jumping into traffic this morning, recent because he was Bartholomew acted. Patient reports that he has been very distressed, with some family problems, economical problems, deterioration of physical condition, and also feeling very guilty because he is 19 year old also is in halfway. Patient also reports feeling paranoid toward people around him. At this moment the patient has an increased risk of danger to himself, and he needs psychiatric admission for stabilization. I will start Zoloft 25 mg daily. Patient might benefit of a low dose of antipsychotic later on. Transfer to psychiatry once medically appropriate. Assessment & Plan Estimated LOS: days Problem Qualifiers (1) Major depressive disorder, single episode: Demetrius Goldstein MD May 05, 2017 13:14
[2017-05-05] MEDS ORDERED: SERTRALINE HCL 50 MG TAB PO SCH (13:15)
[2017-05-05] MEDS ORDERED: PILL SPLITTER OTHER PRN (13:15)
--- NOTE | 2017-05-05 14:06 | HHI.DCPOC ---
Discharge Care Plan Diagnosis: (1) Hypertension (2) DM type 2 (diabetes mellitus, type 2) (3) Suicidal behavior (4) CHF (congestive heart failure) Goals to Promote Your Health * To prevent worsening of your condition and complications * To maintain your health at the optimal level Directions to Meet Your Goals Take your medications as prescribed Follow your dietary instruction Follow activity as directed Keep your appointments as scheduled Take your immunizations and boosters as scheduled If your symptoms worsen call your PCP, if no PCP go to Urgent Care Center or Emergency Room Smoking is Dangerous to Your Health. Avoid second hand smoke Call the 24-hour hour crisis hotline for domestic abuse at Manish Goddard MD R1 May 05, 2017 14:06
--- NOTE | 2017-05-05 14:42 | EKG ---
Date Performed: 05/04/2017 Time Performed: 21:27:24 PTAGE: 42 years EKG: ELECTRONIC VENTRICULAR PACEMAKER Since previous tracing, no significant change noted ABNORM AL RHYTHM ECG PREVIOUS TRACING : 05/03/2017 03.22 DOCTOR: Ewa Fletcher Interpretating Date/Time 05/05/2017 14:40:44
--- NOTE | 2017-05-05 18:36 | ECHRPT ---
Indication: CVA/TIA CONCLUSIONS The left ventricular systolic function is severely reduced with an estimated ejection fraction less than 20%. Mildly dilated left ventricle. There is global left ventricular dysfunction. The right ventricular systoilc function is moderately decreased. Trace mitral valve regurgitation. There is mild tricuspid valve regurgitation. BP: 110 / 82 HR: 86 Rhythm: MEASUREMENTS (Male / Female) Normal Values Technical Quality: 2D ECHO LV Diastolic Diameter PLAX 5.5 cm 4.2 - 5.9 / 3.9 - 5.3 cm LV Systolic Diameter PLAX 5.0 cm IVS Diastolic Thickness 1.0 cm 0.6 - 1.0 / 0.6 - 0.9 cm LVPW Diastolic Thickness 1.0 cm 0.6 - 1.0 / 0.6 - 0.9 cm LV Relative Wall Thickness 0.4 RV Internal Dim ED PLAX 2.9 cm LVOT Diameter 1.7 cm LA Systolic Diameter LX 4.0 cm 3.0 - 4.0 / 2.7 - 3.8 cm LV Ejection Fraction MOD 4C 19.0 % LV Cardiac Index MOD 4C 1250.4 cm/minm LV Ejection Fraction 4C AL 19.8 % LV Cardiac Index 4C AL 1345.4 cm/minm M-MODE Aortic Root Diameter MM 2.5 cm LA Systolic Diameter MM 3.9 cm LA Ao Ratio MM 1.6 AV Cusp Separation MM 1.4 cm DOPPLER MV Area PHT 5.8 cm LV E' Lateral Velocity 4.9 cm/s LV E' Septal Velocity 2.3 cm/s TR Peak Velocity 299.0 cm/s TR Peak Gradient 35.8 mmHg Right Atrial Pressure 10.0 mmHg Pulmonary Artery Systolic Pressu 45.8 mmHg Right Ventricular Systolic Press 45.8 mmHg PV Peak Velocity 59.7 cm/s PV Peak Gradient 1.4 mmHg FINDINGS LEFT VENTRICLE The left ventricular systolic function is severely reduced with an estimated ejection fraction less than 20%. Mildly dilated left ventricle. Wall thickness is normal. There is global left ventricular dysfunction. RIGHT VENTRICLE The right ventricle is mildly dilated. The right ventricular systoilc function is moderately decreased. A pacemaker wire is noted. LEFT ATRIUM The left atrial size is moderately dilated. RIGHT ATRIUM The right atrial size is mildly dilated. ATRIAL SEPTUM Normal atrial septal thickness. AORTA The aortic root and proximal ascending aorta are normal in size on limited imaging. MITRAL VALVE Structurally normal mitral valve. Trace mitral valve regurgitation. AORTIC VALVE Trileaflet aortic valve. No aortic valve stenosis or regurgitation. TRICUSPID VALVE Structurally normal tricuspid valve. There is mild tricuspid valve regurgitation. The estimated pulmonary arterial pressure is 45.8 mmHg. PULMONARY VALVE Trivial pulmonary valve regurgitation. VESSELS The inferior vena cava is normal in size. PERICARDIUM No pericardial effusion. Ezra Lane DO (Electronically Signed) Final Date:05 May 2017 18:35
[2017-05-06] MEDS ORDERED: LISINOPRIL 5 MG TAB PO SCH (09:00)
== END 2017-05-05 16:37 | disposition home or self-care (01) ==
LOC: NEPC 14:31 → NEDA 18:19 → NEPGCP 20:57
PROVIDERS: ADMIT Family Medicine; ATTEND Family Medicine
DX: I11.0 Hypertensive heart disease with heart failure (principal); I50.9 Heart failure, unspecified; R45.851 Suicidal ideations; E11.9 Type 2 diabetes mellitus without complications; R29.818 Other symptoms and signs involving the nervous system; R47.81 Slurred speech; R07.9 Chest pain, unspecified; I25.2 Old myocardial infarction; I42.0 Dilated cardiomyopathy; E78.5 Hyperlipidemia, unspecified; I25.10 Atherosclerotic heart disease of native coronary artery without angina pectoris; R06.02 Shortness of breath; F41.9 Anxiety disorder, unspecified; R60.9 Edema, unspecified; F12.90 Cannabis use, unspecified, uncomplicated; R09.89 Other specified symptoms and signs involving the circulatory and respiratory systems; F32.9 Major depressive disorder, single episode, unspecified; Z79.82 Long term (current) use of aspirin; Z79.01 Long term (current) use of anticoagulants; Z95.810 Presence of automatic (implantable) cardiac defibrillator; Z95.5 Presence of coronary angioplasty implant and graft; Z87.891 Personal history of nicotine dependence; Z82.49 Family history of ischemic heart disease and other diseases of the circulatory system; Z79.899 Other long term (current) drug therapy
CPT/HCPCS: 70450; 70496; 70498; 71045; 71046; 80053; 80061; 80307; 81001; 82947; 82948; 83036; 83880; 84484; 85025; 85610; 85730; 93005; 93306; 93880; 96361; 96372; 96374; 96375; 97162; 97166; 99285; G0378; G8987; G8988; J1630; J1815; J2060; J7030; Q0163; Q9967

== ENCOUNTER 2017-05-05 16:43 | Inpatient (IN) | payer MEDICARE, OTHER ==
[~2017-05-05] VITALS: Ht 170.2 cm; Wt 90.5 kg
[2017-05-05 17:08] VITALS: BP 122/89; PULSE 99; RESP 18; TEMP 97.6; O2SAT 98
--- NOTE | 2017-05-05 18:52 | HHI.HP ---
Provisional Diagnosis Admission Date May 05, 2017 at 16:58 [place] I. Major depressive disorder, severe, with psychosis Certification of Person's Competence To Provide Express and Informed Consent I have personally examined Ady Abad , a person being served at [facility] on, May 05, 2017 18:51. Express and informed consent means consent voluntarily given in writing, by a competent person, after sufficient explanation and disclosure of the subject matter involved to enable the person to make a knowing and willful decision without any element of force, fraud, deceit, duress, or other form of constraint or coercion. This person is 18 years of age or older, is not now known to be incompetent to consent to treatment with a guardian advocate, and does not have a health care surrogate or proxy currently making medical treatment decisions. I have found this person to be one of the following: [] Competent to provide express and informed consent, as defined above, for voluntary admission to this facility and is competent to provide express and informed consent for treatment. He/she has the consistent capacity to make well reasoned, willful, and knowing decisions concerning his or her medical or mental health treatment. The person fully and consistently understands the purpose of the admission for examination/placement and is fully capable of personally exercising all rights [place] Incompetent to provide express and informed consent to voluntary admission, and this is incompetent to provide express and informed consent to treatment. The person must be transferred to involuntary status and a petition for a guardian advocate filed with the Circuit Court. [x] Refusing to provide express and informed consent to voluntary admission but is competent to provide express and informed consent for treatment. The person must be discharged or transferred to involuntary status. Form shall be completed within 24 hours of a person's arrival at the receiving facility and filed in the clinical record of each person: 1. Admitted on a voluntary basis 2. Permitted to provide express and informed consent to his/her own treatment 3. Allowed to transfer from involuntary to voluntary status 4. Prior to permitting a person to consent to his or her own treatment after having been previously found incompetent to consent to treatment. History of Present Illness Capacity: Has Capacity HPI The patient is a 42 year old man, unemployed, supported by [facility] , , domiciled with her sister in [facility], he has no previous psychiatric history, no previous psychiatric admissions, no previous suicidal attempts, cannabis use disorder, I saw the patient once in a psychiatric consult due to adjustment disorder with depression in January 2017, he has medical history of CHF, diabetes and hypertension, who brought into ER after a Bartholomew act for running in the street. His sister reported slurred speech and he was brought to the hospital for both Bartholomew act and evaluation of slurred speech. Patient was consulted to psychiatry to address suicidal attempt. Chart was reviewed. Case discussed with nurse in charge and medical student Dr. Lugo. On psychiatric evaluation today the patient is calm, cooperative, he says that he has been very depressed in the last days. Patient says that he has nothing to live for. Yesterday he had an argument with his sister and he felt he could not take it anymore and he walked into traffic with the desired of didn't hit by a car. The patient reports that he feels that he has Mo re bags in my back of what I can carry". Patient also reports "feeling that everybody is is against me, looking at me and talking about me". He feels very guilty because his son is in group home. He denies visual and auditory hallucinations. He is oriented 3, no attention deficit. No fluctuation of consciousness. There is no evidence of paranoia, loosening of associations, agitation or aggressive behavior. He reports daily use of marijuana, denies the use of other illegal drugs and alcohol. Review of Systems Constitutional: DENIES: Diaphoretic episodes, Fatigue, Fever, Weight gain, Weight loss, Chills, Dizziness, Change in appetite, Night Sweats Endocrine: DENIES: Heat/cold intolerance, Polydipsia, Polyuria, Polyphagia Eyes: DENIES: Blurred vision, Diplopia, Eye inflammation, Eye pain, Vision loss , Photosensitivity, Double Vision Ears, nose, mouth, throat: DENIES: Tinnitus, Hearing loss, Vertigo, Nasal discharge, Oral lesions, Throat pain, Hoarseness, Ear Pain, Running Nose, Epistaxis, Sinus Pain, Toothache, Odynophagia Respiratory: COMPLAINS OF: Shortness of breath, DENIES: Apneas, Cough, Snoring , Wheezing, Hemoptysis, Sputum production Cardiovascular: DENIES: Chest pain, Palpitations, Syncope, Dyspnea on Exertion , PND, Lower Extremity Edema, Orthopnea, Claudication Gastrointestinal: DENIES: Abdominal pain, Black stools, Bloody stools, Constipation, Diarrhea, Nausea, Vomiting, Difficulty Swallowing, Anorexia Genitourinary: DENIES: Sexual dysfunction, Urinary frequency, Urinary incontinence, Urgency, Hematuria, Dysuria, Nocturia, Penile Discharge, Testicular Pain, Testicular Swelling Musculoskeletal: DENIES: Joint pain, Muscle aches, Stiffness, Joint Swelling, Back pain, Neck pain Integumentary: DENIES: Abnormal pigmentation, Nail changes, Pruritus, Rash Hematologic/lymphatic: DENIES: Bruising, Lymphadenopathy Immunologic/allergic: DENIES: Eczema, Urticaria Neurologic: DENIES: Abnormal gait, Headache, Localized weakness, Paresthesias, Seizures, Speech Problems, Tremor, Poor Balance Psychiatric: COMPLAINS OF: Depression, Suicidal Ideation, DENIES: Anxiety, Confusion, Mood changes, Hallucinations, Agitation, Homicidal Ideation, Delusions Substance Abuse History Drugs/Alcohol past 12 months Cannabis Past Family Social History Coded Allergies: hydromorphone (Verified Allergy, Severe, Hives, 05/03/17) phenobarbital (Unverified Allergy, Unknown, 05/03/17) Active Scripts Atorvastatin (Atorvastatin) 80 Mg Tab, 80 MG PO HS for Cholesterol Management, # 30 TAB 3 Refills Prov:Nicole Miramontes MD 05/03/17 Apixaban (Eliquis) 5 Mg Tab, 5 MG PO BID for Prevent Blood Clot, #60 TAB 3 Refills Prov:Nicole Miramontes MD 05/03/17 Walker with Front Wheels (Walker with Front Wheels) 1 Mis Mis, EA .XX DIRECTED, #1 0 Refills Prov:Toro Burnett MD 04/28/[address] (Aspirin 81) 81 Mg Tabdr, 81 MG PO DAILY for Blood Clot Prevention, # 30 TAB 0 Refills Prov:Nicci Garland DO 03/27/17 Insulin Detemir Inj (Levemir Inj) 1,000 unit/ 10 ML Vial, 30 UNITS SQ HS for Blood Sugar Management, #30 VIAL 0 Refills Do not mix with any other Insulin. Prov:Nicci Garland DO 03/27/17 Lisinopril (Lisinopril) 5 Mg Tab, 5 MG PO DAILY for Blood Pressure Management, # 30 TAB 0 Refills Prov:Nicci Garland DO 03/27/17 Spironolactone (Spironolactone) 25 Mg Tab, 25 MG PO DAILY for Blood Pressure Management, #30 TAB 0 Refills Prov:Nicci Garland DO 03/27/17 Furosemide (Lasix) 40 Mg Tab, 40 MG PO DAILY for HEART FAILURE, #30 TAB 0 Refills Prov:Nicci Garland DO 03/27/17 Trazodone (Trazodone) 50 Mg Tab, 50 MG PO HS for Control Depression, #30 TAB 0 Refills Prov:Sol Martini 02/08/17 Gabapentin (Gabapentin) 100 Mg Cap, 100 MG PO TID for diabetic neuropathy , #90 CAP Prov:Saima Pearson MD 01/13/17 Discontinued Scripts Carvedilol (Coreg) 12.5 Mg Tab, 12.5 MG PO BID for Blood Pressure Management, # 60 TAB 3 Refills Prov:Nicole Miramontes MD 05/03/17 Carvedilol (Coreg) 12.5 Mg Tab, 12.5 MG PO BID for Blood Pressure Management, # 60 TAB 3 Refills Prov:Toro Burnett MD 04/27/17 Atorvastatin (Atorvastatin) 80 Mg Tab, 80 MG PO HS for Cholesterol Management, # 30 TAB 3 Refills Prov:Toro Burnett MD 04/27/17 Apixaban (Eliquis) 5 Mg Tab, 5 MG PO BID for Prevent Blood Clot, #60 TAB 3 Refills Prov:Toro Burnett MD 04/27/17 Family Psych History Sister is bipolar Social History Patient was born and raised in [place], he lives in [place] with his sister, his , he has a son who is incarcerated, drug, supported by [facility], his highest level of education is high school Patient's Strengths (min. 2) Verbal communication Physical Exam Vital Signs Vital Signs Date Time Temp Pulse Resp B/P (MAP) Pulse Ox O2 Delivery O2 Flow Rate FiO2 05/05/17 17:08 97.6 99 18 122/89 (100) 98 Mental Status Examination Appearance: Appropriate Consciousness: Alert Orientation: x4 Motor Activity: Normal gait Speech: Unremarkable Language: Adequate Fund of Knowledge: Adequate Attention and Concentration: Adequate Memory: Unremarkable Mood: Sad Affect: Sad Thought Process & Associations: Intact Thought Content: Appropriate Hallucination Type: None Delusion Type: Paranoid Suicidal Ideation: Yes Suicidal Plan: No Suicidal Intention: No Homicidal Ideation: No Homicidal Plan: No Homicidal Intention: No Insight: Poor Judgment: Poor Assessment & Plan Problem List: (1) Major depressive disorder, single episode ICD Codes: F32.9 - Major depressive disorder, single episode, unspecified Assessment & Plan: On psychiatric evaluation today the patient presents objectively depressed, with marked psychomotor retardation, increased fatigue, sense of worthlessness, helplessness, hopelessness, guiltiness and suicidal thoughts with a plan of walking into traffic. The patient has already tried to attend to commit suicide by jumping into traffic this morning, recent because he was Bartholomew acted. Patient reports that he has been very distressed, with some family problems, economical problems, deterioration of physical condition, and also feeling very guilty because he is 19 year old also is in group home. Patient also reports feeling paranoid toward people around him. At this moment the patient has an increased risk of danger to himself, and he needs psychiatric admission for stabilization. I will start Zoloft 25 mg daily. Patient might benefit of a low dose of antipsychotic later on. intervention for psychosocial assessment, counseling and to coordinate a safe discharge. Assessment & Plan Estimated LOS: days Problem Qualifiers (1) Major depressive disorder, single episode: Demetrius Goldstein MD May 05, 2017 18:52
[2017-05-05] MEDS ORDERED: ACETAMINOPHEN 325 MG TAB PO PRN (19:00)
[2017-05-05] MEDS ORDERED: ALUMINUM/MAGNESIUM/SIMETH 30 ML CUP PO PRN (19:00)
[2017-05-05] MEDS ORDERED: LORazepam 0.5 MG TAB PO PRN (19:00)
[2017-05-05] MEDS ORDERED: LORazepam 1 MG TAB PO PRN (19:00)
[2017-05-05] MEDS ORDERED: LORazepam 2 MG/ML VIAL IM PRN ×2 (19:00)
[2017-05-05] MEDS ORDERED: MAGNESIUM HYDROXIDE SUSP 30 ML CUP PO PRN (19:00)
[2017-05-05] MEDS: NICOTINE 21 MG/24 HR PATCH T-DERMAL SCH (20:00)
[2017-05-05] MEDS: APIXABAN 5 MG TABLET PO SCH (21:00)
[2017-05-05] MEDS: ATORVASTATIN 80 MG TAB PO SCH (21:00)
[2017-05-05] MEDS: REMOVE OLD PATCH T-DERMAL SCH (21:00)
[2017-05-05] MEDS: traZODone HCL 50 MG TAB PO SCH (21:00)
[2017-05-05] MEDS: INSULIN DETEMIR 100 UNITS/ML VIAL SQ SCH (21:49)
[2017-05-06 06:34] VITALS: BP 127/94; PULSE 90; RESP 16; TEMP 98.4; O2SAT 100
[2017-05-06 06:37] VITALS: BP 127/94; PULSE 90; RESP 16; TEMP 98.4; O2SAT 100
[2017-05-06] MEDS: SPIRONOLACTONE 25 MG TAB PO SCH (08:48)
[2017-05-06] MEDS: FUROSEMIDE 40 MG TAB PO SCH (08:48)
[2017-05-06] MEDS: GABAPENTIN 100 MG CAP PO SCH ×3 (08:48→18:00)
[2017-05-06] MEDS: ASPIRIN EC 81 MG TABEC PO SCH (08:49)
[2017-05-06] MEDS: LISINOPRIL 5 MG TAB PO SCH (08:49)
[2017-05-06] MEDS: APIXABAN 5 MG TABLET PO SCH ×2 (08:49→21:40)
[2017-05-06] MEDS: NICOTINE 21 MG/24 HR PATCH T-DERMAL SCH (09:00)
[2017-05-06 10:36] LABS: BICARBONATE 25.8 MEQ/L (21.0-32.0); BLOOD UREA NITROGEN 14 MG/DL (7-18); CHLORIDE 103 MEQ/L (98-107); CHOLESTEROL 98 MG/DL (120-200); CREATININE 1.03 MG/DL (0.60-1.30); GLOMERULAR FILTRATION RATE 96 ML/MIN (>89); GLUCOSE,RANDOM 129 MG/DL (74-106); SODIUM (NA) 140 MEQ/L (136-145); TRIGLYCERIDES 59 MG/DL (42-150)
[2017-05-06 10:38] LABS: CHOLESTEROL/ HDL RATIO 3.62 RATIO; LDL CHOLESTEROL 59 MG/DL (0-99)
[2017-05-06 11:26] LABS: HEMOGLOBIN A1C 11.6 % (4.3-6.0)
--- NOTE | 2017-05-06 14:18 | HHI.PYPN ---
Subjective Remarks Pt seen and discussed with staff. He has been reporting that he has nothing left to live for to staff. He opened up about stressors (son in [facility], recent of close family members and possible eviction) to RN today. He reports that he is feeling safer in the hospital and is agreeable for admission. Mental Status Examination Appearance: Appropriate Consciousness: Alert Orientation: x4 Motor Activity: Normal gait Speech: Unremarkable Language: Adequate Fund of Knowledge: Adequate Attention and Concentration: Adequate Memory: Unremarkable Mood: Sad Affect: Sad Thought Process & Associations: Intact Thought Content: Appropriate Hallucination Type: None Delusion Type: Paranoid Suicidal Ideation: Yes Suicidal Plan: No Suicidal Intention: No Homicidal Ideation: No Homicidal Plan: No Homicidal Intention: No Insight: Poor Judgment: Poor Results Labs Test 05/06/17 08:25 Blood Urea Nitrogen 14 MG/DL Creatinine 1.03 MG/DL Random Glucose 129 MG/DL Calcium Level 8.0 MG/DL Sodium Level 140 MEQ/L Potassium Level 3.4 MEQ/L Chloride Level 103 MEQ/L Carbon Dioxide Level 25.8 MEQ/L Anion Gap 11 MEQ/L Estimat Glomerular Filtration Rate 96 ML/MIN Hemoglobin A1c 11.6 % Triglycerides Level 59 MG/DL Cholesterol Level 98 MG/DL LDL Cholesterol 59 MG/DL HDL Cholesterol 27.0 MG/DL Cholesterol/HDL Ratio 3.62 RATIO Vitals/IOs Vital Signs Date Time Temp Pulse Resp B/P (MAP) Pulse Ox O2 Delivery O2 Flow Rate FiO2 05/06/17 06:37 98.4 90 16 127/94 (105) 100 Intake and Output 05/06/17 05/06/17 05/07/17 08:00 16:00 00:00 Intake Total 240 ml Balance 240 ml Assessment & Plan Problem List: (1) Major depressive disorder, single episode ICD Codes: F32.9 - Major depressive disorder, single episode, unspecified Assessment & Plan Continue current tx plan. Pt may sign for voluntary admission. Estimated LOS: days Justification for Cont. Inpt. monitoring for safety Problem Qualifiers (1) Major depressive disorder, single episode: Ruma Castle MD May 06, 2017 14:18
[2017-05-06] MEDS ORDERED: DEXTROSE 50% IN WATER 50 ML VIAL(D50) IV PUSH PRN (15:00)
[2017-05-06] MEDS ORDERED: GLUCAGON 1 MG/ML VIAL OTHER PRN (15:00)
[2017-05-06] MEDS ORDERED: POTASSIUM CHLORIDE 20 MEQ CONTROLLED RELEASE TAB PO ONE (16:30)
--- NOTE | 2017-05-06 16:42 | PD.CONS ---
[facility] By [facility] Physician Unknown Diagnoses: History of Present Illness Mr. Abad is a 42 year old male admitted to psychiatry care secondary to Major Depression. He has an extensive cardiac history and has HTN and DM2 at baseline. Etiology for his heart disease may be genetic, his brother has a similar early cardiac disease history and at age 48. No chest pain reported by the patient. His blood sugars are controlled here thus far, but he reports that his blood sugar prior to admit was over 300 and his HgbA1c shows lack of control. Review of Systems Constitutional: DENIES: Fever, Chills, Night Sweats Eyes: DENIES: Blurred vision, Diplopia, Eye inflammation Ears, nose, mouth, throat: DENIES: Tinnitus, Hearing loss, Vertigo Respiratory: DENIES: Cough, Wheezing, Shortness of breath Cardiovascular: DENIES: Chest pain, Palpitations, Syncope Gastrointestinal: DENIES: Abdominal pain, Black stools, Bloody stools Musculoskeletal: DENIES: Joint pain, Muscle aches, Stiffness, Joint Swelling Integumentary: DENIES: Abnormal pigmentation, Nail changes, Pruritus, Rash Hematologic/lymphatic: DENIES: Bruising, Lymphadenopathy Immunologic/allergic: DENIES: Eczema, Urticaria Neurologic: DENIES: Abnormal gait, Headache, Paresthesias Psychiatric: COMPLAINS OF: Mood changes, Depression, DENIES: Anxiety, Confusion , Hallucinations Past Family Social History Allergies: Coded Allergies: hydromorphone (Verified Allergy, Severe, Hives, 05/03/17) phenobarbital (Unverified Allergy, Unknown, 05/03/17) Past Medical History History of CVA History of severe dilated cardiomyopathy History of Systolic CHF History of angina Coronary artery disease Diabetes mellitus type II History of hyperkalemia Past Surgical History Scalp laceration repair Reported Medications Reported Meds & Active Scripts Active Atorvastatin (Atorvastatin Calcium) 80 Mg Tab 80 Mg PO HS Eliquis (Apixaban) 5 Mg Tab 5 Mg PO BID Walker with Front Wheels (Device) 1 Mis Mis Ea .XX DIRECTED Aspirin 81 (Aspirin) 81 Mg Tabdr 81 Mg PO DAILY Levemir Inj (Insulin Detemir) 1,000 unit/ 10 ML Vial 30 Units SQ HS Do not mix with any other Insulin. Lisinopril 5 Mg Tab 5 Mg PO DAILY Spironolactone 25 Mg Tab 25 Mg PO DAILY Lasix (Furosemide) 40 Mg Tab 40 Mg PO DAILY Trazodone (Trazodone HCl) 50 Mg Tab 50 Mg PO HS Gabapentin 100 Mg Cap 100 Mg PO TID Active Ordered Medications Administered Medications Medications (Trade) Dose Ordered Sig/Stacy Route PRN Reason Start Time Stop Time Status Last Admin Dose Admin Apixaban (Eliquis) 5 mg BID PO 05/05/17 21:00 05/06/17 08:49 Aspirin (Ecotrin Ec) 81 mg DAILY PO 05/06/17 09:00 05/06/17 08:49 Furosemide (Lasix) 40 mg DAILY PO 05/06/17 09:00 05/06/17 08:48 Gabapentin (Neurontin) 100 mg TID PO 05/06/17 09:00 05/06/17 13:00 Insulin Detemir (Levemir Inj) 30 units HS SQ 05/05/17 21:00 05/05/17 21:49 Lisinopril (Prinivil) 5 mg DAILY PO 05/06/17 09:00 05/06/17 08:49 Spironolactone (Aldactone) 25 mg DAILY PO 05/06/17 09:00 05/06/17 08:48 Family History CAD in Brother, of [place] at age 48 Social History Occasional Marijuana No nicotine abuse No alcohol abuse No illicit drug abuse Physical Exam Vital Signs Vital Signs Date Time Temp Pulse Resp B/P (MAP) Pulse Ox O2 Delivery O2 Flow Rate FiO2 05/06/17 06:37 98.4 90 16 127/94 (105) 100 05/06/17 06:34 98.4 90 16 127/94 (105) 100 05/05/17 17:08 97.6 99 18 122/89 (100) 98 Physical Exam GENERAL: NAD, A&Ox3 HEAD: Normocephalic. NECK: Supple, trachea midline. No lymphadenopathy. EYES: No scleral icterus. No injection or drainage. CARDIOVASCULAR: Regular rate and rhythm without murmurs, gallops, or rubs. RESPIRATORY: Breath sounds equal bilaterally. No accessory muscle use. GASTROINTESTINAL: Abdomen soft, non-tender, nondistended. MUSCULOSKELETAL: No cyanosis, or edema. SKIN: Warm and dry. NEURO: No focal neurological deficitis. Laboratory Laboratory Tests Test 05/06/17 08:25 Blood Urea Nitrogen 14 Creatinine 1.03 Random Glucose 129 Calcium Level 8.0 Sodium Level 140 Potassium Level 3.4 Chloride Level 103 Carbon Dioxide Level 25.8 Anion Gap 11 Estimat Glomerular Filtration Rate 96 Hemoglobin A1c 11.6 Triglycerides Level 59 Cholesterol Level 98 LDL Cholesterol 59 HDL Cholesterol 27.0 Cholesterol/HDL Ratio 3.62 Result Diagram: 05/06/17 0825 Assessment and Plan Assessment and Plan 42-year-old male admitted secondary to Major depressive disorder. Consult placed regarding HTN and DM2. Hypertension BP currently controlled Continue baseline treatment (Lasix, Spironolactone, Lisinopril) Follow blood pressures Adjust treatments as needed Diabetes mellitus type 2 HgbA1c shows poor baseline control Follow blood sugars Insulin sliding scale Continue current Levemir dosing Plan to adjust insulins based on trends Diabetic diet Repeat BMP in AM Diabetic Neuropathy Continue Gabapentin History of CVA Supportive Care Continue Aspirin Follow clinically History of Angina Severe dilated cardiomyopathy Chronic Systolic CHF CAD Continue Lisinopril Continue Eliquis Continue Statin Continue Lasix Continue spironolactone Continue Aspirin Screen for autoimmunity with next AM lab Hypokalemia Mild Potassium supplement provided No need for further monitoring DVT prophylaxis Franklyn Regan MD May 06, 2017 16:42
[2017-05-06] MEDS: INSULIN ASPART SUPPLEMENTAL SCALE SQ SCH ×2 (16:55→21:00)
[2017-05-06 18:21] VITALS: BP 130/60; PULSE 84; RESP 16; TEMP 98; O2SAT 100
[2017-05-06] MEDS: traZODone HCL 50 MG TAB PO SCH (21:00)
[2017-05-06] MEDS: REMOVE OLD PATCH T-DERMAL SCH (21:00)
[2017-05-06] MEDS: INSULIN DETEMIR 100 UNITS/ML VIAL SQ SCH (21:40)
[2017-05-06] MEDS: ATORVASTATIN 80 MG TAB PO SCH (21:41)
[2017-05-07 06:27] VITALS: BP 104/72; PULSE 77; RESP 17; TEMP 98.4; O2SAT 98
[2017-05-07] MEDS: INSULIN ASPART SUPPLEMENTAL SCALE SQ SCH ×4 (08:00→21:00)
[2017-05-07] MEDS: ASPIRIN EC 81 MG TABEC PO SCH (08:28)
[2017-05-07] MEDS: GABAPENTIN 100 MG CAP PO SCH ×3 (08:29→16:38)
[2017-05-07] MEDS: SPIRONOLACTONE 25 MG TAB PO SCH (08:29)
[2017-05-07] MEDS: LISINOPRIL 5 MG TAB PO SCH (08:29)
[2017-05-07] MEDS: FUROSEMIDE 40 MG TAB PO SCH (08:29)
[2017-05-07] MEDS: APIXABAN 5 MG TABLET PO SCH ×2 (08:29→22:01)
[2017-05-07] MEDS: NICOTINE 21 MG/24 HR PATCH T-DERMAL SCH (08:53)
[2017-05-07 10:59] LABS: BICARBONATE 26.8 MEQ/L (21.0-32.0); BLOOD UREA NITROGEN 14 MG/DL (7-18); CALCIUM 8.9 MG/DL (8.5-10.1); CHLORIDE 102 MEQ/L (98-107); CREATININE 1.12 MG/DL (0.60-1.30); GLOMERULAR FILTRATION RATE 87 ML/MIN (>89); GLUCOSE,RANDOM 159 MG/DL (74-106); SODIUM (NA) 138 MEQ/L (136-145)
[2017-05-07 11:07] LABS: RHEUMATOID FACTOR SCREEN NEGATIVE (NEGATIVE)
[2017-05-07 11:29] LABS: C-REACTIVE PROTEIN LESS THAN 0.29 MG/DL (0.00-0.30)
--- NOTE | 2017-05-07 12:24 | HHI.PR ---
Subjective Remarks Patient seen and examined. Afebrile vital signs stable. Denies any nausea vomiting or shortness of breath. Overall reports that he is doing well and in good spirits. He does have neuropathy in his feet that is tolerable with the gabapentin. Blood sugars have been doing well on current regimen will continue at this time. Objective Vitals Vital Signs Date Time Temp Pulse Resp B/P (MAP) Pulse Ox O2 Delivery O2 Flow Rate FiO2 05/07/17 06:27 98.4 77 17 104/72 (83) 98 05/06/17 18:21 98.0 84 16 130/60 (83) 100 I/O 05/06/17 05/06/17 05/06/17 05/07/17 05/07/17 05/07/17 07:00 15:00 23:00 07:00 15:00 23:00 Intake Total 240 ml 480 ml Balance 240 ml 480 ml Intake Oral 240 ml 480 ml Result Diagram: 05/07/17 0930 A/P Problem List: (1) DM type 2 (diabetes mellitus, type 2) ICD Code: E11.9 - Type 2 diabetes mellitus without complications Status: Chronic (2) CVA (cerebral vascular accident) ICD Code: I63.9 - Cerebral infarction, unspecified (3) Hypertension ICD Code: I10 - Essential (primary) hypertension Status: Chronic (4) Major depressive disorder, single episode ICD Code: F32.9 - Major depressive disorder, single episode, unspecified (5) CAD S/P percutaneous coronary angioplasty ICD Code: I25.10 - Atherosclerotic heart disease of [place] coronary artery without angina pectoris; Z98.61 - Coronary angioplasty status (6) Hypokalemia ICD Code: E87.6 - Hypokalemia Assessment and Plan 42-year-old male admitted secondary to Major depressive disorder. Consult placed regarding HTN and DM2. Hypertension BP currently controlled Continue baseline treatment (Lasix, Spironolactone, Lisinopril) Follow blood pressures Adjust treatments as needed Diabetes mellitus type 2 HgbA1c shows poor baseline control Follow blood sugars Insulin sliding scale Continue current Levemir dosing Plan to adjust insulins based on trends Diabetic diet Repeat BMP in AM Diabetic Neuropathy Continue Gabapentin History of CVA Supportive Care Continue Aspirin Follow clinically History of Angina Severe dilated cardiomyopathy Chronic Systolic CHF CAD Continue Lisinopril Continue Eliquis Continue Statin Continue Lasix Continue spironolactone Continue Aspirin Screen for autoimmunity with next AM lab Hypokalemia Mild Potassium supplement provided No need for further monitoring DVT prophylaxis Eliquis Discharge Planning Pending psychiatry clearance Problem Qualifiers (1) Major depressive disorder, single episode: Dain Magana MD, R3 May 07, 2017 12:24
--- NOTE | 2017-05-07 14:49 | HHI.PYPN ---
Subjective Remarks Pt seen and discussed with staff. He has been withdrawn and somber. Mood is depressed but he reports some improvement. He has been cooperative with care. He is less hopeless and denies SI today. No medication side effects. Mental Status Examination Appearance: Appropriate Consciousness: Alert Orientation: x4 Motor Activity: Normal gait Speech: Unremarkable Language: Adequate Fund of Knowledge: Adequate Attention and Concentration: Adequate Memory: Unremarkable Mood: Sad Affect: Sad Thought Process & Associations: Intact Thought Content: Appropriate Hallucination Type: None Delusion Type: Paranoid Suicidal Ideation: No (denies today) Suicidal Plan: No Suicidal Intention: No Homicidal Ideation: No Homicidal Plan: No Homicidal Intention: No Insight: Poor Judgment: Poor Results Labs Test 05/07/17 09:30 Erythrocyte Sedimentation Rate 1 mm/hr Blood Urea Nitrogen 14 MG/DL Creatinine 1.12 MG/DL Random Glucose 159 MG/DL Calcium Level 8.9 MG/DL Sodium Level 138 MEQ/L Potassium Level 3.5 MEQ/L Chloride Level 102 MEQ/L Carbon Dioxide Level 26.8 MEQ/L Anion Gap 9 MEQ/L Estimat Glomerular Filtration Rate 87 ML/MIN C-Reactive Protein LESS THAN 0.29 MG/DL Rheumatoid Factor Screen NEGATIVE Rheumatoid Factor Titer IU/ML Vitals/IOs Vital Signs Date Time Temp Pulse Resp B/P (MAP) Pulse Ox O2 Delivery O2 Flow Rate FiO2 05/07/17 06:27 98.4 77 17 104/72 (83) 98 Assessment & Plan Problem List: (1) Major depressive disorder, single episode ICD Codes: F32.9 - Major depressive disorder, single episode, unspecified Assessment & Plan Pt improving. Continue current tx plan. Estimated LOS: days Justification for Cont. Inpt. monitoring for safety Problem Qualifiers (1) Major depressive disorder, single episode: Ruma Castle MD May 07, 2017 14:49
[2017-05-07 18:00] VITALS: BP 103/66; PULSE 72; RESP 16; TEMP 98.1; O2SAT 100
[2017-05-07] MEDS: REMOVE OLD PATCH T-DERMAL SCH (21:00)
[2017-05-07] MEDS: traZODone HCL 50 MG TAB PO SCH (21:00)
[2017-05-07] MEDS: INSULIN DETEMIR 100 UNITS/ML VIAL SQ SCH (22:00)
[2017-05-07] MEDS: ATORVASTATIN 80 MG TAB PO SCH (22:01)
[2017-05-08 05:40] VITALS: BP 118/84; PULSE 88; RESP 17; TEMP 98.2; O2SAT 94
[2017-05-08] MEDS: INSULIN ASPART SUPPLEMENTAL SCALE SQ SCH ×3 (08:00→16:24)
[2017-05-08] MEDS: APIXABAN 5 MG TABLET PO SCH (08:30)
[2017-05-08] MEDS: SPIRONOLACTONE 25 MG TAB PO SCH (08:31)
[2017-05-08] MEDS: ASPIRIN EC 81 MG TABEC PO SCH (08:31)
[2017-05-08] MEDS: FUROSEMIDE 40 MG TAB PO SCH (08:31)
[2017-05-08] MEDS: GABAPENTIN 100 MG CAP PO SCH ×2 (08:32→12:53)
[2017-05-08] MEDS: NICOTINE 21 MG/24 HR PATCH T-DERMAL SCH (08:32)
[2017-05-08] MEDS: LISINOPRIL 5 MG TAB PO SCH (08:32)
--- NOTE | 2017-05-08 16:11 | HHI.DS ---
Psychiatry Discharge Summary Inpatient Psychiatric care?: Yes Advance Directive: No Reason Not Provided: refused Mental Health AdvanceDirective: No Health Care Proxy: No Admission Admission Date May 05, 2017 at 16:58 Admission Diagnosis: (1) Major depressive disorder, single episode ICD Code: F32.9 - Major depressive disorder, single episode, unspecified (2) Adjustment disorder with depressed mood ICD Code: F43.21 - Adjustment disorder with depressed mood Brief History The patient is a 42 year old man, unemployed, supported by [facility] , , domiciled with her sister in [facility], he has no previous psychiatric history, no previous psychiatric admissions, no previous suicidal attempts, cannabis use disorder, I saw the patient once in a psychiatric consult due to adjustment disorder with depression in January 2017, he has medical history of CHF, diabetes and hypertension, who brought into ER after a Bartholomew act for running in the street. His sister reported slurred speech and he was brought to the hospital for both Bartholomew act and evaluation of slurred speech. Patient was consulted to psychiatry to address suicidal attempt. Chart was reviewed. Case discussed with nurse in charge and medical student Dr. Lugo. On psychiatric evaluation today the patient is calm, cooperative, he says that he has been very depressed in the last days. Patient says that he has nothing to live for. Yesterday he had an argument with his sister and he felt he could not take it anymore and he walked into traffic with the desired of didn't hit by a car. The patient reports that he feels that he has Mo re bags in my back of what I can carry". Patient also reports "feeling that everybody is is against me, looking at me and talking about me". He feels very guilty because his son is in senior living. He denies visual and auditory hallucinations. He is oriented 3, no attention deficit. No fluctuation of consciousness. There is no evidence of paranoia, loosening of associations, agitation or aggressive behavior. He reports daily use of marijuana, denies the use of other illegal drugs and alcohol. Tobacco Use In Past 30 Days: No Tobacco Past 30 Days Alcohol Use: Never Hospital Course Patient initially admitted by Dr. Crenshaw, who did the initial psychiatric H& P. That document reviewed. I have done the initial psychiatric template admitting orders, patient seen by me with nurse Todd and medical student Gerson, into patient's room, patient alert oriented calm cooperative Afro-[place]ish male states he did make a mistake with going out into traffic. Frustrated with the issues related to his living situation. And multiple deaths in the family. However he is talk to his sister. They now have a place to live. He now denies suicidality homicidality voices or visions. Is able contracted us to do no harm. He does acknowledge infrequent use of marijuana. Denies alcohol use denies other drug use. He denies any prior psychiatric hospitalization. No as mentioned by Dr. Crenshaw he has been seen in consultation January of last year time patient is alert oriented 4 calm cooperative pleasant. At this time I feel he does not meet Barthloomew criteria for involuntary psychiatric hospitalization. Is here voluntarily and wishes to be discharged. Patient to be discharged to his sister, no Rx by me, though I would recommend referral to tremor grief counseling considering all the very deaths in his family also shared with patient that if he does feel the depression the suicidality little actual touch with reality recovering he can come to our emergency department for assessment prior psychiatric screeners Results Blood Pressure 118 / 84 Vital Signs Date Time Temp Pulse Resp B/P (MAP) Pulse Ox O2 Delivery O2 Flow Rate FiO2 05/08/17 05:40 98.2 88 17 118/84 (95) 94 Laboratory Tests Test 05/06/17 08:25 05/07/17 09:30 Random Glucose 129 MG/DL (74-106) 159 MG/DL (74-106) Calcium Level 8.0 MG/DL (8.5-10.1) Potassium Level 3.4 MEQ/L (3.5-5.1) Hemoglobin A1c 11.6 % (4.3-6.0) Cholesterol Level 98 MG/DL (120-200) HDL Cholesterol 27.0 MG/DL (40.0-60.0) Estimat Glomerular Filtration Rate 87 ML/MIN (>89) Laboratory Results Test 05/06/17 08:25 Cholesterol Level 98 MG/DL (120-200) HDL Cholesterol 27.0 MG/DL (40.0-60.0) Hemoglobin A1c 11.6 % (4.3-6.0) LDL Cholesterol 59 MG/DL (0-99) Triglycerides Level 59 MG/DL (42-150) Summary of Procedures None done Pending results at discharge: No Medications # of Antipsychotic meds at D/C: 0 Approp Antipsych med options 1 - Minimum of three failed multiple trials of monotherapy. 2 - Documented plan to taper to monotherapy due to previous use of multiple meds OR cross-taper in progress at D/C. 3 - Documentation of augmentation of Clozapine. 4 - Justification other than those listed in allowable values 1-3, document here : Discharge Discharge Date: May 08, 2017 Discharge Diagnosis: (1) Adjustment disorder with depressed mood Diagnosis: Principal ICD Code: F43.21 - Adjustment disorder with depressed mood Pt Condition on Discharge: Stable Discharge Disposition: Discharge Home Discharge Instructions Diet Instructions: As Tolerated, No Restrictions Activities you can perform: Regular-No Restrictions Scheduled Appointment: refer to trauma grief counselor Discharge Time > 30 minutes Mental Status Examination Appearance: Appropriate Consciousness: Alert Orientation: x4 Motor Activity: Normal gait Speech: Unremarkable Language: Adequate Fund of Knowledge: Adequate Attention and Concentration: Adequate Memory: Unremarkable Mood: Sad Affect: Sad Thought Process & Associations: Intact Thought Content: Appropriate Hallucination Type: None Delusion Type: Paranoid Suicidal Ideation: No (denies today) Suicidal Plan: No Suicidal Intention: No Homicidal Ideation: No Homicidal Plan: No Homicidal Intention: No Insight: Poor Judgment: Poor Discharge/Advance Care Plan Health Problems: (1) Major depressive disorder, single episode Goals to promote your health * To prevent worsening of your condition and complications * To maintain your health at the optimal level Directions to meet your goals Take your medications as prescribed Follow your dietary instruction Follow activity as directed Keep your appointments as scheduled Take your immunizations and boosters as scheduled If your symptoms worsen call your PCP, if no PCP go to Urgent Care Center or Emergency Room For 17/10 questions related to your inpatient stay or results of tests pending at discharge, please contact Dr. Home Sim at Smoking is Dangerous to Your Health. Avoid second hand smoking Problem Qualifiers (1) Major depressive disorder, single episode: Home Sim MD May 08, 2017 16:11
== END 2017-05-08 16:50 | disposition home or self-care (01) | DRG 881 ==
LOC: H250 16:58
PROVIDERS: ADMIT Psychiatry & Neurology Psychiatry; ATTEND Psychiatry & Neurology Psychiatry
DX: F43.21 Adjustment disorder with depressed mood (principal); I11.0 Hypertensive heart disease with heart failure; I50.22 Chronic systolic (congestive) heart failure; I42.0 Dilated cardiomyopathy; R45.851 Suicidal ideations; E11.40 Type 2 diabetes mellitus with diabetic neuropathy, unspecified; I25.10 Atherosclerotic heart disease of native coronary artery without angina pectoris; F12.90 Cannabis use, unspecified, uncomplicated; E87.6 Hypokalemia; R47.81 Slurred speech; Z98.61 Coronary angioplasty status; Z63.9 Problem related to primary support group, unspecified; Z79.4 Long term (current) use of insulin; Z79.01 Long term (current) use of anticoagulants; Z86.73 Personal history of transient ischemic attack (TIA), and cerebral infarction without residual deficits; R29.818 Other symptoms and signs involving the nervous system; R07.9 Chest pain, unspecified; I25.2 Old myocardial infarction; E78.5 Hyperlipidemia, unspecified; R06.02 Shortness of breath; F41.9 Anxiety disorder, unspecified; R60.9 Edema, unspecified; R09.89 Other specified symptoms and signs involving the circulatory and respiratory systems; Z79.82 Long term (current) use of aspirin; Z95.810 Presence of automatic (implantable) cardiac defibrillator; Z87.891 Personal history of nicotine dependence; Z82.49 Family history of ischemic heart disease and other diseases of the circulatory system; Z79.899 Other long term (current) drug therapy
CPT/HCPCS: 80048; 80061; 82948; 83036; 85652; 86038; 86140; 86430; J1815

== ENCOUNTER 2017-08-01 09:33 | Emergency (ER) | payer MEDICARE, MEDICAID ==
[~2017-08-01] VITALS: Ht 170.2 cm; Wt 85.0 kg
[~2017-08-01 09:33] MED LIST changes: -CARV12.5 PO
[2017-08-01 09:35] VITALS: BP 136/82; PULSE 98; RESP 16; TEMP 98; O2SAT 100
[2017-08-01] MEDS ORDERED: GLYB5TAB3 PO (10:00)
[2017-08-01] MEDS ORDERED: METF500 PO (10:00)
--- NOTE | 2017-08-01 10:10 | PD ---
HPI Chief Complaint: Eye Problems/Injury Time Seen by Provider: 09:48 Travel History International Travel<30 days: No Contact w/Intl Traveler<30days: No Traveled to known affect area: No History of Present Illness HPI There is a 42-year-old man presents to the emergency department complaining of "I know I need help" and "I do not feel good". He states he has some blurry vision in both eyes and keeps rubbing his eyes. States he has a history of diabetes hypertension and CHF. He was just discharged from hospital in [place] for a "lung infection". He states he has not been taking any of his prescribed medications and been using illicit drugs for the past several days. He just got the bus from [place]. States he tried to follow-up with his primary doctor but she is out of town. No other complaints. History Past Medical History Narrative Medical Patient reports history of diabetes, hypertension, CHF Tetanus Vaccination: < 5 Years Social History Narrative Social History Polysubstance abuse Alcohol Use: Yes (SOCIALLY) Tobacco Use: No Allergies-Medications (Allergen,Severity, Reaction): Coded Allergies: hydromorphone (Verified Allergy, Severe, Hives, 08/01/17) phenobarbital (Unverified Allergy, Unknown, 08/01/17) Reported Meds & Prescriptions Reported Meds & Active Scripts Active Atorvastatin (Atorvastatin Calcium) 80 Mg Tab 80 Mg PO HS Aspirin 81 (Aspirin) 81 Mg Tabdr 81 Mg PO DAILY Spironolactone 25 Mg Tab 25 Mg PO DAILY Lasix (Furosemide) 40 Mg Tab 40 Mg PO DAILY Gabapentin 100 Mg Cap 100 Mg PO TID Reported Diclofenac Sodium DR (Diclofenac Sodium) 75 Mg Tabdr 75 Mg PO BID Eliquis (Apixaban) 5 Mg Tab 5 Mg PO DAILY Potassium Chloride ER (Potassium Chloride) 10 Meq Tab 20 Meq PO DAILY 14 Days Lisinopril 2.5 Mg Tab 2.5 Mg PO BID Lexapro (Escitalopram Oxalate) 10 Mg Tab 10 Mg PO DAILY Coreg (Carvedilol) 6.25 Mg Tab 6.25 Mg PO BID Proair Hfa 8.5 GM Inh (Albuterol Sulfate) 90 Mcg/Act Aer 2 Puff INH Q6H 108 mcg/actuation Glucophage (Metformin HCl) 500 Mg Tab 500 Mg PO BIDPC Glyburide 5 Mg Tab 5 Mg PO BID Take with meals at the same time each day Review of Systems Except as stated in HPI: all other systems reviewed are Neg Physical Exam Narrative GENERAL: 40-year-old man, no acute distress per SKIN: Focused skin assessment warm/dry. HEAD: Atraumatic. Normocephalic. EYES: Pupils equal and round. No scleral icterus. No injection or drainage. ENT: No nasal bleeding or discharge. Mucous membranes pink and moist. NECK: Trachea midline. No JVD. CARDIOVASCULAR: Regular rate and rhythm. No murmur appreciated. RESPIRATORY: No accessory muscle use. Clear to auscultation. Breath sounds equal bilaterally. GASTROINTESTINAL: Abdomen soft, non-tender, nondistended. Hepatic and splenic margins not palpable. MUSCULOSKELETAL: No obvious deformities. Chronic pitting edema both lower extremities. NEUROLOGICAL: Awake and alert. No obvious cranial nerve deficits. Motor grossly within normal limits. Normal speech. PSYCHIATRIC: Appropriate mood and affect; insight and judgment normal. Data Data Last Documented VS Vital Signs Date Time Temp Pulse Resp B/P (MAP) Pulse Ox O2 Delivery O2 Flow Rate FiO2 08/01/17 09:35 98.0 98 16 136/82 (100) 100 Orders Orders Furosemide (Lasix) (08/01/17 10:15) Spironolactone (Aldactone) (08/01/17 10:15) Glyburide (Diabeta) (08/01/17 10:15) Apixaban (Eliquis) (08/01/17 10:15) Metformin (Glucophage) (08/01/17 10:15) Ed Discharge Order (08/01/17 10:10) MDM Medical Decision Making Medical Screen Exam Complete: Yes Emergency Medical Condition: Yes Differential Diagnosis Medication noncompliance, polysubstance abuse, volume overload, CHF, weakness, other Narrative Course Medical decision making 40-year-old man presents emerged from complaining of wanting help for substance abuse and feeling sick he has some signs of edema and volume overload after not taking any medications for what sounds like at least a couple weeks although was in the hospital recently. He has a medication list from the hospital from discharge. We reviewed this with him. We give him a dose of some of his pertinent medications this morning. He has his medications with him but still has not been taking them. He states he is a primary doctor across the street from the hospital here. He was given a list of resources for substance abuse treatment follow-up. He was encouraged to take his medications and the severity of his chronic conditions were described to him. Recommend that he follow-up with his primary doctor the first available appointment. Diagnosis Primary Impression: CHF (congestive heart failure) Additional Impressions: Non-compliant behavior Polysubstance abuse Additional Instructions: Avoid illicit drugs. Follow-up with substance abuse treatment resources as provided. Take medications as prescribed. See the medication list that was provided when you were discharged from [place]. Follow-up with your primary doctor this week. Med/Other Pt SpecificInfo: No Change to Meds Disposition: 01 DISCHARGE HOME Condition: Jose Miguel Amador MD August 01, 2017 10:10
[2017-08-01] MEDS ORDERED: glyBURIDE 5 MG TAB PO ONE (10:15)
[2017-08-01] MEDS ORDERED: SPIRONOLACTONE 25 MG TAB PO ONE (10:15)
[2017-08-01] MEDS ORDERED: FUROSEMIDE 40 MG TAB PO ONE (10:15)
[2017-08-01] MEDS ORDERED: metFORMIN HCL 500 MG TAB PO ONE (10:15)
[2017-08-01] MEDS ORDERED: APIXABAN 5 MG TABLET PO ONE (10:15)
[2017-08-01] MEDS ORDERED: APIX5TAB PO (10:26)
[2017-08-01] MEDS ORDERED: ALBUAER3 INH (10:26)
[2017-08-01] MEDS ORDERED: CARV6.25 PO (10:26)
[2017-08-01] MEDS ORDERED: DICL75TA PO (10:26)
[2017-08-01] MEDS ORDERED: LISI2.5T3 PO (10:26)
[2017-08-01] MEDS ORDERED: POTA10TA2 PO (10:26)
[2017-08-01] MEDS ORDERED: LEXA10TA PO (10:26)
== END 2017-08-01 10:56 | disposition home or self-care (01) ==
LOC: NEPD 09:33
DX: I11.0 Hypertensive heart disease with heart failure (principal); I50.9 Heart failure, unspecified; F19.10 Other psychoactive substance abuse, uncomplicated; E11.9 Type 2 diabetes mellitus without complications; Z91.19 Patient's noncompliance with other medical treatment and regimen; Z79.84 Long term (current) use of oral hypoglycemic drugs
CPT/HCPCS: 99283

== ENCOUNTER 2017-08-07 12:52 | Inpatient (IN) | payer MEDICARE, MEDICAID ==
[~2017-08-07] VITALS: Ht 170.2 cm; Wt 86.3 kg
[~2017-08-07 12:52] MED LIST changes: +ALBUAER3 INH; +CARV6.25 PO; +DICL75TA PO; +GLYB5TAB3 PO; -LEVEMIR SQ; +LEXA10TA PO; -LISI-519 PO; +LISI2.5T3 PO; +METF500 PO; +POTA10TA2 PO; -TRAZ50TA12 PO; -WALKER WHEELS/F1 MIS
[2017-08-07 13:41] VITALS: BP 111/69; PULSE 77; RESP 20; TEMP 98.4; O2SAT 100
--- NOTE | 2017-08-07 14:29 | PD ---
HPI Chief Complaint: Edema Time Seen by Provider: 14:11 Travel History International Travel<30 days: No Contact w/Intl Traveler<30days: No Traveled to known affect area: No History of Present Illness HPI Patient presents to the emergency department complaining of edema states that he has had bilateral lower extremity edema for approximately 1 month and his medications are working. He does endorse not taking Lasix for about a month because he has been out. Also reporting worsening neuropathy in his hands bilaterally. He is taking gabapentin for neuropathy. He denies fever, vomiting , and is unsure if he is having difficulty urinating. He reports chills, nausea , dyspnea on exertion, chest pain chest pain is described as being left-sided, intermittent, I was in duration, present for approximately a month, no alleviating factors, aggravated by exertion. PFSH Past Medical History Hx Anticoagulant Therapy: Yes Asthma: No Atrial Fibrillation: Yes Blood Disorders: No Anxiety: Yes Depression: Yes Heart Rhythm Problems: Yes Cancer: No Cardiac Catheterization: Yes Cardiovascular Problems: Yes (CHF) High Cholesterol: No Chemotherapy: No Chest Pain: Yes Congestive Heart Failure: No COPD: No Diabetes: Yes Patient Takes Glucophage: Yes (08/07/2017 1200) Diminished Hearing: No Endocrine: No Gastrointestinal Disorders: No Genitourinary: No Headaches: No Hypertension: Yes Immune Disorder: No Implanted Vascular Access Dvce: Yes Musculoskeletal: Yes Neurologic: Yes Reproductive: No Respiratory: No Immunizations Current: Yes Myocardial Infarction: Yes (X 1 IN 2009) Radiation Therapy: No Seizures: No Sleep Apnea: No Thyroid Disease: No Past Surgical History AICD: Yes ([id number]) Body Medical Devices: pacer and defibrillator inplants Cardiac Surgery: Yes (AICD/PACER) Coronary Stent: Yes (X 1 ) Other Surgery: Yes (several AICD placements, pacer inserted) Social History Alcohol Use: Yes (SOCIALLY) Tobacco Use: No Substance Use: Yes (marijuana) Allergies-Medications (Allergen,Severity, Reaction): Coded Allergies: hydromorphone (Verified Allergy, Severe, Hives, 08/07/17) phenobarbital (Unverified Allergy, Unknown, 08/07/17) Reported Meds & Prescriptions Reported Meds & Active Scripts Active Atorvastatin (Atorvastatin Calcium) 80 Mg Tab 80 Mg PO HS Aspirin 81 (Aspirin) 81 Mg Tabdr 81 Mg PO DAILY Spironolactone 25 Mg Tab 25 Mg PO DAILY Gabapentin 100 Mg Cap 100 Mg PO TID Reported Eliquis (Apixaban) 5 Mg Tab 5 Mg PO DAILY Coreg (Carvedilol) 6.25 Mg Tab 12.5 Mg PO BID Glucophage (Metformin HCl) 500 Mg Tab 500 Mg PO BIDPC Glyburide 5 Mg Tab 5 Mg PO BID Take with meals at the same time each day Review of Systems Except as stated in HPI: all other systems reviewed are Neg Physical Exam Narrative GENERAL: No acute distress. SKIN: Focused skin assessment warm/dry. HEAD: Atraumatic. Normocephalic. EYES: Pupils equal and round. No scleral icterus. No injection or drainage. ENT: No nasal bleeding or discharge. Mucous membranes pink and moist. NECK: Trachea midline. No JVD. CARDIOVASCULAR: Regular rate and rhythm. Murmur appreciated. RESPIRATORY: No accessory muscle use. Clear to auscultation. Breath sounds equal bilaterally. GASTROINTESTINAL: Abdomen soft, non-tender, nondistended. Hepatic and splenic margins not palpable. MUSCULOSKELETAL: No obvious deformities. No clubbing. No cyanosis. Pitting bilateral lower extremity edema. NEUROLOGICAL: Awake and alert. No obvious cranial nerve deficits. Motor grossly within normal limits. Normal speech. PSYCHIATRIC: Appropriate mood and affect; insight and judgment normal. Data Data Last Documented VS Vital Signs Date Time Temp Pulse Resp B/P (MAP) Pulse Ox O2 Delivery O2 Flow Rate FiO2 08/07/17 14:36 100 Room Air 08/07/17 13:55 77 23 08/07/17 13:41 98.4 111/69 (83) Orders Orders Complete Blood Count With Diff (08/07/17 14:22) Comprehensive Metabolic Panel (08/07/17 14:22) B-Type Natriuretic Peptide (08/07/17 14:22) Act Partial Throm Time (Ptt) (08/07/17 14:22) Prothrombin Time / Inr (Pt) (08/07/17 14:22) Magnesium (Mg) (08/07/17 14:22) Ckmb (Isoenzyme) Profile (08/07/17 14:22) Troponin I (08/07/17 14:22) Urinalysis - C+S If Indicated (08/07/17 14:22) Iv Access Insert/Monitor (08/07/17 14:22) Electrocardiogram (08/07/17 14:22) Ecg Monitoring (08/07/17 14:22) Oximetry (08/07/17 14:22) Chest, Single Ap (08/07/17 14:22) Sodium Chloride 0.9% Flush (Ns Flush) (08/07/17 14:30) Aspirin (Aspirin) (08/07/17 14:30) Furosemide Inj (Lasix Inj) (08/07/17 15:45) Acetaminophen (Tylenol) (08/07/17 16:15) Admit Order (Ed Use Only) (08/07/17 17:04) Labs Laboratory Tests Test 08/07/17 14:35 08/07/17 15:50 08/07/17 16:30 Prothrombin Time 12.7 SEC Prothromb Time International Ratio 1.3 RATIO Activated Partial Thromboplast Time 27.0 SEC Blood Urea Nitrogen 25 MG/DL Creatinine 1.33 MG/DL Random Glucose 160 MG/DL Total Protein 6.5 GM/DL Albumin 2.8 GM/DL Calcium Level 8.0 MG/DL Magnesium Level 1.9 MG/DL Alkaline Phosphatase 238 U/L Aspartate Amino Transf (AST/SGOT) 34 U/L Alanine Aminotransferase (ALT/SGPT) 26 U/L Total Bilirubin 1.3 MG/DL Sodium Level 140 MEQ/L Potassium Level 4.3 MEQ/L Chloride Level 109 MEQ/L Carbon Dioxide Level 21.9 MEQ/L Anion Gap 9 MEQ/L Estimat Glomerular Filtration Rate 71 ML/MIN Total Creatine Kinase 66 U/L Troponin I LESS THAN 0.02 NG/ML B-Type Natriuretic Peptide 734 PG/ML White Blood Count 9.2 TH/MM3 Red Blood Count 5.79 MIL/MM3 Hemoglobin 13.2 GM/DL Hematocrit 39.8 % Mean Corpuscular Volume 68.8 FL Mean Corpuscular Hemoglobin 22.8 PG Mean Corpuscular Hemoglobin Concent 33.1 % Red Cell Distribution Width 19.8 % Platelet Count 269 TH/MM3 Mean Platelet Volume 8.6 FL Neutrophils (%) (Auto) 77.2 % Lymphocytes (%) (Auto) 13.8 % Monocytes (%) (Auto) 7.4 % Eosinophils (%) (Auto) 0.9 % Basophils (%) (Auto) 0.7 % Neutrophils # (Auto) 7.1 TH/MM3 Lymphocytes # (Auto) 1.3 TH/MM3 Monocytes # (Auto) 0.7 TH/MM3 Eosinophils # (Auto) 0.1 TH/MM3 Basophils # (Auto) 0.1 TH/MM3 CBC Comment DIFF FINAL Differential Comment Urine Color YELLOW Urine Turbidity CLEAR Urine pH 5.5 Urine Specific [place] 1.021 Urine Protein 30 mg/dL Urine Glucose (UA) NEG mg/dL Urine Ketones NEG mg/dL Urine Occult Blood NEG Urine Nitrite NEG Urine Bilirubin NEG Urine Urobilinogen 4.0 MG/DL Urine Leukocyte Esterase NEG Urine RBC LESS THAN 1 /hpf Urine WBC LESS THAN 1 /hpf Microscopic Urinalysis Comment CULT NOT INDICATED MDM Medical Decision Making Medical Screen Exam Complete: Yes Emergency Medical Condition: Yes Interpretation(s) Labs: Elevated BNP, alk phos, creatinine, BUN, glucose, total bili; UA pending at time of admission, admit to follow ECG rate 69, ventricular paced rhythm Last Impressions Chest X-Ray 08/07/17 1422 Signed Impressions: Service Date/Time: Monday, August 07, 2017 14:24 - CONCLUSION: 1. Compensated mild cardiomegaly. Miguel Martinez MD Differential Diagnosis ACS, pulmonary edema, CHF, kidney disease, liver disease Narrative Course Patient presents to the emergency department complaining of chest pain in shortness of breath and bilateral lower extremity edema will check chest x-ray, EKG, enzymes, CBC, chemistry, UA. 1540: Given 40 mg Lasix IV and aspirin 325 mg p.o. 1600: Requested Tylenol for back pain, given 650 Tylenol p.o. Diagnosis Primary Impression: Acute exacerbation of congestive heart failure Qualified Codes: I50.9 - Heart failure, unspecified Additional Impression: Chest pain Qualified Codes: R07.9 - Chest pain, unspecified Admitting Information Admitting Physician Requests: Admit Condition: Stable Destiny Fam MD August 07, 2017 14:29
[2017-08-07] MEDS ORDERED: ASPIRIN 325 MG TAB PO ONE (14:30)
[2017-08-07] MEDS ORDERED: SODIUM CHLORIDE 0.9% FLUSH 10 ML FLUSH IVF PRN (14:30)
[2017-08-07 14:36] VITALS: O2SAT 100
[2017-08-07 14:56] LABS: INTERNATIONAL NORMALIZED RATIO 1.3 RATIO; PROTHROMBIN TIME - PATIENT 12.7 SEC (9.8-11.6)
--- NOTE | 2017-08-07 14:58 | RADRPT ---
EXAM DATE/TIME: 08/07/2017 14:24 [facility] COMPARISON: CHEST SINGLE AP, May 04, 2017, 15:18. INDICATIONS : Shortness of breath. MEDICAL HISTORY : Cardiovascular disease. Diabetes SURGICAL HISTORY : Pacemaker. ENCOUNTER: Initial ACUITY: 1 month PAIN SCORE: 0/10 LOCATION: Bilateral chest FINDINGS: Stable multilead pacemaker in place. No new focal pleural or parenchymal opacities. Cardiac silhouett e is mildly enlarged. Pulmonary vascularity is within normal limits. Remainder of exam is unchanged. CONCLUSION: 1. Compensated mild cardiomegaly. Miguel Martinez MD on August 07, 2017 at 14:55 Board Certified Radiologist. This report was verified electronically.
[2017-08-07 15:25] LABS: ALBUMIN 2.8 GM/DL (3.4-5.0); ALKALINE PHOSPHATASE 238 U/L (45-117); ALT (GPT) 26 U/L (12-78); AST (GOT) 34 U/L (15-37); BICARBONATE 21.9 MEQ/L (21.0-32.0); BLOOD UREA NITROGEN 25 MG/DL (7-18); CHLORIDE 109 MEQ/L (98-107); CREATININE 1.33 MG/DL (0.60-1.30); GLOMERULAR FILTRATION RATE 71 ML/MIN (>89); GLUCOSE,RANDOM 160 MG/DL (74-106); MAGNESIUM 1.9 MG/DL (1.5-2.5); SODIUM (NA) 140 MEQ/L (136-145); TOTAL BILIRUBIN ADULT 1.3 MG/DL (0.2-1.0); TOTAL PROTEIN 6.5 GM/DL (6.4-8.2); TROPONIN I LESS THAN 0.02 NG/ML (0.02-0.05)
[2017-08-07] MEDS ORDERED: FUROSEMIDE 40 MG/4 ML VIAL IV PUSH ONE (15:45)
[2017-08-07] MEDS ORDERED: ACETAMINOPHEN 325 MG TAB PO ONE (16:15)
[2017-08-07 16:25] LABS: AUTOMATED NEUTROPHIL # 7.1 TH/MM3 (1.8-7.7); BASOPHIL # 0.1 TH/MM3 (0-0.2); BASOPHIL % 0.7 % (0.0-2.0); EOSINOPHIL # 0.1 TH/MM3 (0-0.4); EOSINOPHIL % 0.9 % (0.0-4.0); HEMATOCRIT 39.8 % (39.0-51.0); HEMOGLOBIN 13.2 GM/DL (13.0-17.0); LYMPH % 13.8 % (9.0-44.0); LYMPHOCYTE # 1.3 TH/MM3 (1.0-4.8); MEAN CELL VOLUME 68.8 FL (80.0-100.0); MEAN CORPUSCULAR HEMOGLOBIN 22.8 PG (27.0-34.0); MEAN CORPUSCULAR HGB CONC 33.1 % (32.0-36.0); MEAN PLATELET VOLUME 8.6 FL (7.0-11.0); MONO % 7.4 % (0.0-8.0); MONOCYTE # 0.7 TH/MM3 (0-0.9); NEUT % 77.2 % (16.0-70.0); PLATELET COUNT 269 TH/MM3 (150-450); RED BLOOD COUNT 5.79 MIL/MM3 (4.50-5.90); RED CELL DISTRIBUTION WIDTH 19.8 % (11.6-17.2); WHITE BLOOD COUNT 9.2 TH/MM3 (4.0-11.0)
[2017-08-07 16:53] LABS: BILIRUBIN, URINE NEG (NEG); BLOOD, URINE NEG (NEG); GLUCOSE,URINE NEG (NEG); KETONE, URINE NEG (NEG); NITRITE,URINE NEG (NEG); PH, URINE 5.5 (5.0-8.5); URINE COLOR YELLOW (YELLW/STRAW); URINE LEUKOCYTE ESTERASE NEG (NEG)
[2017-08-07 18:14] VITALS: BP 132/82; PULSE 77; RESP 16; O2SAT 99
--- NOTE | 2017-08-07 18:15 | HHI.HP ---
HPI Service CP Hospitalists Primary Care Physician Unknown Admission Diagnosis chest pain; CHF exacerbation Travel History International Travel<30 Days: No Contact w/Intl Traveler <30 Da: No Traveled to Known Affected Are: No Past Family Social History Past Medical History cad, hx stent severe cardiomyopathy. dilated. EF 20% 05/14 bivaicd. hx infected defibrillator questionable hx afib hx ?cva. pt did receive tpa for docuneted weakness but neuro puts in notes ?functional weakness ?psych they did recommend anticoagulation. dm 2. poor control htn hyperlipidemia depression diabetic peripheral neuropathy Reported Medications Reported Meds & Active Scripts Active Atorvastatin (Atorvastatin Calcium) 80 Mg Tab 80 Mg PO HS Aspirin 81 (Aspirin) 81 Mg Tabdr 81 Mg PO DAILY Spironolactone 25 Mg Tab 25 Mg PO DAILY Gabapentin 100 Mg Cap 100 Mg PO TID Reported Eliquis (Apixaban) 5 Mg Tab 5 Mg PO DAILY Coreg (Carvedilol) 6.25 Mg Tab 12.5 Mg PO BID Glucophage (Metformin HCl) 500 Mg Tab 500 Mg PO BIDPC Glyburide 5 Mg Tab 5 Mg PO BID Take with meals at the same time each day Allergies: Coded Allergies: hydromorphone (Verified Allergy, Severe, Hives, 08/07/17) phenobarbital (Unverified Allergy, Unknown, 08/07/17) Family History brother with cad 40s Social History tob less 1/2 ppd no etoh hx drug abuse Physical Exam Vital Signs nad heart reg lng cta no jvd abd s/nt ext pitting edema lower ext up to thighs Vital Signs Date Time Temp Pulse Resp B/P (MAP) Pulse Ox O2 Delivery O2 Flow Rate FiO2 08/07/17 18:14 77 16 132/82 (99) 99 Room Air 08/07/17 14:36 100 Room Air 08/07/17 13:55 77 23 100 Room Air 08/07/17 13:41 98.4 77 20 111/69 (83) 100 Laboratory Laboratory Tests Test 08/07/17 14:35 08/07/17 15:50 08/07/17 16:30 Prothrombin Time 12.7 Prothromb Time International Ratio 1.3 Activated Partial Thromboplast Time 27.0 Blood Urea Nitrogen 25 Creatinine 1.33 Random Glucose 160 Total Protein 6.5 Albumin 2.8 Calcium Level 8.0 Magnesium Level 1.9 Alkaline Phosphatase 238 Aspartate Amino Transf (AST/SGOT) 34 Alanine Aminotransferase (ALT/SGPT) 26 Total Bilirubin 1.3 Sodium Level 140 Potassium Level 4.3 Chloride Level 109 Carbon Dioxide Level 21.9 Anion Gap 9 Estimat Glomerular Filtration Rate 71 Total Creatine Kinase 66 Troponin I LESS THAN 0.02 B-Type Natriuretic Peptide 734 White Blood Count 9.2 Red Blood Count 5.79 Hemoglobin 13.2 Hematocrit 39.8 Mean Corpuscular Volume 68.8 Mean Corpuscular Hemoglobin 22.8 Mean Corpuscular Hemoglobin Concent 33.1 Red Cell Distribution Width 19.8 Platelet Count 269 Mean Platelet Volume 8.6 Neutrophils (%) (Auto) 77.2 Lymphocytes (%) (Auto) 13.8 Monocytes (%) (Auto) 7.4 Eosinophils (%) (Auto) 0.9 Basophils (%) (Auto) 0.7 Neutrophils # (Auto) 7.1 Lymphocytes # (Auto) 1.3 Monocytes # (Auto) 0.7 Eosinophils # (Auto) 0.1 Basophils # (Auto) 0.1 CBC Comment DIFF FINAL Differential Comment Urine Color YELLOW Urine Turbidity CLEAR Urine pH 5.5 Urine Specific [place] 1.021 Urine Protein 30 Urine Glucose (UA) NEG Urine Ketones NEG Urine Occult Blood NEG Urine Nitrite NEG Urine Bilirubin NEG Urine Urobilinogen 4.0 Urine Leukocyte Esterase NEG Urine RBC LESS THAN 1 Urine WBC LESS THAN 1 Microscopic Urinalysis Comment CULT NOT INDICATED Result Diagram: 08/07/17 1550 08/07/17 1435 Caprini VTE Risk Assessment Caprini VTE Risk Assessment: Mod/High Risk (score >= 2) Caprini Risk Assessment Model Point Value = 1 Point Value = 2 Point Value = 3 Point Value = 5 Age 41-60 Minor surgery BMI > 25 kg/m2 Swollen legs Varicose veins or History of unexplained or recurrent spontaneous Oral contraceptives or hormone replacement Sepsis (< 1 month) Serious lung disease, including pneumonia (< 1 month) Abnormal pulmonary function Acute myocardial infarction Congestive heart failure (< 1 month) History of inflammatory bowel disease Medical patient at bed rest Age 61-74 Arthroscopic surgery Major open surgery (> 45 min) Laparoscopic surgery (> 45 min) Malignancy Confined to bed (> 72 hours) Immobilizing plaster cast Central venous access Age >= 75 History of VTE Family history of VTE Factor V Leiden Prothrombin [id number] Lupus anticoagulant Anticardiolipin antibodies Elevated serum homocysteine Heparin-induced thrombocytopenia Other congenital or acquired thrombophilia Stroke (< 1 month) Elective arthroplasty Hip, pelvis, or leg fracture Acute spinal cord injury (< 1 month) Prophylaxis Regimen Total Risk Factor Score Risk Level Prophylaxis Regimen 0-1 Low Early ambulation 2 Moderate Order ONE of the following: *Sequential Compression Device (SCD) *Heparin 5000 units SQ BID 3-4 Higher Order ONE of the following medications: *Heparin 5000 units SQ TID *Enoxaparin/Lovenox 40 mg SQ daily (WT < 150 kg, CrCl > 30 mL/min) *Enoxaparin/Lovenox 30 mg SQ daily (WT < 150 kg, CrCl > 10-29 mL/min) *Enoxaparin/Lovenox 30 mg SQ BID (WT < 150 kg, CrCl > 30 mL/min) AND/OR *Sequential Compression Device (SCD) 5 or more Highest Order ONE of the following medications: *Heparin 5000 units SQ TID (Preferred with Epidurals) *Enoxaparin/Lovenox 40 mg SQ daily (WT < 150 kg, CrCl > 30 mL/min) *Enoxaparin/Lovenox 30 mg SQ daily (WT < 150 kg, CrCl > 10-29 mL/min) *Enoxaparin/Lovenox 30 mg SQ BID (WT < 150 kg, CrCl > 30 mL/min) AND *Sequential Compression Device (SCD) Assessment and Plan Problem List: (1) Acute exacerbation of congestive heart failure ICD Codes: I50.9 - Heart failure, unspecified Status: Acute Plan: 1. acute systolic chf. lower extremity edema. EF 20% hx aicd/pm 2. c/o right back pain. ?worse with eating 3. dm 2. poor control 4. 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 htn 6. possible hx cva. s/p tpa. dx seemed to be in question per neuro documentation but they recommended anticoagulation. there is vague mentions of pafib in notes but we have no definitive proof. pt doesn't know cont iv lasix. strict i/o. weigh daily. 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 pt knew to cp cont coreg. add lisinipril. cont aldactone cont oha. hold glucophage while diuresing. pt might need insulin. check hgba1c. check urine prot/cr ratio he recently established with [facility] pcp. adjust his neurontin to avoid daytime sleepiness will check stool guiac and iron studies. low mcv noted. (2) DM type 2 (diabetes mellitus, type 2) ICD Codes: E11.9 - Type 2 diabetes mellitus without complications Status: Chronic (3) Hypertension ICD Codes: I10 - Essential (primary) hypertension Status: Chronic (4) CAD (coronary artery disease) ICD Codes: I25.10 - Atherosclerotic heart disease of [place] coronary artery without angina pectoris Status: Chronic Physician Certification 2 Midnight Certification Type: Admission for Inpatient Services Order for Inpatient Services 3The services are ordered in accordance with Medicare regulations or non- Medicare payer requirements, as applicable. In the case of services not specified as inpatient-only, they are appropriately provided as inpatient services in accordance with the 2-midnight benchmark. Estimated LOS (days): 3 3 days is the estimated time the patient will need to remain in the hospital, assuming treatment plan goals are met and no additional complications. Post-Hospital Plan: Home Problem Qualifiers (1) Acute exacerbation of congestive heart failure: Qualified Codes: I50.9 - Heart failure, unspecified Rosalino Hanley MD August 07, 2017 18:15
[2017-08-07] MEDS ORDERED: DEXTROSE 50% IN WATER 50 ML VIAL(D50) IV PUSH PRN (18:30)
[2017-08-07] MEDS ORDERED: GLUCAGON 1 MG/ML VIAL OTHER PRN (18:30)
[2017-08-07 20:00] VITALS: BP 117/81; PULSE 74; RESP 18; TEMP 97.4; O2SAT 100
[2017-08-07 21:00] VITALS: PULSE 71
[2017-08-07] MEDS: INSULIN ASPART SUPPLEMENTAL SCALE SQ SCH (21:00)
[2017-08-07] MEDS ORDERED: glyBURIDE 5 MG TAB PO SCH (21:00)
[2017-08-07] MEDS ORDERED: GABAPENTIN 100 MG CAP PO SCH (21:00)
[2017-08-07] MEDS: APIXABAN 5 MG TABLET PO SCH (22:24)
[2017-08-07] MEDS: ATORVASTATIN 80 MG TAB PO SCH (22:25)
[2017-08-07] MEDS: CARVEDILOL 12.5 MG TAB PO SCH (22:25)
[2017-08-07] MEDS: SIMETHICONE 125 MG CHEWABLE TAB PO SCH (22:30)
[2017-08-08] VITALS (9 sets, daily range): BP systolic 99–113; BP diastolic 60–81; PULSE 63–81; RESP 16–17; TEMP 97.2–98; O2SAT 97–100
[2017-08-08] MEDS ORDERED: GABAPENTIN 300 MG CAP PO ONE (06:00)
[2017-08-08] MEDS: SIMETHICONE 125 MG CHEWABLE TAB PO SCH ×3 (06:13→21:58)
--- NOTE | 2017-08-08 07:38 | PD.CONS ---
HPI Consult Requested By Primary Care Physician Unknown History of Present Illness 42-year-old male with a past medical history of CAD, cardiomyopathy EF 20% s/p AICD, systolic CHF, cryptogenic stroke on anticoagulation, HTN, HLD, diabetes mellitus with neuropathy, depression who presented for lower extremity swelling. The patient is not following with any copra sampler. He has been out of his medications for the past month, specifically Lasix. He presents complaining of chest pain, shortness of breath, and lower extremity swelling. He states he has been having chest pain constantly for the past month, although he relates this to his neuropathy. It appears that he had a nonischemic Lexiscan here in March. He has been restarted on IV Lasix and reports good urine output, however reports shortness of breath and lower extremity swelling have not improved yet. Initial EKG with paced rhythm, no significant change from April. Initial troponin 0 0.02. Chest x-ray at admission without evidence of gross failure. (Ceferino Jo) Review of Systems Complains of back pain Otherwise negative except as stated in HPI (Ceferino Jo) Past Family Social History Allergies: Coded Allergies: hydromorphone (Verified Allergy, Severe, Hives, 08/07/17) phenobarbital (Unverified Allergy, Unknown, 08/07/17) Past Medical History cad, hx stent severe cardiomyopathy. Chronic systolic CHF. EF 20% 05/14. bi-v aicd. hx infected defibrillator hx ?cva. pt did receive tpa for documented weakness but neuro puts in notes ?functional weakness ?psych they did recommend anticoagulation. dm 2.diabetic peripheral neuropathy htn hyperlipidemia depression Reported Medications Reported Meds & Active Scripts Active Atorvastatin (Atorvastatin Calcium) 80 Mg Tab 80 Mg PO HS Aspirin 81 (Aspirin) 81 Mg Tabdr 81 Mg PO DAILY Spironolactone 25 Mg Tab 25 Mg PO DAILY Gabapentin 100 Mg Cap 100 Mg PO TID Reported Eliquis (Apixaban) 5 Mg Tab 5 Mg PO DAILY Coreg (Carvedilol) 6.25 Mg Tab 12.5 Mg PO BID Glucophage (Metformin HCl) 500 Mg Tab 500 Mg PO BIDPC Glyburide 5 Mg Tab 5 Mg PO BID Take with meals at the same time each day Active Ordered Medications Current Medications Medications (Trade) Dose Ordered Sig/Stacy Route Start Time Stop Time Status Last Admin (NS Flush) 2 ml UNSCH PRN IVF 08/07/17 14:30 (NovoLOG SUPPLEMENTAL SCALE) 1 ACHS SLIDING SCALE SQ 08/07/17 21:00 (Lasix Inj) 40 mg BID@,18 IV PUSH 08/08/17 09:00 (Ecotrin Ec) 81 mg DAILY PO 08/08/17 09:00 (Lipitor) 80 mg HS PO 08/07/17 21:00 08/07/17 22:25 (Coreg) 12.5 mg BID PO 08/07/17 21:00 08/07/17 22:25 (Diabeta) 5 mg BID PO 08/07/17 21:00 08/07/17 22:27 (Aldactone) 25 mg DAILY PO 08/08/17 09:00 (D50w (Vial) Inj) 50 ml UNSCH PRN IV PUSH 08/07/17 18:30 (Glucagon Inj) 1 mg UNSCH PRN OTHER 08/07/17 18:30 (Prinivil) 5 mg DAILY PO 08/08/17 09:00 (Neurontin) 200 mg HS PO 08/07/17 21:00 08/07/17 22:28 (Phazyme Chew) 125 mg Q8HR PO 08/07/17 22:00 08/08/17 06:13 (Eliquis) 5 mg BID PO 08/07/17 21:00 08/07/17 22:24 ([place] 5-325 Mg) 1 tab Q4H PRN PO 08/07/17 20:45 Family History brother with cad 40s Social History tob less 1/2 ppd no etoh hx drug abuse (Ceferino Jo) Physical Exam Vital Signs Vital Signs Date Time Temp Pulse Resp B/P (MAP) Pulse Ox O2 Delivery O2 Flow Rate FiO2 08/08/17 06:00 97.3 69 17 108/74 (85) 99 08/08/17 00:00 97.2 69 17 103/67 (79) 97 08/07/17 20:00 97.4 74 18 117/81 (93) 100 08/07/17 18:14 77 16 132/82 (99) 99 Room Air 08/07/17 14:36 100 Room Air 08/07/17 13:55 77 23 100 Room Air 08/07/17 13:41 98.4 77 20 111/69 (83) 100 Physical Exam GENERAL: Well-developed well-nourished. Laying flat in bed in no acute distress. NECK: No carotid bruits. No JVD. CARDIOVASCULAR: Regular rate and rhythm. No murmur appreciated. RESPIRATORY: No accessory muscle use. Clear to auscultation. Breath sounds equal bilaterally. MUSCULOSKELETAL: No clubbing or cyanosis. 2+ tense lower extremity edema. NEUROLOGICAL: Awake and alert. Normal speech. Laboratory Laboratory Tests Test 08/07/17 14:35 08/07/17 15:50 08/07/17 16:30 08/08/17 04:55 Prothrombin Time 12.7 Prothromb Time International Ratio 1.3 Activated Partial Thromboplast Time 27.0 Blood Urea Nitrogen 25 Creatinine 1.33 Random Glucose 160 Total Protein 6.5 Albumin 2.8 Calcium Level 8.0 Magnesium Level 1.9 Alkaline Phosphatase 238 Aspartate Amino Transf (AST/SGOT) 34 Alanine Aminotransferase (ALT/SGPT) 26 Total Bilirubin 1.3 Sodium Level 140 Potassium Level 4.3 Chloride Level 109 Carbon Dioxide Level 21.9 Anion Gap 9 Estimat Glomerular Filtration Rate 71 Total Creatine Kinase 66 Troponin I LESS THAN 0.02 B-Type Natriuretic Peptide 734 White Blood Count 9.2 Red Blood Count 5.79 Hemoglobin 13.2 Hematocrit 39.8 Mean Corpuscular Volume 68.8 Mean Corpuscular Hemoglobin 22.8 Mean Corpuscular Hemoglobin Concent 33.1 Red Cell Distribution Width 19.8 Platelet Count 269 Mean Platelet Volume 8.6 Neutrophils (%) (Auto) 77.2 Lymphocytes (%) (Auto) 13.8 Monocytes (%) (Auto) 7.4 Eosinophils (%) (Auto) 0.9 Basophils (%) (Auto) 0.7 Neutrophils # (Auto) 7.1 Lymphocytes # (Auto) 1.3 Monocytes # (Auto) 0.7 Eosinophils # (Auto) 0.1 Basophils # (Auto) 0.1 CBC Comment DIFF FINAL Differential Comment Hemoglobin A1c 9.0 Urine Color YELLOW Urine Turbidity CLEAR Urine pH 5.5 Urine Specific [place] 1.021 Urine Protein 30 Urine Glucose (UA) NEG Urine Ketones NEG Urine Occult Blood NEG Urine Nitrite NEG Urine Bilirubin NEG Urine Urobilinogen 4.0 Urine Leukocyte Esterase NEG Urine RBC LESS THAN 1 Urine WBC LESS THAN 1 Microscopic Urinalysis Comment CULT NOT INDICATED Urine Random Creatinine 111 Urine Random Total Protein 80 Urine Protein/Creatinine Ratio 0.72 (Ceferino Jo) Result Diagram: 08/07/17 1550 08/07/17 1435 Imaging Last Impressions Chest X-Ray 08/07/17 1422 Signed Impressions: Service Date/Time: Monday, August 07, 2017 14:24 - CONCLUSION: 1. Compensated mild cardiomegaly. Miguel Martinez MD (Ceferino Jo) Assessment and Plan Assessment and Plan 42-year-old male with a past medical history of CAD, cardiomyopathy EF 20% s/p AICD, systolic CHF, cryptogenic stroke on anticoagulation, HTN, HLD, diabetes mellitus with neuropathy, depression who presented for lower extremity swelling. The patient is not following with any copra sampler. He has been out of his medications for the past month, specifically Lasix. Acute exacerbation of chronic systolic CHF: Diuresis resumed with IV Lasix and oral Aldactone. Monitor I's and O's. Cardiomyopathy: EF 20%. AICD in place. Carvedilol resumed. Lisinopril was added, monitor to see if BP tolerates. CAD: Nonischemic Lexiscan in March. Initial troponin negative, repeat. Aspirin and statin. History of cryptogenic stroke: Neurology started the patient on Eliquis. No definite A. fib documented. Discussed Condition With Patient, RN, Dr. Boateng (Ceferino Jo) Assessment and Plan I ICM with recent SPECT no ischemia. + anterior infarct echo EF 20% medication noncompliance intravenous diuretic RENÉE hose leg elevation ACEi AICD in place. (Jose Miguel Boateng MD) Ceferino Jo August 08, 2017 07:38 Jose Miguel Boateng MD August 08, 2017 08:20
[2017-08-08] MEDS: ACETAMINOPHEN/HYDROcodone 325 MG/5 MG TAB PO PRN ×4 (07:44→21:58)
[2017-08-08 07:59] LABS: BLOOD UREA NITROGEN 24 MG/DL (7-18); CREATININE 1.33 MG/DL (0.60-1.30); GLOMERULAR FILTRATION RATE 71 ML/MIN (>89)
[2017-08-08 08:00] LABS: BICARBONATE 22.6 MEQ/L (21.0-32.0); CALCIUM 8.3 MG/DL (8.5-10.1); CHLORIDE 107 MEQ/L (98-107); GLUCOSE,RANDOM 59 MG/DL (74-106); PHOSPHORUS 4.8 MG/DL (2.5-4.9); SODIUM (NA) 139 MEQ/L (136-145)
[2017-08-08] MEDS: INSULIN ASPART SUPPLEMENTAL SCALE SQ SCH ×4 (08:00→21:00)
[2017-08-08 08:01] LABS: % SATURATION IRON PROFILE 53.2 % (20-50); FERRITIN 47 NG/ML (26-388); IRON (FE) 35 MCG/DL (65-175); TOTAL IRON BINDING CAPACITY 66 MCG/DL (250-450)
[2017-08-08] MEDS: CARVEDILOL 12.5 MG TAB PO SCH ×2 (09:00→21:58)
[2017-08-08] MEDS: APIXABAN 5 MG TABLET PO SCH ×2 (09:00→21:58)
[2017-08-08] MEDS: LISINOPRIL 5 MG TAB PO SCH (09:00)
[2017-08-08] MEDS ORDERED: SPIRONOLACTONE 25 MG TAB PO SCH (09:00)
[2017-08-08] MEDS: FUROSEMIDE 40 MG/4 ML VIAL IV PUSH SCH ×2 (09:21→18:00)
[2017-08-08] MEDS: ASPIRIN EC 81 MG TABEC PO SCH (09:21)
--- NOTE | 2017-08-08 09:37 | EKG ---
Date Performed: 08/07/2017 Time Performed: 14:52:50 PTAGE: 42 years EKG: ELECTRONIC VENTRICULAR PACEMAKER ABNORMAL RHYTHM ECG Since the PREVIOUS TRACING , no significant change noted PREVIOUS TRACIN05/04/2017 21.27 DOCTOR: Krys Lind Interpretating Date/Time 08/08/2017 09:37:16
--- NOTE | 2017-08-08 12:11 | PD.PN.STU ---
Subjective Remarks Mr. Abad is a 42yo black male with CHF, dilated cardiomyopathy, and uncontrolled DM2, hospital day 2 for SOB, lower leg swelling, and back pain. Today he reports his swelling is improving but still present. He is urinating frequently and denies shortness of breath while sitting in bed. He continues to experience pain which he has difficulty localizing and describing. He reports a "pressure" in his chest and pain in right upper back below the scapula. 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 He denies a hx of acid reflux. His bowel movements are a "yellow color" and are less in volume over the past 1-2months. He denies blood in his stool, weight loss, fevers, or night sweats. Diet is mostly fast food. During the interview he frequently Objective Vitals Vital Signs Date Time Temp Pulse Resp B/P (MAP) Pulse Ox O2 Delivery O2 Flow Rate FiO2 08/08/17 09:00 98.0 68 16 113/81 (92) 100 08/08/17 06:00 97.3 69 17 108/74 (85) 99 08/08/17 04:00 66 08/08/17 00:00 97.2 69 17 103/67 (79) 97 08/08/17 00:00 67 08/07/17 21:00 71 08/07/17 20:00 97.4 74 18 117/81 (93) 100 08/07/17 18:14 77 16 132/82 (99) 99 Room Air 08/07/17 14:36 100 Room Air 08/07/17 13:55 77 23 100 Room Air 08/07/17 13:41 98.4 77 20 111/69 (83) 100 I/O 08/07/17 08/07/17 08/07/17 08/08/17 08/08/17 08/08/17 07:00 15:00 23:00 07:00 15:00 23:00 Intake Total 120 ml Output Total 1400 ml 700 ml Balance -1400 ml -580 ml Intake Oral 120 ml Output Urine Total 1400 ml 700 ml # Voids 1 # Bowel Movements 0 Result Diagram: 08/07/17 1550 08/08/17 0455 Annette Bryant August 08, 2017 12:11
[2017-08-08] MEDS ORDERED: PANTOPRAZOLE SOD 40 MG DELAYED RELEASE TAB PO ONE (14:30)
[2017-08-08] MEDS: glyBURIDE 5 MG TAB PO SCH (17:58)
--- NOTE | 2017-08-08 20:47 | HHI.PR ---
Subjective Remarks still with ruq and back pain less lower ext edema Objective Vitals heart reg lung cta abd snt ext improved pitting edema Vital Signs Date Time Temp Pulse Resp B/P (MAP) Pulse Ox O2 Delivery O2 Flow Rate FiO2 08/08/17 16:00 97.6 65 16 102/80 (87) 99 08/08/17 16:00 63 08/08/17 12:00 97.4 70 16 105/75 (85) 100 08/08/17 09:00 98.0 68 16 113/81 (92) 100 08/08/17 06:00 97.3 69 17 108/74 (85) 99 08/08/17 04:00 66 08/08/17 00:00 97.2 69 17 103/67 (79) 97 08/08/17 00:00 67 08/07/17 21:00 71 08/08/17 08/08/17 08/09/17 15:00 23:00 07:00 Intake Total 1180 ml Output Total 1000 ml Balance 180 ml Intake Oral 1180 ml Output Urine Total 1000 ml # Voids 4 # Bowel Movements 0 Result Diagram: 08/07/17 1550 08/08/17 0455 A/P Problem List: (1) Acute exacerbation of congestive heart failure ICD Codes: I50.9 - Heart failure, unspecified Status: Acute Plan: 1. acute systolic chf. lower extremity edema. EF 20% hx aicd/pm 2. c/o right back pain. ?worse with eating 3. dm 2. poor control 4. 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 htn 6. possible hx cva. s/p tpa. dx seemed to be in question per neuro documentation but they recommended anticoagulation. there is vague mentions of pafib in notes but we have no definitive proof. pt doesn't know cont iv lasix. strict i/o. weigh daily. 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 pt new to cp cont coreg. added lisinipril. cont oha. hold glucophage while diuresing. pt might need insulin. check hgba1c now down to 9.. he recently established with cp pcp. adjusting his neurontin to avoid daytime sleepiness will check stool guiac pt is currently homeless so will discuss with CM (2) DM type 2 (diabetes mellitus, type 2) ICD Codes: E11.9 - Type 2 diabetes mellitus without complications Status: Chronic (3) Hypertension ICD Codes: I10 - Essential (primary) hypertension Status: Chronic (4) CAD (coronary artery disease) ICD Codes: I25.10 - Atherosclerotic heart disease of [place] coronary artery without angina pectoris Status: Chronic Problem Qualifiers (1) Acute exacerbation of congestive heart failure: Qualified Codes: I50.9 - Heart failure, unspecified Rosalino Hanley MD August 08, 2017 20:47
[2017-08-08] MEDS: ATORVASTATIN 80 MG TAB PO SCH (21:58)
[2017-08-08] MEDS: GABAPENTIN 300 MG CAP PO SCH (21:58)
[2017-08-09] VITALS (11 sets, daily range): BP systolic 96–116; BP diastolic 61–79; PULSE 62–103; RESP 16–20; TEMP 97.3–97.9; O2SAT 100
[2017-08-09] MEDS: SIMETHICONE 125 MG CHEWABLE TAB PO SCH ×3 (05:53→20:54)
--- NOTE | 2017-08-09 08:28 | PD.CARD.PN ---
Subjective Subjective Remarks The patient has multiple complaints although these are mostly chronic. His acute complaints today are that he felt a little wheezy this morning, he feels like he may need therapy for his legs to help him walk, and that his stool color has changed. He still feels some shortness of breath, but feels like it has been improving, has been ambulating in the room. He has chronic discomfort from around his defibrillator site, has been constant and present since it was placed last year. He states his device was interrogated about a month ago in [place] and told it was functioning normally, no palpitations since last interrogation. He reports good urine output and legs are swelling less. Objective Medications Current Medications Medications (Trade) Dose Ordered Sig/Stacy Route Start Time Stop Time Status Last Admin (NS Flush) 2 ml UNSCH PRN IVF 08/07/17 14:30 (NovoLOG SUPPLEMENTAL SCALE) 1 ACHS SLIDING SCALE SQ 08/07/17 21:00 08/08/17 17:00 (Lasix Inj) 40 mg BID@ IV PUSH 08/08/17 09:00 08/08/17 18:00 (Ecotrin Ec) 81 mg DAILY PO 08/08/17 09:00 08/08/17 09:21 (Lipitor) 80 mg HS PO 08/07/17 21:00 08/08/17 21:58 (Coreg) 12.5 mg BID PO 08/07/17 21:00 08/08/17 21:58 (D50w (Vial) Inj) 50 ml UNSCH PRN IV PUSH 08/07/17 18:30 (Glucagon Inj) 1 mg UNSCH PRN OTHER 08/07/17 18:30 (Prinivil) 5 mg DAILY PO 08/08/17 09:00 08/08/17 09:00 (Phazyme Chew) 125 mg Q8HR PO 08/07/17 22:00 08/09/17 05:53 (Eliquis) 5 mg BID PO 08/07/17 21:00 08/08/17 21:58 ([place] 5-325 Mg) 1 tab Q4H PRN PO 08/07/17 20:45 08/08/17 21:58 (Neurontin) 300 mg HS PO 08/08/17 21:00 08/08/17 21:58 (Diabeta) 5 mg BID@,17 PO 08/08/17 17:00 08/08/17 17:58 (Protonix) 40 mg DAILY PO 08/09/17 09:00 Vital Signs / I&O Vital Signs Date Time Temp Pulse Resp B/P (MAP) Pulse Ox O2 Delivery O2 Flow Rate FiO2 08/09/17 05:00 97.9 69 16 109/71 (84) 100 08/09/17 04:06 67 08/09/17 04:00 Room Air 08/09/17 00:15 67 08/09/17 00:00 Room Air 08/08/17 23:28 97.4 65 16 103/60 (74) 100 08/08/17 20:02 81 08/08/17 20:00 Room Air 08/08/17 20:00 97.9 68 17 99/76 (84) 99 08/08/17 16:00 97.6 65 16 102/80 (87) 99 08/08/17 16:00 63 08/08/17 12:00 97.4 70 16 105/75 (85) 100 08/08/17 09:00 98.0 68 16 113/81 (92) 100 I/O 08/08/17 08/08/17 08/08/17 08/09/17 08/09/17 08/09/17 07:00 15:00 23:00 07:00 15:00 23:00 Intake Total 120 ml 1180 ml 960 ml Output Total 700 ml 1000 ml 2500 ml Balance -580 ml 180 ml -1540 ml Intake Oral 120 ml 1180 ml 960 ml Output Urine Total 700 ml 1000 ml 2500 ml # Voids 4 # Bowel Movements 0 0 1 Physical Exam GENERAL: Well-developed well-nourished. In no acute distress on room air. NECK: No carotid bruits. No JVD. CARDIOVASCULAR: Regular rate and rhythm. No murmur appreciated. Defibrillator site on left chest wall with no evidence of infection and nontender to palpation RESPIRATORY: No accessory muscle use. Clear to auscultation. Breath sounds equal bilaterally. MUSCULOSKELETAL: No clubbing or cyanosis. 1+ edema. NEUROLOGICAL: Awake and alert. Normal speech. Imaging Last Impressions Chest X-Ray 08/07/17 8582 Signed Impressions: Service Date/Time: Monday, August 07, 2017 14:24 - CONCLUSION: 1. Compensated mild cardiomegaly. Miguel Martinez MD Assessment and Plan Assessment and Plan 42-year-old male with a past medical history of CAD, cardiomyopathy EF 20% s/p AICD, systolic CHF, cryptogenic stroke on anticoagulation, HTN, HLD, diabetes mellitus with neuropathy, depression who presented for lower extremity swelling. The patient is not following with any slip cover estimator. He has been out of his medications for the past month, specifically Lasix. Acute exacerbation of chronic systolic CHF: Patient has had excellent diuresis with IV Lasix and oral Aldactone. Monitor I's and O's. Monitor renal function and electrolytes. Cardiomyopathy: EF 20%. AICD in place. Carvedilol resumed. Lisinopril was added in BP seems to tolerate this well. CAD: Nonischemic Lexiscan in March. Troponin 0.022. Aspirin and statin. History of cryptogenic stroke: Neurology started the patient on Eliquis. No definite A. fib documented. Ceferino Jo August 09, 2017 08:28
[2017-08-09] MEDS: PANTOPRAZOLE SOD 40 MG DELAYED RELEASE TAB PO SCH (08:30)
[2017-08-09] MEDS: LISINOPRIL 5 MG TAB PO SCH (08:30)
[2017-08-09] MEDS ORDERED: RESP: ALBUTEROL 1.25 MG/3 ML NEB (PRN) NEB (08:30)
[2017-08-09] MEDS: APIXABAN 5 MG TABLET PO SCH ×2 (08:31→20:55)
[2017-08-09] MEDS: INSULIN ASPART SUPPLEMENTAL SCALE SQ SCH ×4 (08:31→20:55)
[2017-08-09] MEDS: CARVEDILOL 12.5 MG TAB PO SCH ×2 (08:31→20:54)
[2017-08-09] MEDS: ACETAMINOPHEN/HYDROcodone 325 MG/5 MG TAB PO PRN ×3 (08:31→18:04)
[2017-08-09] MEDS: ASPIRIN EC 81 MG TABEC PO SCH (08:31)
[2017-08-09] MEDS: FUROSEMIDE 40 MG/4 ML VIAL IV PUSH SCH ×2 (08:31→18:03)
[2017-08-09] MEDS: glyBURIDE 5 MG TAB PO SCH (08:31)
--- NOTE | 2017-08-09 08:54 | HHI.PR ---
Subjective Remarks good diuresis yesterday Objective Vitals nad heart reg lung good air entry abd s/nt/bs ext 1plus edema lower ext yanick and trace above knees. improving. mild scrotal edema Vital Signs Date Time Temp Pulse Resp B/P (MAP) Pulse Ox O2 Delivery O2 Flow Rate FiO2 08/09/17 05:00 97.9 69 16 109/71 (84) 100 08/09/17 04:06 67 08/09/17 04:00 Room Air 08/09/17 00:15 67 08/09/17 00:00 Room Air 08/08/17 23:28 97.4 65 16 103/60 (74) 100 08/08/17 20:02 81 08/08/17 20:00 Room Air 08/08/17 20:00 97.9 68 17 99/76 (84) 99 08/08/17 16:00 97.6 65 16 102/80 (87) 99 08/08/17 16:00 63 08/08/17 12:00 97.4 70 16 105/75 (85) 100 08/08/17 09:00 98.0 68 16 113/81 (92) 100 Result Diagram: 08/07/17 1550 08/08/17 0455 A/P Problem List: (1) Acute exacerbation of congestive heart failure ICD Codes: I50.9 - Heart failure, unspecified Status: Acute Plan: 1. acute systolic chf. lower extremity edema. EF 20% hx aicd/pm 2. c/o right back pain. ?worse with eating 3. dm 2. poor control. hgba1c now down to 9.. 4. 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 htn 6. possible hx cva. s/p tpa. dx seemed to be in question per neuro documentation but they recommended anticoagulation. there is vague mentions of pafib in notes but we have no definitive proof. pt doesn't know cont iv lasix. strict i/o. weigh daily. bmp in AM. bmp today pending establishing claims adjustor. pt new to [facility] cont coreg. added lisinipril. monitor bp convert glyburide to glipizide. titrate. hold glucophage while diuresing. pt might need insulin. he recently established with [facility] pcp. adjusting his neurontin to avoid daytime sleepiness check stool guiac f/u gb u/s pt is currently homeless so will discuss with CM (2) DM type 2 (diabetes mellitus, type 2) ICD Codes: E11.9 - Type 2 diabetes mellitus without complications Status: Chronic (3) Hypertension ICD Codes: I10 - Essential (primary) hypertension Status: Chronic (4) CAD (coronary artery disease) ICD Codes: I25.10 - Atherosclerotic heart disease of [place] coronary artery without angina pectoris Status: Chronic Problem Qualifiers (1) Acute exacerbation of congestive heart failure: Qualified Codes: I50.9 - Heart failure, unspecified Rosalino Hanley MD August 09, 2017 08:54
[2017-08-09 09:11] LABS: BICARBONATE 26.6 MEQ/L (21.0-32.0); CALCIUM 8.1 MG/DL (8.5-10.1); CREATININE 1.22 MG/DL (0.60-1.30); MAGNESIUM 1.9 MG/DL (1.5-2.5); PHOSPHORUS 3.7 MG/DL (2.5-4.9)
--- NOTE | 2017-08-09 10:27 | PD.PN.STU ---
Subjective Remarks Pt reports he is not doing well today and has multiple complaints. Reports pain is 9/10 and it feels like squeezing in his chest and back (below R. scapula). Pain is worse with eating. The edema in his legs has gotten better but his legs still feel "tight." Patient cannot remember what cardiology has told him about his heart and he becomes upset during our discussion. He believes that something is "clogged" and wants to know if he needs triple bypass surgery. He reports decreased energy and feeling weak. He used to drink 2 energy drinks daily and always had a lot of energy. Objective Vitals Vital Signs Date Time Temp Pulse Resp B/P (MAP) Pulse Ox O2 Delivery O2 Flow Rate FiO2 08/09/17 08:00 72 08/09/17 08:00 Room Air 08/09/17 05:00 97.9 69 16 109/71 (84) 100 08/09/17 04:06 67 08/09/17 04:00 Room Air 08/09/17 00:15 67 08/09/17 00:00 Room Air 08/08/17 23:28 97.4 65 16 103/60 (74) 100 08/08/17 20:02 81 08/08/17 20:00 Room Air 08/08/17 20:00 97.9 68 17 99/76 (84) 99 08/08/17 16:00 97.6 65 16 102/80 (87) 99 08/08/17 16:00 63 08/08/17 12:00 97.4 70 16 105/75 (85) 100 I/O 08/08/17 08/08/17 08/08/17 08/09/17 08/09/17 08/09/17 07:00 15:00 23:00 07:00 15:00 23:00 Intake Total 120 ml 1180 ml 960 ml Output Total 700 ml 1000 ml 2500 ml Balance -580 ml 180 ml -1540 ml Intake Oral 120 ml 1180 ml 960 ml Output Urine Total 700 ml 1000 ml 2500 ml # Voids 4 # Bowel Movements 0 0 1 Result Diagram: 08/07/17 1550 08/09/17 0828 Objective Remarks Constitutional - No acute distress, sitting comfortably Pulmonary - Equal bilateral breath sounds, no wheezes or crackles auscultated. Cardiovascular - Regular rate and rhythm. No JVD. 1+ Pitting edema in bilateral lower extremities, below knees. Abdominal - Pain with palpation in RUQ. No distension. A/P Assessment and Plan CHF exacerbation - continue lasix, edema is improving Abdominal pain - wait results of gallbladder u/s. continue protonix. Diabetes Mellitus type 2 - uncontrolled. most recent sugar was 210, consider adding another DM med Homelessness - case management consult Annette Bryant August 09, 2017 10:27
--- NOTE | 2017-08-09 11:10 | RADRPT ---
EXAM DATE/TIME: 08/09/2017 07:54 [place] COMPARISON: No previous studies available for comparison. INDICATIONS : Right upper quadrant pain. MEDICAL HISTORY : Congestive heart failure. Myocardial infarction. CVA. Head trauma. Chest pain. AFib. HTN. Diabetes. Anxiety. Substance use. Anticoagulant therapy. SURGICAL HISTORY : Pacemaker. Coronary artery stent. Cardiac cath. ENCOUNTER: Initial ACUITY: 1 day PAIN SCORE: 10/10 LOCATION: Right upper quadrant MEASUREMENTS: LIVER: 17.6 cm length COMMON DUCT: 6 mm RIGHT KIDNEY: 10.8 x 5.6 x 6.0 cm FINDINGS: LIVER: Normal echotexture without focal lesion or ductal dilatation. COMMON DUCT: No intraluminal mass or stone visualized. GALLBLADDER: 1.3 cm stone fundus of the gallbladder with prominent gallbladder wall. PANCREAS: The visualized portions are within normal limits. RIGHT KIDNEY: No evidence of hydronephrosis, stone, or mass. CONCLUSION: Gallstones are prominent gallbladder wall. No other ancillary signs of acute cholecy stitis are noted. Caleb Vazquez MD FACR on August 09, 2017 at 11:07 Board Certified Radiologist. This report was verified electronically.
[2017-08-09] MEDS: glipiZIDE 10 MG TAB PO SCH (18:03)
[2017-08-09] MEDS: ATORVASTATIN 80 MG TAB PO SCH (20:54)
[2017-08-09] MEDS: GABAPENTIN 300 MG CAP PO SCH (20:54)
[2017-08-10] VITALS (7 sets, daily range): BP systolic 91–106; BP diastolic 58–72; PULSE 66–80; RESP 14–17; TEMP 97.3–98.1; O2SAT 95–99
[2017-08-10] MEDS: SIMETHICONE 125 MG CHEWABLE TAB PO SCH ×3 (05:37→21:35)
[2017-08-10] MEDS: glipiZIDE 10 MG TAB PO SCH ×2 (08:29→17:26)
[2017-08-10] MEDS: PANTOPRAZOLE SOD 40 MG DELAYED RELEASE TAB PO SCH (08:29)
[2017-08-10] MEDS: CARVEDILOL 12.5 MG TAB PO SCH ×2 (08:29→21:35)
[2017-08-10] MEDS: APIXABAN 5 MG TABLET PO SCH ×2 (08:29→21:34)
[2017-08-10] MEDS: ASPIRIN EC 81 MG TABEC PO SCH (08:29)
[2017-08-10] MEDS: INSULIN ASPART SUPPLEMENTAL SCALE SQ SCH ×4 (08:30→21:00)
[2017-08-10] MEDS: FUROSEMIDE 40 MG/4 ML VIAL IV PUSH SCH (08:30)
--- NOTE | 2017-08-10 08:31 | PD.CARD.PN ---
Subjective Subjective Remarks Shortness of breath and lower extremity swelling are improving. The patient does complain coughing up some clear sputum. He has been having some lightheadedness when he tries to ambulate. RN and hospitalist at bedside. Objective Medications Current Medications Medications (Trade) Dose Ordered Sig/Stacy Route Start Time Stop Time Status Last Admin (NS Flush) 2 ml UNSCH PRN IVF 08/07/17 14:30 (NovoLOG SUPPLEMENTAL SCALE) 1 ACHS SLIDING SCALE SQ 08/07/17 21:00 08/09/17 20:55 (Lasix Inj) 40 mg BID@18 IV PUSH 08/08/17 09:00 08/09/17 18:03 (Ecotrin Ec) 81 mg DAILY PO 08/08/17 09:00 08/09/17 08:31 (Lipitor) 80 mg HS PO 08/07/17 21:00 08/09/17 20:54 (Coreg) 12.5 mg BID PO 08/07/17 21:00 08/09/17 20:54 (D50w (Vial) Inj) 50 ml UNSCH PRN IV PUSH 08/07/17 18:30 (Glucagon Inj) 1 mg UNSCH PRN OTHER 08/07/17 18:30 (Prinivil) 5 mg DAILY PO 08/08/17 09:00 08/09/17 08:30 (Phazyme Chew) 125 mg Q8HR PO 08/07/17 22:00 08/10/17 05:37 (Eliquis) 5 mg BID PO 08/07/17 21:00 08/09/17 20:55 ([place] 5-325 Mg) 1 tab Q4H PRN PO 08/07/17 20:45 08/09/17 18:04 (Neurontin) 300 mg HS PO 08/08/17 21:00 08/09/17 20:54 (Protonix) 40 mg DAILY PO 08/09/17 09:00 08/09/17 08:30 (Albuterol Neb) 1.25 mg Q6HR NEB PRN NEB 08/09/17 08:30 (Glucotrol) 10 mg BID@08,17 PO 08/09/17 17:00 08/09/17 18:03 Vital Signs / I&O Vital Signs Date Time Temp Pulse Resp B/P (MAP) Pulse Ox O2 Delivery O2 Flow Rate FiO2 08/10/17 04:02 66 08/10/17 00:17 67 08/10/17 00:00 97.8 66 17 94/58 (70) 97 08/09/17 20:08 97.4 69 20 101/61 (74) 100 08/09/17 20:02 71 08/09/17 20:00 Room Air 08/09/17 16:12 97.3 70 16 112/74 (87) 100 08/09/17 16:00 103 08/09/17 12:12 97.4 62 16 96/72 (80) 100 08/09/17 12:00 67 I/O 08/09/17 08/09/17 08/09/17 08/10/17 08/10/17 08/10/17 07:00 15:00 23:00 07:00 15:00 23:00 Intake Total 960 ml 560 ml Output Total 2500 ml 1200 ml Balance -1540 ml -640 ml Intake Oral 960 ml 560 ml Output Urine Total 2500 ml 1200 ml # Bowel Movements 1 1 Physical Exam GENERAL: Well-developed well-nourished. In no acute distress on room air. NECK: No carotid bruits. No JVD. CARDIOVASCULAR: Regular rate and rhythm. No murmur appreciated. Defibrillator site on left chest wall with no evidence of infection and nontender to palpation RESPIRATORY: No accessory muscle use. Clear to auscultation. Breath sounds equal bilaterally. MUSCULOSKELETAL: No clubbing or cyanosis. 1+ edema. NEUROLOGICAL: Awake and alert. Normal speech. Imaging Last Impressions Gall Bladder Ultrasound 08/09/17 0000 Signed Impressions: Service Date/Time: Wednesday, August 09, 2017 07:54 - CONCLUSION: Gallstones are prominent gallbladder wall. No other ancillary signs of acute cholecystitis are noted. Caleb Vazquez MD FACR Chest X-Ray 08/07/17 1422 Signed Impressions: Service Date/Time: Monday, August 07, 2017 14:24 - CONCLUSION: 1. Compensated mild cardiomegaly. Miguel Martinez MD Assessment and Plan Assessment and Plan 42-year-old male with a past medical history of CAD, cardiomyopathy EF 20% s/p AICD, systolic CHF, cryptogenic stroke on anticoagulation, HTN, HLD, diabetes mellitus with neuropathy, depression who presented for lower extremity swelling. The patient is not following with any head bellhop captain. He has been out of his medications for the past month, specifically Lasix. Acute exacerbation of chronic systolic CHF: Patient continues to diuresis well with IV Lasix and oral Aldactone, likely transition to oral diuresis tomorrow. Monitor I's and O's. Monitor renal function and electrolytes. Cardiomyopathy: EF 20%. AICD in place. Carvedilol resumed. Lisinopril was added, patient complains of lightheadedness, decreased to 2.5 mg. CAD: Complains of defibrillator site discomfort(prev had site infection), no typical anginal pain. Nonischemic Lexiscan in March. Troponin 0.022. Aspirin and statin. History of cryptogenic stroke: Neurology started the patient on Eliquis. No definite A. fib documented. Discharge planning, likely tomorrow. Will sign off at this time and plan to follow the patient as out patient. Please call with any questions. Discussed Condition With Patient, RN, Dr. Boateng, Ceferino Ball August 10, 2017 08:31
[2017-08-10] MEDS: LISINOPRIL 5 MG TAB PO SCH (08:36)
[2017-08-10] MEDS ORDERED: PILL SPLITTER OTHER PRN (08:45)
--- NOTE | 2017-08-10 09:01 | PD.PN.STU ---
Subjective Remarks Pt reports swelling of lower extremities continues to improve. No trouble breathing. Patient complains of feet pain while walking and states it is difficult for him to ambulate because of it. He describes it as a numbness/ tingling that only occurs when trying to walk. He had peripheral neuropathy prior to hospitalization. He is able to walk to the bathroom and around the room safely. He does not feel off balance. Objective Vitals Vital Signs Date Time Temp Pulse Resp B/P (MAP) Pulse Ox O2 Delivery O2 Flow Rate FiO2 08/10/17 04:02 66 08/10/17 00:17 67 08/10/17 00:00 97.8 66 17 94/58 (70) 97 08/09/17 20:08 97.4 69 20 101/61 (74) 100 08/09/17 20:02 71 08/09/17 20:00 Room Air 08/09/17 16:12 97.3 70 16 112/74 (87) 100 08/09/17 16:00 103 08/09/17 12:12 97.4 62 16 96/72 (80) 100 08/09/17 12:00 67 I/O 08/09/17 08/09/17 08/09/17 08/10/17 08/10/17 08/10/17 07:00 15:00 23:00 07:00 15:00 23:00 Intake Total 960 ml 560 ml Output Total 2500 ml 1200 ml Balance -1540 ml -640 ml Intake Oral 960 ml 560 ml Output Urine Total 2500 ml 1200 ml # Bowel Movements 1 1 Result Diagram: 08/07/17 1550 08/09/17 0828 Objective Remarks Resting comfortably in bed, NAD Heart rate and rhythm regular. Pacemaker on left chest is not tender to palpation. No murmurs. No JVD. Left leg has 1+ edema mid-weinstein and below. Right lower leg and foot slightly edematous. Lung sounds are clear and equal bilaterally. No wheezes or crackles auscultated Bilateral arches of feet were tender to palpation. No swelling, pallor, signs of infection. Bilateral Dorsalis pedis intact. Sensation equal bilaterally on bottoms of feet. Medications and IVs Current Medications Medications (Trade) Dose Ordered Sig/Stacy Route PRN Reason Start Time Stop Time Status Last Admin Dose Admin Sodium Chloride (NS Flush) 2 ml UNSCH PRN IVF FLUSH AFTER USING IV ACCESS 08/07/17 14:30 Insulin Aspart (NovoLOG SUPPLEMENTAL SCALE) 1 ACHS SLIDING SCALE SQ 08/07/17 21:00 08/10/17 08:30 Furosemide (Lasix Inj) 40 mg BID@18 IV PUSH 08/08/17 09:00 08/10/17 08:30 Aspirin (Ecotrin Ec) 81 mg DAILY PO 08/08/17 09:00 08/10/17 08:29 Atorvastatin Calcium (Lipitor) 80 mg HS PO 08/07/17 21:00 08/09/17 20:54 Carvedilol (Coreg) 12.5 mg BID PO 08/07/17 21:00 08/10/17 08:29 Dextrose (D50w (Vial) Inj) 50 ml UNSCH PRN IV PUSH HYPOGLYCEMIA - SEE COMMENTS 08/07/17 18:30 Glucagon (Glucagon Inj) 1 mg UNSCH PRN OTHER HYPOGLYCEMIA-SEE COMMENTS 08/07/17 18:30 Simethicone (Phazyme Chew) 125 mg Q8HR PO 08/07/17 22:00 08/10/17 05:37 Apixaban (Eliquis) 5 mg BID PO 08/07/17 21:00 08/10/17 08:29 Acetaminophen/ Hydrocodone Bitart ([place] 5-325 Mg) 1 tab Q4H PRN PO PAIN 3-10 08/07/17 20:45 08/09/17 18:04 Gabapentin (Neurontin) 300 mg HS PO 08/08/17 21:00 08/09/17 20:54 Pantoprazole Sodium (Protonix) 40 mg DAILY PO 08/09/17 09:00 08/10/17 08:29 Albuterol Sulfate (Albuterol Neb) 1.25 mg Q6HR NEB PRN NEB SOB/WHEEZING 08/09/17 08:30 Glipizide (Glucotrol) 10 mg BID@ PO 08/09/17 17:00 08/10/17 08:29 Lisinopril (Prinivil) 2.5 mg DAILY PO 08/10/17 09:00 08/10/17 08:36 Miscellaneous (Pill Splitter) 1 ea UNSCH PRN OTHER SEE LABEL COMMENTS 08/10/17 08:45 A/P Assessment and Plan CHF exacerbation - continue lasix, edema is improving. Follow up with cardiology outpt. Abdominal pain - u/s revealed gallstones but no signs of cholecystitis. Patient is afebrile. Avoid foods high in fats. Outpt management if continues to cause discomfort or worsens. Diabetes Mellitus type 2 - uncontrolled, BS 157, continue glipizide and await todays BMP to consider switching to metformin? Homelessness - case management consult D/C tomorrow Annette Bryant August 10, 2017 09:01
--- NOTE | 2017-08-10 09:20 | HHI.PR ---
Subjective Remarks pt with some chronic cp complaints lower ext swelling better. Objective Vitals heart reg lung cta abd s/nt ext trace to 1plus lower ext edema much improved. Vital Signs Date Time Temp Pulse Resp B/P (MAP) Pulse Ox O2 Delivery O2 Flow Rate FiO2 08/10/17 04:02 66 08/10/17 00:17 67 08/10/17 00:00 97.8 66 17 94/58 (70) 97 08/09/17 20:08 97.4 69 20 101/61 (74) 100 08/09/17 20:02 71 08/09/17 20:00 Room Air 08/09/17 16:12 97.3 70 16 112/74 (87) 100 08/09/17 16:00 103 08/09/17 12:12 97.4 62 16 96/72 (80) 100 08/09/17 12:00 67 Result Diagram: 08/07/17 1550 08/09/17 0828 A/P Problem List: (1) Acute exacerbation of congestive heart failure ICD Codes: I50.9 - Heart failure, unspecified Status: Acute Plan: 1. acute systolic chf. lower extremity edema. EF 20% hx aicd/pm 2. c/o right back pain. ?worse with eating 3. dm 2. poor control. hgba1c now down to 9.. 4. 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 htn 6. possible hx cva. s/p tpa. dx seemed to be in question per neuro documentation but they recommended anticoagulation. there is vague mentions of pafib in notes but we have no definitive proof. pt doesn't know cont iv lasix. strict i/o. weigh daily. bmp today pending.convert to po lasix soon establishing health concierge. pt new to [facility]. plan for d/c home tomorrow cont coreg. discussed with cardiology. lower allison converted glyburide to glipizide. titrate. hold glucophage while diuresing but resume on discharge. pt also says he uses 30units basal insulin at home hs.. adjusting his neurontin to avoid daytime sleepiness pt is currently homeless so will discuss with CM. call [facility] cm before d/c. (2) DM type 2 (diabetes mellitus, type 2) ICD Codes: E11.9 - Type 2 diabetes mellitus without complications Status: Chronic (3) Hypertension ICD Codes: I10 - Essential (primary) hypertension Status: Chronic (4) CAD (coronary artery disease) ICD Codes: I25.10 - Atherosclerotic heart disease of [place] coronary artery without angina pectoris Status: Chronic Problem Qualifiers (1) Acute exacerbation of congestive heart failure: Qualified Codes: I50.9 - Heart failure, unspecified Rosalino Hanley MD August 10, 2017 09:20
[2017-08-10 09:44] LABS: BICARBONATE 28.9 MEQ/L (21.0-32.0); CALCIUM 8.7 MG/DL (8.5-10.1); CREATININE 1.25 MG/DL (0.60-1.30)
[2017-08-10] MEDS: ACETAMINOPHEN/HYDROcodone 325 MG/5 MG TAB PO PRN ×3 (12:51→21:34)
[2017-08-10] MEDS: FUROSEMIDE 40 MG TAB PO SCH (17:26)
[2017-08-10] MEDS ORDERED: INSULIN DETEMIR 100 UNITS/ML VIAL SQ SCH (21:00)
[2017-08-10] MEDS: GABAPENTIN 300 MG CAP PO SCH (21:35)
[2017-08-10] MEDS: ATORVASTATIN 80 MG TAB PO SCH (21:35)
[2017-08-11] VITALS: BP 102/62; PULSE 65; PULSE 66; RESP 17; TEMP 98.3; O2SAT 95
[2017-08-11 04:00] VITALS: BP 108/66; PULSE 71; PULSE 77; RESP 17; TEMP 99; O2SAT 94
[2017-08-11] MEDS: SIMETHICONE 125 MG CHEWABLE TAB PO SCH ×2 (05:50→13:35)
[2017-08-11 07:03] LABS: BICARBONATE 30.2 MEQ/L (21.0-32.0); CALCIUM 8.2 MG/DL (8.5-10.1); CREATININE 1.24 MG/DL (0.60-1.30)
[2017-08-11 08:00] VITALS: PULSE 65
[2017-08-11] MEDS: INSULIN ASPART SUPPLEMENTAL SCALE SQ SCH ×2 (08:00→13:35)
[2017-08-11 08:35] VITALS: BP 103/58; PULSE 68; RESP 20; TEMP 97.4; O2SAT 100
[2017-08-11] MEDS ORDERED: LEVEMIR SQ ×2 (08:51→09:29)
[2017-08-11] MEDS ORDERED: NEUR300C PO (08:53)
[2017-08-11] MEDS ORDERED: FURO40TA PO (08:53)
[2017-08-11] MEDS ORDERED: LISI-519 PO (08:53)
[2017-08-11] MEDS ORDERED: K-TA10TA PO (08:53)
--- NOTE | 2017-08-11 08:54 | HHI.DCPOC ---
Discharge Care Plan Diagnosis: (1) CHF (congestive heart failure) (2) CAD (coronary artery disease) (3) DM type 2 (diabetes mellitus, type 2) (4) Hypertension (5) History of implantable cardioverter-defibrillator (ICD) placement (6) AICD (automatic cardioverter/defibrillator) present Goals to Promote Your Health * To prevent worsening of your condition and complications * To maintain your health at the optimal level Directions to Meet Your Goals Take your medications as prescribed Follow your dietary instruction Follow activity as directed Keep your appointments as scheduled Take your immunizations and boosters as scheduled If your symptoms worsen call your PCP, if no PCP go to Urgent Care Center or Emergency Room Smoking is Dangerous to Your Health. Avoid second hand smoke Call the 24-hour hour crisis hotline for domestic abuse at Rosalino Hanley MD August 11, 2017 08:54
[2017-08-11] MEDS: ACETAMINOPHEN/HYDROcodone 325 MG/5 MG TAB PO PRN (09:31)
[2017-08-11] MEDS: PANTOPRAZOLE SOD 40 MG DELAYED RELEASE TAB PO SCH (09:31)
[2017-08-11] MEDS: glipiZIDE 10 MG TAB PO SCH (09:31)
[2017-08-11] MEDS: ASPIRIN EC 81 MG TABEC PO SCH (09:31)
[2017-08-11] MEDS: APIXABAN 5 MG TABLET PO SCH (09:31)
[2017-08-11] MEDS: LISINOPRIL 5 MG TAB PO SCH (09:32)
[2017-08-11] MEDS: FUROSEMIDE 40 MG TAB PO SCH (09:32)
[2017-08-11] MEDS: CARVEDILOL 12.5 MG TAB PO SCH (09:32)
--- NOTE | 2017-08-11 09:35 | HHI.DS ---
Discharge Summary Admission Date August 07, 2017 at 17:14 Discharge Date: August 11, 2017 Admitting Diagnosis chest pain; CHF exacerbation (1) Acute exacerbation of congestive heart failure Diagnosis: Principal ICD Codes: I50.9 - Heart failure, unspecified Status: Acute (2) DM type 2 (diabetes mellitus, type 2) Diagnosis: Secondary ICD Codes: E11.9 - Type 2 diabetes mellitus without complications Status: Chronic (3) Hypertension Diagnosis: Secondary ICD Codes: I10 - Essential (primary) hypertension Status: Chronic (4) CAD (coronary artery disease) Diagnosis: Secondary ICD Codes: I25.10 - Atherosclerotic heart disease of [place] coronary artery without angina pectoris Status: Chronic CBC/BMP: 08/07/17 1550 08/11/17 0607 Significant Findings Laboratory Tests Test 08/09/17 08:28 08/10/17 09:05 08/11/17 06:07 Blood Urea Nitrogen 21 MG/DL (7-18) 21 MG/DL (7-18) 21 MG/DL (7-18) Random Glucose 210 MG/DL (74-106) 141 MG/DL (74-106) 136 MG/DL (74-106) Calcium Level 8.1 MG/DL (8.5-10.1) 8.2 MG/DL (8.5-10.1) Estimat Glomerular Filtration Rate 79 ML/MIN (>89) 77 ML/MIN (>89) 77 ML/MIN (>89) Hospital Course (1) Acute exacerbation of congestive heart failure 1. acute systolic chf. lower extremity edema. EF 20% hx aicd/pm 2. c/o right back pain.. seems msk. improved 3. dm 2. poor control. hgba1c now down to 9.. 4. 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 htn 6. possible hx cva. s/p tpa. dx seemed to be in question per neuro documentation but they recommended anticoagulation. there is vague mentions of pafib in notes but we have no definitive proof. pt doesn't know Pt admitted and given iv lasix with good diuresis and essentially total resolution of his lower extremity edema and improved sob. He was seen by cardiology who agreed with management. his aldactone was changed to lasix and will need continued monitoring of his bmp on d/c to assure toleration. He was continued on bb coreg and low dose allison lisinipril added for chf. He will continue his metformin and glyburide and pt notes he is using levemir 30u at night. will lower while at snf to avoid hypoglycemia but recent hgba1c did improve from 12 to 9. continued follow up and titration of meds with pcp. His gabapentin was moved to night time to avoid daytime sleepiness Pt currently is homeless. He was planning to go back to a volunteer substance abuse rehab. We will place him in snf for further subacute inpatient medical management of his heart failure. And to further decide on best ways that fhcp complex CM can work with him to get his medications and keep appt's to avoid decompensation, and readmission. (2) DM type 2 (diabetes mellitus, type 2) ICD Codes: E11.9 - Type 2 diabetes mellitus without complications Status: Chronic (3) Hypertension ICD Codes: I10 - Essential (primary) hypertension Status: Chronic (4) CAD (coronary artery disease) ICD Codes: I25.10 - Atherosclerotic heart disease of [place] coronary artery without angina pectoris Status: Chronic Pt Condition on Discharge: Stable Discharge Disposition: Discharge to SNF Discharge Instructions DIET: Follow Instructions for: Diabetic Diet Activities you can perform: Regular-No Restrictions Follow up Referrals: Cardiology - [address] liliana owens PCP Follow-up - [address] Cannon New Medications: Potassium Chloride ER (K-Tab) 10 Meq Tab 10 MEQ PO BID for Electrolyte Replacement, #60 TAB 0 Refills Furosemide (Furosemide) 40 Mg Tab 40 MG PO BID@09,18 for heart failure, #60 TAB Gabapentin (Neurontin) 300 Mg Cap 300 MG PO HS for peripheral neuropathy, #30 CAP Lisinopril (Lisinopril) 5 Mg Tab 2.5 MG PO DAILY for heart failure, #30 TAB Changed Medications: Insulin Detemir Inj (Levemir Inj) 1,000 unit/ 10 ML Vial 15 UNITS SQ HS for Blood Sugar Management for 30 Days, VIAL 0 Refills (Changed from: 30 UNITS) Do not mix with any other Insulin. Continued Medications: Apixaban (Eliquis) 5 Mg Tab 5 MG PO BID for Blood Clot Prevention, #60 TAB 0 Refills Atorvastatin (Atorvastatin) 80 Mg Tab 80 MG PO HS for Cholesterol Management, #30 TAB 3 Refills Carvedilol (Coreg) 6.25 Mg Tab 12.5 MG PO BID, #60 TAB 0 Refills Glyburide (Glyburide) 5 Mg Tab 5 MG PO BID for Blood Sugar Management, #60 TAB 0 Refills Take with meals at the same time each day Metformin (Glucophage) 500 Mg Tab 500 MG PO BIDPC for Blood Sugar Management, #60 TAB 0 Refills Discontinued Medications: Aspirin DR (Aspirin 81) 81 Mg Tabdr 81 MG PO DAILY for Blood Clot Prevention, #30 TAB 0 Refills Gabapentin (Gabapentin) 100 Mg Cap 100 MG PO TID for diabetic neuropathy , #90 CAP Spironolactone (Spironolactone) 25 Mg Tab 25 MG PO DAILY for Blood Pressure Management, #30 TAB 0 Refills Rosalino Hanley MD August 11, 2017 09:35
[2017-08-11 12:40] VITALS: BP 110/73; PULSE 64; RESP 18; TEMP 97.2; O2SAT 98
[2017-08-11 16:35] VITALS: BP 103/63; PULSE 71; RESP 20; TEMP 97.5; O2SAT 100
== END 2017-08-11 16:55 | DRG 293 ==
LOC: NEPE 12:52 → NEDA 17:14 → N04A 19:50
PROVIDERS: ADMIT Hospitalist; ATTEND Hospitalist
DX: I11.0 Hypertensive heart disease with heart failure (principal); E11.42 Type 2 diabetes mellitus with diabetic polyneuropathy; I42.0 Dilated cardiomyopathy; I25.10 Atherosclerotic heart disease of native coronary artery without angina pectoris; F32.9 Major depressive disorder, single episode, unspecified; I50.23 Acute on chronic systolic (congestive) heart failure; E78.5 Hyperlipidemia, unspecified; E11.65 Type 2 diabetes mellitus with hyperglycemia; Z79.01 Long term (current) use of anticoagulants; Z86.73 Personal history of transient ischemic attack (TIA), and cerebral infarction without residual deficits; Z95.810 Presence of automatic (implantable) cardiac defibrillator; Z79.82 Long term (current) use of aspirin; Z79.899 Other long term (current) drug therapy; Z95.5 Presence of coronary angioplasty implant and graft
CPT/HCPCS: 71045; 76705; 80048; 80053; 81001; 82550; 82570; 82728; 82948; 83036; 83540; 83550; 83735; 83880; 84100; 84156; 84484; 85025; 85610; 85730; 93005; 96374; J1815; J1940

== ENCOUNTER 2017-08-19 00:58 | Emergency (ER) | payer MEDICARE, OTHER ==
[~2017-08-19] VITALS: Ht 170.2 cm; Wt 85.5 kg
[~2017-08-19 00:58] MED LIST changes: -ALBUAER3 INH; -ASPI1TAB57 PO; -DICL75TA PO; -FURO1TAB60 PO; +FURO40TA PO; -GABA100C4 PO; +K-TA10TA PO; +LEVEMIR SQ; -LEXA10TA PO; +LISI-519 PO; -LISI2.5T3 PO; +NEUR300C PO; -POTA10TA2 PO; -SPIR25TA PO
[2017-08-19 00:59] VITALS: BP 100/64; PULSE 76; RESP 16; TEMP 98; O2SAT 100
[2017-08-19 01:20] LABS: BASOPHIL # 0.1 TH/MM3 (0-0.2); EOSINOPHIL # 0.1 TH/MM3 (0-0.4); HEMATOCRIT 41.2 % (39.0-51.0); HEMOGLOBIN 13.6 GM/DL (13.0-17.0); LYMPH % 16.7 % (9.0-44.0); LYMPHOCYTE # 1.3 TH/MM3 (1.0-4.8); MEAN CELL VOLUME 66.2 FL (80.0-100.0); MEAN CORPUSCULAR HEMOGLOBIN 21.9 PG (27.0-34.0); MEAN PLATELET VOLUME 9.1 FL (7.0-11.0); MONO % 6.3 % (0.0-8.0); MONOCYTE # 0.5 TH/MM3 (0-0.9); PLATELET COUNT 166 TH/MM3 (150-450); RED BLOOD COUNT 6.23 MIL/MM3 (4.50-5.90); RED CELL DISTRIBUTION WIDTH 19.5 % (11.6-17.2)
--- NOTE | 2017-08-19 01:20 | PD ---
HPI Chief Complaint: Syncope/Near-Syncope Time Seen by Provider: 01:05 Travel History International Travel<30 days: No Contact w/Intl Traveler<30days: No Traveled to known affect area: No History of Present Illness HPI Per patient he recalls going to the bathroom to have a bowel movement, next thing he recalls he was sitting up on the EVAC stretcher. Patient is from some the with rehab, where they described that he had a syncopal episode but without any seizure-like activity, and that he struck the right side of his head during the fall. Patient denies feeling any associated factors such as prior headache , dizziness, chest pain, palpations, nausea, vomiting, diarrhea prior to blackout. No alleviating or aggravating factors. Per retirement staff and EMS staff the patient had a single glucose reading of 50 while the patient was still confused, patient was given p.o. drink at retirement and sent via ambulance to the emergency department for further evaluation States allergy to Dilaudid and phenobarbital however the patient cannot recall what his reactions were Past medical history significant for corrective lenses, CVA, CHF, AICD pacemaker , stent, atrial fibrillation, hypertension, diabetes, anxiety, claustrophobia, PFSH Past Medical History Hx Anticoagulant Therapy: Yes Asthma: No Atrial Fibrillation: Yes Blood Disorders: No Anxiety: Yes Depression: No Heart Rhythm Problems: Yes Cancer: No Cardiac Catheterization: Yes Cardiovascular Problems: Yes (CHF) High Cholesterol: No Chemotherapy: No Chest Pain: Yes Congestive Heart Failure: No COPD: No Cerebrovascular Accident: Yes (mini) Diabetes: Yes Patient Takes Glucophage: Yes Diminished Hearing: No Endocrine: No Gastrointestinal Disorders: No Genitourinary: No Headaches: No Hypertension: Yes Immune Disorder: No Implanted Vascular Access Dvce: Yes Musculoskeletal: Yes Neurologic: Yes Psychiatric: Yes Reproductive: No Respiratory: No Immunizations Current: Yes Migraines: No Myocardial Infarction: Yes (X 1 IN 2009) Radiation Therapy: No Seizures: No Sleep Apnea: No Thyroid Disease: No Past Surgical History AICD: Yes ([id number]) Arteriovenous Shunt: No Body Medical Devices: pacer and defibrillator inplants Cardiac Surgery: Yes (AICD/PACER, stent) Coronary Stent: Yes (X 1 ) Insulin Pump: No Joint Replacement: No Pacemaker: Yes Other Surgery: Yes (several AICD placements, pacer inserted) Social History Alcohol Use: Yes (SOCIALLY) Tobacco Use: Yes Substance Use: Yes (marijuana) Allergies-Medications (Allergen,Severity, Reaction): Coded Allergies: hydromorphone (Verified Allergy, Severe, Hives, 08/19/17) phenobarbital (Unverified Allergy, Unknown, 08/19/17) Reported Meds & Prescriptions Reported Meds & Active Scripts Active Levemir Inj (Insulin Detemir) 1,000 unit/ 10 ML Vial 15 Units SQ HS 30 Days Do not mix with any other Insulin. K-Tab (Potassium Chloride) 10 Meq Tab 10 Meq PO BID Furosemide 40 Mg Tab 40 Mg PO BID@ Neurontin (Gabapentin) 300 Mg Cap 300 Mg PO HS Lisinopril 5 Mg Tab 2.5 Mg PO DAILY Atorvastatin (Atorvastatin Calcium) 80 Mg Tab 80 Mg PO HS Reported Eliquis (Apixaban) 5 Mg Tab 5 Mg PO BID Coreg (Carvedilol) 6.25 Mg Tab 12.5 Mg PO BID Glucophage (Metformin HCl) 500 Mg Tab 500 Mg PO BIDPC Glyburide 5 Mg Tab 5 Mg PO BID Take with meals at the same time each day Review of Systems General / Constitutional: No: Fever Eyes: No: Visual changes HENT: No: Headaches Cardiovascular: No: Chest Pain or Discomfort Respiratory: No: Shortness of Breath Gastrointestinal: No: Abdominal Pain Genitourinary: No: Dysuria Musculoskeletal: No: Pain Skin: No Rash Neurologic: Positive: Syncope Psychiatric: No: Depression Endocrine: No: Polydipsia Hematologic/Lymphatic: No: Easy Bruising Physical Exam Narrative GENERAL: SKIN: Warm and dry. HEAD: Atraumatic. Normocephalic. EYES: Pupils equal and round. No scleral icterus. No injection or drainage. ENT: No nasal bleeding or discharge. Mucous membranes pink and moist. NECK: Trachea midline. No JVD. CARDIOVASCULAR: Regular rate and rhythm. RESPIRATORY: No accessory muscle use. Clear to auscultation. Breath sounds equal bilaterally. GASTROINTESTINAL: Abdomen soft, non-tender, nondistended. MUSCULOSKELETAL: Extremities without clubbing, cyanosis, or edema. No obvious deformities. NEUROLOGICAL: Awake and alert. No obvious cranial nerve deficits. Motor grossly within normal limits. Five out of 5 muscle strength in the arms and legs. Normal speech. PSYCHIATRIC: Appropriate mood and affect; insight and judgment normal. Data Data Last Documented VS Vital Signs Date Time Temp Pulse Resp B/P (MAP) Pulse Ox O2 Delivery O2 Flow Rate FiO2 08/19/17 00:59 98.0 76 16 100/64 (76) 100 Orders Orders Electrocardiogram (08/19/17 01:05) Complete Blood Count With Diff (08/19/17 01:05) Comprehensive Metabolic Panel (08/19/17 01:05) Ckmb (Isoenzyme) Profile (08/19/17 01:05) Troponin I (08/19/17 01:05) Prothrombin Time / Inr (Pt) (08/19/17 01:05) Act Partial Throm Time (Ptt) (08/19/17 01:05) Lipase (08/19/17 01:05) Urinalysis - C+S If Indicated (08/19/17 01:05) Chest, Single Ap (08/19/17 01:05) Ct Brain W/O Iv Contrast(Rout) (08/19/17 01:05) Iv Access Insert/Monitor (08/19/17 01:05) Ecg Monitoring (08/19/17 01:05) Oximetry (08/19/17 01:05) Orthostatic Vital Signs (08/19/17 01:05) Blood Glucose (08/19/17 01:05) Drug Screen, Random Urine (08/19/17 01:05) Alcohol (Ethanol) (08/19/17 01:05) Salicylates (Aspirin) (08/19/17 01:05) Tylenol (Acetaminophen) (08/19/17 01:05) Labs Laboratory Tests Test 08/19/17 01:05 White Blood Count 8.0 TH/MM3 Red Blood Count 6.23 MIL/MM3 Hemoglobin 13.6 GM/DL Hematocrit 41.2 % Mean Corpuscular Volume 66.2 FL Mean Corpuscular Hemoglobin 21.9 PG Mean Corpuscular Hemoglobin Concent 33.0 % Red Cell Distribution Width 19.5 % Platelet Count 166 TH/MM3 Mean Platelet Volume 9.1 FL Neutrophils (%) (Auto) 75.0 % Lymphocytes (%) (Auto) 16.7 % Monocytes (%) (Auto) 6.3 % Eosinophils (%) (Auto) 1.0 % Basophils (%) (Auto) 1.0 % Neutrophils # (Auto) 6.0 TH/MM3 Lymphocytes # (Auto) 1.3 TH/MM3 Monocytes # (Auto) 0.5 TH/MM3 Eosinophils # (Auto) 0.1 TH/MM3 Basophils # (Auto) 0.1 TH/MM3 CBC Comment DIFF FINAL Differential Comment Prothrombin Time 13.4 SEC Prothromb Time International Ratio 1.3 RATIO Activated Partial Thromboplast Time 29.4 SEC Blood Urea Nitrogen 18 MG/DL Creatinine 1.48 MG/DL Random Glucose 120 MG/DL Total Protein 6.9 GM/DL Albumin 3.1 GM/DL Calcium Level 8.2 MG/DL Alkaline Phosphatase 216 U/L Aspartate Amino Transf (AST/SGOT) 38 U/L Alanine Aminotransferase (ALT/SGPT) 35 U/L Total Bilirubin 0.9 MG/DL Sodium Level 142 MEQ/L Potassium Level 3.8 MEQ/L Chloride Level 103 MEQ/L Carbon Dioxide Level 28.1 MEQ/L Anion Gap 11 MEQ/L Estimat Glomerular Filtration Rate 63 ML/MIN Total Creatine Kinase 51 U/L Troponin I 0.02 NG/ML Lipase 149 U/L Salicylates Level LESS THAN 1.7 MG/DL Ethyl Alcohol Level LESS THAN 3 MG/DL [facility] Medical Decision Making Medical Screen Exam Complete: Yes Emergency Medical Condition: Yes Medical Record Reviewed: Yes Interpretation(s) EKG shows pacemaker rhythm Differential Diagnosis Syncope versus dysrhythmia versus vasovagal versus anemia versus dehydration versus hypoglycemia Narrative Course CBC shows no leukocytosis, no anemia, normal platelet count and no left shift Coagulation profile is within normal limits Negative Tylenol salicylate and alcohol levels Electrolytes are all within normal limits, with exception of creatinine 1.48 GFR 63, of particular note the random glucose was 120. Normal electrolytes normal sodium potassium chloride. First set of cardiac enzymes negative Normal liver and pancreatic functions Patient was encouraged and tolerated p.o. challenge. No evidence of any nausea vomiting or any repeat syncopal episode. Diagnosis Primary Impression: Resolve syncopal episode likely secondary to hypoglycemia Patient Instructions: General Instructions, Syncope (ED) Disposition: 03 DISCHARGE TO SNF Condition: Stable Ricky Roman MD August 19, 2017 01:20
[2017-08-19 01:30] LABS: INTERNATIONAL NORMALIZED RATIO 1.3 RATIO; PROTHROMBIN TIME - PATIENT 13.4 SEC (9.8-11.6)
--- NOTE | 2017-08-19 01:48 | RADRPT ---
EXAM DATE: 08/19/2017 1:41 AM EDT AGE/SEX: 42 years / Male INDICATIONS: Syncopal episode. CLINICAL DATA: This is the patient's initial encounter. Patient reports that signs and symptoms have been present for 1 day and indicates a pain score of 0/10. MEDICAL/SURGICAL HISTORY: Hypercholesterolemia. Congestive heart failure. Hypertension. [place] A -Fib Diabetes Coronary artery stent. Pacemaker. COMPARISON: [facility] [place], [place]. . FINDINGS: A single AP view of the chest demonstrates the lungs to be symmetrically aerated without evidence of mass, infiltrate or effusion. The cardiomediastinal contours are unremarkable. Osseous structures a re intact. Left side cardiac pacer/defibrillator again noted. CONCLUSION: No evidence of acute cardiopulmonary disease. Electronically signed by: Home Zelaya MD 08/19/2017 1:47 AM EDT
--- NOTE | 2017-08-19 01:51 | RADRPT ---
EXAM DATE: 08/19/2017 1:43 AM EDT AGE/SEX: 42 years / Male INDICATIONS: Trauma, fall. Syncopal episode. On blood thinners. CLINICAL DATA: This is the patient's initial encounter. Patient reports that signs and symptoms have been present for 1 day and indicates a pain score of 0/10. MEDICAL/SURGICAL HISTORY: None. None. RADIATION DOSE: 56.35 CTDI (mGy) COMPARISON: [facility] – [place], [place] BRAIN W/O CONTRAST, 05/04/2017. . TECHNIQUE: CT of the head without contrast. Using automated exposure control and adjustment of the mA and/or kV according to patient size, radiation dose was kept as low as reasonably achievable to ob tain optimal diagnostic quality images. FINDINGS: Cerebrum: The ventricles are normal for age. No evidence of midline shift, mass lesion, hemorrhage or acute infarction. No extraaxial fluid collections are seen. Posterior Fossa: The cerebellum and brainstem are intact. The 4th ventricle is midline. The cerebe llopontine angle is unremarkable. Extracranial: The visualized portion of the orbits is intact. Skull: The calvaria is intact. No evidence of skull fracture. CONCLUSION: Negative noncontrast head CT. Electronically signed by: Home Zelaya MD 08/19/2017 1:50 AM EDT
[2017-08-19 02:00] LABS: ALBUMIN 3.1 GM/DL (3.4-5.0); ALT (GPT) 35 U/L (12-78); AST (GOT) 38 U/L (15-37); BICARBONATE 28.1 MEQ/L (21.0-32.0); BLOOD UREA NITROGEN 18 MG/DL (7-18); CALCIUM 8.2 MG/DL (8.5-10.1); CHLORIDE 103 MEQ/L (98-107); CREATININE 1.48 MG/DL (0.60-1.30); GLOMERULAR FILTRATION RATE 63 ML/MIN (>89); GLUCOSE,RANDOM 120 MG/DL (74-106); SODIUM (NA) 142 MEQ/L (136-145)
[2017-08-19 02:02] LABS: ALKALINE PHOSPHATASE 216 U/L (45-117); TOTAL BILIRUBIN ADULT 0.9 MG/DL (0.2-1.0); TOTAL PROTEIN 6.9 GM/DL (6.4-8.2); TROPONIN I 0.02 NG/ML (0.02-0.05)
[2017-08-19 02:14] LABS: ACETAMINOPHEN LESS THAN 2.0 MCG/ML (10.0-30.0)
--- NOTE | 2017-08-19 15:29 | EKG ---
Date Performed: 08/19/2017 Time Performed: 01:34:53 PTAGE: 42 years EKG: ELECTRONIC VENTRICULAR PACEMAKER ABNORMAL RHYTHM ECG Compared to PREVIOUS TRACING , no change. PREVIOUS TRACIN08/07/2017 14.52 DOCTOR: Rosalino Thibodeaux Interpretating Date/Time 08/19/2017 15:28:20
== END 2017-08-19 07:25 ==
LOC: NEPC 00:58
DX: R55 Syncope and collapse (principal); F12.90 Cannabis use, unspecified, uncomplicated; E11.9 Type 2 diabetes mellitus without complications; I11.0 Hypertensive heart disease with heart failure; I50.9 Heart failure, unspecified; Z72.0 Tobacco use; Z79.4 Long term (current) use of insulin; Z79.899 Other long term (current) drug therapy
CPT/HCPCS: 70450; 71045; 80053; 80307; 82550; 83690; 84484; 85025; 85610; 85730; 93005